=== PATIENT | female | born 1995 | race African-American/Black ===

== ENCOUNTER 2020-05-28 03:27 | Emergency (ER) | payer MEDICAID, SELFPAY ==
--- NOTE | 2020-05-28 | CT_ITS ---
EXAMINATION: CT ABDOMEN AND PELVIS WITH CONTRAST CLINICAL INFORMATION: Abdominal pain COMPARISON: 07/07/2019 TECHNIQUE: Multidetector volumetric images were obtained from the superior aspect of the liver through the pubic symphysis following administration 85 mL of Omnipaque 350 intravenous contrast. Sagittal and coronal reformatted images were obtained on the technologist's workstation. Oral contrast: No This CT examination was performed using dose optimization techniques as appropriate, variously including the following: *Automated exposure control *Adjustment of mA and/or kV according to patient size (this includes techniques or standardized protocols for targeted exams where dose is matched to indication/reason for exam; i.e. extremities or head) *Use of iterative reconstruction technique DLP: 437 mGy-cm FINDINGS: LUNG BASES: The visualized lung bases are unremarkable. LIVER, GALLBLADDER, AND BILIARY TREE: The liver is normal in size, shape, and attenuation. Mild focal fatty infiltration along the falciform. No focal hepatic lesion or biliary ductal dilatation is present. The gallbladder is unremarkable with no evidence of radiopaque gallstones, gallbladder wall thickening, or obvious pericholecystic inflammatory changes. PANCREAS: Unremarkable. SPLEEN: Unremarkable. ADRENAL GLANDS: Unremarkable. KIDNEYS AND URETERS: The kidneys are normal in size, shape, and attenuation. No hydronephrosis, hydroureter, or calculi seen. No perinephric stranding. BLADDER: Unremarkable. GASTROINTESTINAL TRACT: The stomach is unremarkable. Normal caliber small bowel. There is no obstruction. Normal appendix. No colonic wall thickening or acute inflammatory change. No free air. No significant free fluid. ABDOMINAL WALL: No significant hernia is appreciated. LYMPH NODES: Normal. VASCULAR: Unremarkable. PELVIC VISCERA: The uterus and adnexa are unremarkable. OSSEOUS STRUCTURES: No acute or suspicious osseous abnormality. IMPRESSION: No acute findings in the abdomen or pelvis. No inflammatory changes.
[2020-05-28 03:34] VITALS: BP 113/75; PULSE 98; RESP 18; TEMP 36.6; O2SAT 98; BMI 23.8
--- NOTE | 2020-05-28 04:09 | ED.SEIZURE ---
HPI - Seizure General Chief Complaint: Seizure Stated Complaint: SEIZURE,WITNESSED BY BF Time Seen by Provider: 05/28/20 04:07 History of Present Illness HPI Narrative: this is a 24-year-old female with history of seizures and reports her last seizure was 1 month ago and 2 weeks ago she started having adverse effects to a seizure medication that starts with a D and so her physician told her she could go ahead and simply take the Keppra which she has been doing consistently and states that the dose is 750 mg a day. She says the day before yesterday she was not feeling well and then last night began having seizures with incontinence of urine and she states that as per her significant other they were back to back . She states that her significant other cleaned her up in the bathtub and called EMS. She denies any recent fevers, chills, nausea, vomiting, diarrhea. Related Data Allergies Allergy/AdvReac Type Severity Reaction Status Date / Time haloperidol [From HALDOL] Allergy Intermediate TACHYCARDIA Unverified 05/06/20 16:38 FROM IV ROUTE, tachycardia metoclopramide [From REGLAN] Allergy Unknown LIKE I'M Unverified 05/06/20 16:38 GOING TO JUMP OUT OF MY SKIN , Feels like im going to jump out of my skin. SEASONAL ALLERGIES Allergy Unknown ITCHY./WATER Uncoded 05/06/20 16:38 EYES Review of Systems Review of Systems: Pertinent positives and negatives as stated in the HPI. GEN: no fevers, chills, fatigue HEENT: no nasal congestion, sore throat, ear pain NEURO: no headache, dizziness, focal weakness PULM: no cough, shortness of breath CV: no chest pain, palpitations, LE edema ABD: no abdominal pain, nausea, vomiting, diarrhea : no dysuria, urgency, frequency SKIN: no rash ROS otherwise negative x 10 PMFSH Past Medical History Source: nursing notes reviewed Medical History Anxiety Asthma Epilepsia Social History Social History Advance Directives: No Advance Directives Information Provided: No Physical Exam Vital Signs and I&O and Narrative: Vital Signs and I&O: Vital Signs Temp 98.0 F 05/28/20 07:25 Pulse 104 H 05/28/20 07:25 Resp 16 05/28/20 07:25 BP 125/88 05/28/20 07:25 Pulse Ox 100 05/28/20 07:25 Body Mass Index 23.8 VITAL SIGNS: Reviewed. GENERAL: Well developed, well nourished, in no acute distress. HEAD: Normocephalic/atraumatic, EYES: PERRLA, EOMI intact without pain, no nystagmus/pallor/icterus noted EARS: Ext canals without abnormality, TMs non-bulging and non-erythematous NOSE: Nares patent bilateral OROPHARYNX: no oral lesions noted, posterior pharynx clear and non-erythematous without noted tonsillar enlargement/erythema/exudates NECK: Supple, no adenopathy LUNGS: Normal breath sounds. No adventitious sounds or accessory muscle use. SpO2< 98%> CARDIOVASCULAR: Regular rate and rhythm without noted murmurs, no JVD or lower extremity edema. ABDOMEN: Soft, non-tender, non-distended with bowel sounds. No rigidity. No guarding. No palpable masses or hernias noted MUSCULOSKELETAL: No tenderness, deformities, or effusions noted on gross inspection. EXTREMITIES: No cyanosis, clubbing or edema. SKIN: Inspection of the skin reveals no rashes, ulcerations, jaundice, pallor, or petechiae. NEUROLOGIC: Alert and oriented x 4. Strength and sensation to light touch were grossly intact x 4. Course Course Course Narrative: This is a 24-year-old female with history and clinical presentation consistent with acute seizure with background of epilepsy. There has been recent adjustment to her medications which may explain the seizures that she experienced this evening, and while here in the emergency department she had a panic attack and received Ativan with good resolution of those symptoms. On arrival to the emergency department she was noted to no longer be postictal. On review of all workup there are no electrolyte, anemia, alternative or neurologic symptoms that would necessitate further evaluation in an inpatient setting. The thing was discussed with the patient at bedside, to include that this event is likely secondary to recent medication adjustments and patient acknowledges the need to follow-up with her primary care provider for further assessment. MDM - Seizure Lab Data Result diagrams: 05/28/20 05:28 05/28/20 05:28 Labs: Lab Results 05/28/20 05/28/20 05/28/20 Range/Units 05:28 05:28 05:28 WBC 12.5 H (4.8-10.8) X10*3/uL RBC 4.15 L (4.20-5.50) X10*6/uL Hgb 13.8 (12.0-16.0) g/dl Hct 40.4 (37-47) % MCV 97.3 (80-98) fL MCH 33.3 H (27.0-33.0) pg MCHC 34.2 (31.0-35.0) g/dl RDW 12.8 (11.0-16.0) % Plt Count 272 (160-400) X10*3/uL MPV 8.7 L (9.4-12.3) fL Immature Gran % (Auto) 0.2 (0.0-0.4) % Neut % (Auto) 83.7 H (45-73) % Lymph % (Auto) 11.2 L (20-40) % [place] % (Auto) 3.6 (2-11) % Eos % (Auto) 0.7 (0-4) % Baso % (Auto) 0.6 (0-2) % Lymph # (Auto) 1.4 (1.2-4.9) X10*3/uL [place] # (Auto) 0.5 (0.1-1.2) X10*3/uL Eos # (Auto) 0.1 (0.0-0.4) X10*3/uL Baso # (Auto) 0.1 (0.0-0.2) X10*3/uL Abs Immat Gran (auto) 0.03 (0.00-0.03) X10*3/uL Absolute Neuts (auto) 10.5 H (2.0-8.3) X10*3/uL Absolute Nucleated RBC 0.000 (0.0-0.012) X10*3/uL Nucleated RBC % (auto) 0.0 (0.0-0.2) /100WBC Sodium 141 (135-145) mmol/L Potassium 4.0 (3.3-5.1) mmol/l Chloride 110 H (96-108) mmol/L Carbon Dioxide 23 (22-29) mmol/L Anion Gap 12 (12-20) BUN 10 (9-16) mg/dL Creatinine 0.79 (0.5-1.4) mg/dL Estim Creat Clear Calc 87.6 Estimated GFR > 60 Random Glucose 117 H (60-115) mg/dL Calcium 9.0 (8.4-10.2) mg/dL Total Bilirubin 0.2 (0.0-1.0) mg/dL AST 17 (5-31) U/L ALT 10 (0-31) U/L Alkaline Phosphatase 35 L (39-117) U/L Total Protein 7.0 (6.5-8.0) g/dL Albumin 4.4 (3.5-5.0) g/dL Beta HCG, Quant < 2 mIU/mL Urine Color Urine Appearance Urine pH (5.0-8.0) Ur Specific [place] (1.005-1.025) Urine Protein (NEG-TRACE) MG/DL Urine Glucose (UA) (NEG) MG/DL Urine Ketones (NEG) MG/DL Urine Blood (NEG) Urine Nitrite (NEG) Ur Leukocyte Esterase (NEG) Urine RBC (0) /HPF Urine WBC (0-4) /HPF Ur Squamous Epith Cells /LPF Amorphous Sediment /LPF Urine Bacteria /LPF Urine Mucus /LPF Urine Test (NEGATIVE) Levetiracetam <1.0 L (12.0-46.0) mcg/mL 05/28/20 Range/Units 07:19 WBC (4.8-10.8) X10*3/uL RBC (4.20-5.50) X10*6/uL Hgb (12.0-16.0) g/dl Hct (37-47) % MCV (80-98) fL MCH (27.0-33.0) pg MCHC (31.0-35.0) g/dl RDW (11.0-16.0) % Plt Count (160-400) X10*3/uL MPV (9.4-12.3) fL Immature Gran % (Auto) (0.0-0.4) % Neut % (Auto) (45-73) % Lymph % (Auto) (20-40) % [place] % (Auto) (2-11) % Eos % (Auto) (0-4) % Baso % (Auto) (0-2) % Lymph # (Auto) (1.2-4.9) X10*3/uL [place] # (Auto) (0.1-1.2) X10*3/uL Eos # (Auto) (0.0-0.4) X10*3/uL Baso # (Auto) (0.0-0.2) X10*3/uL Abs Immat Gran (auto) (0.00-0.03) X10*3/uL Absolute Neuts (auto) (2.0-8.3) X10*3/uL Absolute Nucleated RBC (0.0-0.012) X10*3/uL Nucleated RBC % (auto) (0.0-0.2) /100WBC Sodium (135-145) mmol/L Potassium (3.3-5.1) mmol/l Chloride (96-108) mmol/L Carbon Dioxide (22-29) mmol/L Anion Gap (12-20) BUN (9-16) mg/dL Creatinine (0.5-1.4) mg/dL Estim Creat Clear Calc Estimated GFR Random Glucose (60-115) mg/dL Calcium (8.4-10.2) mg/dL Total Bilirubin (0.0-1.0) mg/dL AST (5-31) U/L ALT (0-31) U/L Alkaline Phosphatase (39-117) U/L Total Protein (6.5-8.0) g/dL Albumin (3.5-5.0) g/dL Beta HCG, Quant mIU/mL Urine Color YELLOW Urine Appearance HAZY Urine pH 8.5 H (5.0-8.0) Ur Specific [place] 1.010 (1.005-1.025) Urine Protein NEG (NEG-TRACE) MG/DL Urine Glucose (UA) NEG (NEG) MG/DL Urine Ketones NEG (NEG) MG/DL Urine Blood 1+ H (NEG) Urine Nitrite NEG (NEG) Ur Leukocyte Esterase NEG (NEG) Urine RBC 0-2 (0) /HPF Urine WBC 0 (0-4) /HPF Ur Squamous Epith Cells TRACE /LPF Amorphous Sediment 2+ /LPF Urine Bacteria NONE /LPF Urine Mucus 1+ /LPF Urine Test NEGATIVE (NEGATIVE) Levetiracetam (12.0-46.0) mcg/mL Discharge Plan Discharge Clinical Impression: Seizure Patient Disposition: Home, Self-Care Instructions: Epilepsy (ED) Additional Instructions: Resume all home medications as prescribed. Please call the office of your primary care provider today and schedule a follow-up appointment. The patient and/or family acknowledge understanding of results (as applicable), diagnosis, treatment plan, need for follow up, and symptoms that should prompt a return to the emergency room. Referrals: Arianne Goldberg NP [Nurse Practitioner] - 2 days ( Recurrent seizures and follow-up on Keppra level) Interventions: ED Discharge Assessment Last Done: 05/28/20 08:01 Discharge Date/Time: 05/28/20 08:10
[2020-05-28 04:55] VITALS: BP 115/75; PULSE 110; RESP 20
[2020-05-28] MEDS: ondansetron HCL 4 MG/2 ML VIAL IVPUSH (05:29)
[2020-05-28 05:33] LABS: MANUAL DIFF FLAG NO
[2020-05-28 05:34] LABS: Basophils Absolute Auto 0.1 X10*3/uL (0.0-0.2); Basophils Percent Auto 0.6 % (0-2); Eosinophils Absolute Auto 0.1 X10*3/uL (0.0-0.4); Eosinophils Percent Auto 0.7 % (0-4); Hematocrit 40.4 % (37-47); Hemoglobin 13.8 g/dl (12.0-16.0); Imm Gran Abs Auto 0.03 X10*3/uL (0.00-0.03); Imm Gran Pct Auto 0.2 % (0.0-0.4); Lymphocytes Absolute Auto 1.4 X10*3/uL (1.2-4.9); Lymphocytes Percent Auto 11.2 % (20-40); Mean Corpuscular HGB Conc 34.2 g/dl (31.0-35.0); Mean Corpuscular Hemoglobin 33.3 pg (27.0-33.0); Mean Corpuscular Volume 97.3 fL (80-98); Mean Platelet Volume 8.7 fL (9.4-12.3); Monocytes Absolute Auto 0.5 X10*3/uL (0.1-1.2); Monocytes Percent Auto 3.6 % (2-11); Neutrophils Absolute Auto 10.5 X10*3/uL (2.0-8.3); Neutrophils Percent Auto 83.7 % (45-73); Platelet Count 272 X10*3/uL (160-400); Red Blood Count 4.15 X10*6/uL (4.20-5.50); Red Cell Distribution Width 12.8 % (11.0-16.0); White Blood Count 12.5 X10*3/uL (4.8-10.8)
[2020-05-28 05:58] LABS: Alanine Aminotransferase 10 U/L (0-31); Albumin Level 4.4 g/dL (3.5-5.0); Alkaline Phosphatase 35 U/L (39-117); Anion Gap 12 (12-20); Aspartate Amino Transferase 17 U/L (5-31); Bilirubin Total 0.2 mg/dL (0.0-1.0); Blood Urea Nitrogen 10 mg/dL (9-16); Carbon Dioxide 23 mmol/L (22-29); Chloride 110 mmol/L (96-108); Creatinine Clr Calc Pharmacy 87.6; Estimated Glomerular Filt Rate > 60; Glucose Random 117 mg/dL (60-115); Sodium 141 mmol/L (135-145)
[2020-05-28] MEDS: iohexoL 350 MG/ML 100 ML INFUS..BTL 85 ML IV (06:14)
[2020-05-28 06:15] LABS: HCG Quantitative < 2 mIU/mL
[2020-05-28] MEDS: HYDROmorphone HCl 0.5 MG/0.5 ML SYRINGE IVPUSH (06:19)
[2020-05-28 06:22] VITALS: BP 115/75; PULSE 98; RESP 18; TEMP 36.7; O2SAT 100
[2020-05-28 07:25] VITALS: BP 125/88; PULSE 104; RESP 16; TEMP 36.7; O2SAT 100
[2020-05-28 07:38] LABS: Glucose Urine UA NEG (NEG); Leukocyte Esterase Urine NEG (NEG); Nitrite Urine NEG (NEG); PH 8.5 (5.0-8.0); Urine Blood 1+ (NEG); Urine Ketones NEG (NEG); Urine Protein NEG (NEG-TRACE)
[2020-05-28 07:44] LABS: Appearance Urine HAZY; Color Urine YELLOW
[2020-05-28 07:52] LABS: Amorphous Sediment Urine 2+ /LPF; Mucus Urine 1+ /LPF; RBC Urine 0-2 /HPF (0); Squamous Epithelial Cell Urine TRACE /LPF; WBC Urine 0 /HPF (0-4)
[2020-05-28 07:53] LABS: UPreg QC Valid YES; Urine Pregnancy NEGATIVE (NEGATIVE)
[2020-06-02 17:31] LABS: Levetiracetam Keppra <1.0 mcg/mL (12.0-46.0)
== END 2020-05-28 08:10 | disposition home or self-care (01) ==
PROVIDERS: Emergency Provider Student in an Organized Health Care Education/Training Program
DX: R56.9 Unspecified convulsions (principal)
CPT/HCPCS: 36415; 74177; 80053; 80177; 81001; 81025; 84702; 85025; 96374; 96375; 99284; J1170; J2405

== ENCOUNTER 2020-07-22 10:08 | Emergency (ER) | payer MEDICAID, SELFPAY ==
[2020-07-22 10:25] VITALS: BP 140/79; PULSE 87; RESP 16; TEMP 37; O2SAT 99; BMI 23.8
--- NOTE | 2020-07-22 10:46 | ED_ITS ---
HPI - Abdominal Pain General Chief Complaint: Abdominal Pain Stated Complaint: cramping spotting Time Seen by Provider: 07/22/20 10:34 Source: patient Mode of arrival: ambulatory History of Present Illness HPI narrative: 25-year-old female with a past medical history of anxiety, asthma, epilepsy, presenting to ED complaining of lower abdominal cramping x1 week. Admits had vaginal spotting, brownish in color starting on 07/16, lasting 2 days, saw OBGYN who did Pap smear, urine and STI testing that was negative. Patient reports vaginal spotting/discharge has stopped, but cramping continues. Admits to associated low back pain. LMP 06/28/2020. Patient is sexually active with 1 partner, denies concern for STI. Denies fever, chills, vomiting/diarrhea, dysuria/hematuria. MD elicited complaint: abdominal pain Related Data Allergies Allergy/AdvReac Type Severity Reaction Status Date / Time haloperidol [From HALDOL] Allergy Intermediate TACHYCARDIA Unverified 05/06/20 16:38 FROM IV ROUTE, tachycardia metoclopramide [From REGLAN] Allergy Unknown LIKE I'M Unverified 05/06/20 16:38 GOING TO JUMP OUT OF MY SKIN , Feels like im going to jump out of my skin. SEASONAL ALLERGIES Allergy Unknown ITCHY./WATER Uncoded 05/06/20 16:38 EYES Review of Systems Review of Systems Constitutional: No Weight loss, No Fever, No Chills Cardiovascular: No Chest Pain, No SOB Gastrointestinal: + Nausea, No Vomiting, No Diarrhea, No Constipation, + Abdominal pain Genitourinary: No irregular bleeding, No Dysuria, No Urinary Frequency, No Hematuria, No Flank Pain Skin: No Skin Lesions, No rash Yes all other systems are reviewed and are negative Physical Exam Vital Signs: Vital Signs: Last Vital Signs Temp 98.6 F 07/22/20 10:25 Pulse 87 07/22/20 10:25 Resp 16 07/22/20 10:25 BP 140/79 H 07/22/20 10:25 Pulse Ox 99 07/22/20 10:25 Body Mass Index 23.8 Const: General: cooperative and healthy appearing Orientation/consciousness: patient oriented x3 Limitations: no limitations HENMT: Head: Yes normal to inspection Ears: hearing grossly normal bilaterally General nose exam: Normal external nose present Face and sinus: Yes normal facial exam Eyes: General: appearance normal, both eyes and all related structures EOM: EOMs intact bilaterally Neck: Neck: Yes normal visual inspection Resp: Effort & Inspection: normal respiratory effort Cardio: Rate: regular rate GI: Inspection: Yes normal to inspection Palpation (GI): Soft to palpation, nontender, no guarding and not rigid : Other: Pelvic exam deferred General: Yes no CVA tenderness Back/Spine/Pelvis: Back: no CVA tenderness Skin: Rashes: no rashes Wounds: no wounds Neuro: General: patient oriented x3 Gait exam (Neuro): Normal gait present Extrem: General: Yes normal to inspection Course Course Course Narrative: -1222--labs unremarkable, beta quant negative, UA negative Results discussed with patient including close PCP/professor of apologetics follow-up. Worrisome signs and symptoms and strict return precautions discussed. Patient verbalized understanding feel safe for discharge home MDM - Abdominal Pain MDM Narrative Medical decision making narrative: 25-year-old female with a past medical history of anxiety, asthma, epilepsy, presenting to ED complaining of lower abdominal cramping x1 week. On exam VSS, NAD/well-appearing, abdomen soft/nontender. Concern for vs UTI. Low concern for appendicitis/diverticulitis/ovarian cyst or torsion without tenderness on exam. Unlikely STI with recent negative STI testing Plan: Labs, UA, reassess Lab Data Result diagrams: 07/22/20 11:13 07/22/20 11:13 Labs: Lab Results 07/22/20 07/22/20 07/22/20 Range/Units 11:00 11:13 11:13 WBC 7.4 (4.8-10.8) X10*3/uL RBC 4.18 L (4.20-5.50) X10*6/uL Hgb 13.7 (12.0-16.0) g/dl Hct 40.0 (37-47) % MCV 95.7 (80-98) fL MCH 32.8 (27.0-33.0) pg MCHC 34.3 (31.0-35.0) g/dl RDW 12.5 (11.0-16.0) % Plt Count 252 (160-400) X10*3/uL MPV 8.9 L (9.4-12.3) fL Immature Gran % (Auto) 0.3 (0.0-0.4) % Neut % (Auto) 73.8 H (45-73) % Lymph % (Auto) 19.7 L (20-40) % [place] % (Auto) 4.9 (2-11) % Eos % (Auto) 0.4 (0-4) % Baso % (Auto) 0.9 (0-2) % Lymph # (Auto) 1.5 (1.2-4.9) X10*3/uL [place] # (Auto) 0.4 (0.1-1.2) X10*3/uL Eos # (Auto) 0.0 (0.0-0.4) X10*3/uL Baso # (Auto) 0.1 (0.0-0.2) X10*3/uL Abs Immat Gran (auto) 0.02 (0.00-0.03) X10*3/uL Absolute Neuts (auto) 5.4 (2.0-8.3) X10*3/uL Absolute Nucleated RBC 0.000 (0.0-0.012) X10*3/uL Nucleated RBC % (auto) 0.0 (0.0-0.2) /100WBC Hold Blue Top SEE NOTE Sodium (135-145) mmol/L Potassium (3.3-5.1) mmol/l Chloride (96-108) mmol/L Carbon Dioxide (22-29) mmol/L Anion Gap (12-20) BUN (9-16) mg/dL Creatinine (0.5-1.4) mg/dL Estim Creat Clear Calc Estimated GFR Random Glucose (60-115) mg/dL Calcium (8.4-10.2) mg/dL Magnesium (1.6-2.6) mg/dL Total Bilirubin (0.0-1.0) mg/dL Direct Bilirubin (0.0-0.5) mg/dL AST (5-31) U/L ALT (0-31) U/L Alkaline Phosphatase (39-117) U/L Total Protein (6.5-8.0) g/dL Albumin (3.5-5.0) g/dL Lipase (8-78) U/L Beta HCG, Quant mIU/mL Urine Color YELLOW Urine Appearance HAZY Urine pH 7.0 (5.0-8.0) Ur Specific [place] 1.020 (1.005-1.025) Urine Protein NEG (NEG-TRACE) MG/DL Urine Glucose (UA) NEG (NEG) MG/DL Urine Ketones NEG (NEG) MG/DL Urine Blood 1+ H (NEG) Urine Nitrite NEG (NEG) Ur Leukocyte Esterase TRACE H (NEG) Urine RBC 1-4 (0) /HPF Urine WBC 1-4 (0-4) /HPF Ur Squamous Epith Cells 1+ /LPF Urine Bacteria NONE /LPF Urine Mucus 2+ /LPF Urine Test NEGATIVE (NEGATIVE) 07/22/20 Range/Units 11:13 WBC (4.8-10.8) X10*3/uL RBC (4.20-5.50) X10*6/uL Hgb (12.0-16.0) g/dl Hct (37-47) % MCV (80-98) fL MCH (27.0-33.0) pg MCHC (31.0-35.0) g/dl RDW (11.0-16.0) % Plt Count (160-400) X10*3/uL MPV (9.4-12.3) fL Immature Gran % (Auto) (0.0-0.4) % Neut % (Auto) (45-73) % Lymph % (Auto) (20-40) % [place] % (Auto) (2-11) % Eos % (Auto) (0-4) % Baso % (Auto) (0-2) % Lymph # (Auto) (1.2-4.9) X10*3/uL [place] # (Auto) (0.1-1.2) X10*3/uL Eos # (Auto) (0.0-0.4) X10*3/uL Baso # (Auto) (0.0-0.2) X10*3/uL Abs Immat Gran (auto) (0.00-0.03) X10*3/uL Absolute Neuts (auto) (2.0-8.3) X10*3/uL Absolute Nucleated RBC (0.0-0.012) X10*3/uL Nucleated RBC % (auto) (0.0-0.2) /100WBC Hold Blue Top Sodium 141 (135-145) mmol/L Potassium 3.7 (3.3-5.1) mmol/l Chloride 107 (96-108) mmol/L Carbon Dioxide 26 (22-29) mmol/L Anion Gap 12 (12-20) BUN 6 L (9-16) mg/dL Creatinine 0.72 (0.5-1.4) mg/dL Estim Creat Clear Calc 95.3 Estimated GFR > 60 Random Glucose 94 (60-115) mg/dL Calcium 8.8 (8.4-10.2) mg/dL Magnesium 2.0 (1.6-2.6) mg/dL Total Bilirubin 0.5 (0.0-1.0) mg/dL Direct Bilirubin 0.2 (0.0-0.5) mg/dL AST 16 (5-31) U/L ALT 9 (0-31) U/L Alkaline Phosphatase 34 L (39-117) U/L Total Protein 6.8 (6.5-8.0) g/dL Albumin 4.4 (3.5-5.0) g/dL Lipase 26 (8-78) U/L Beta HCG, Quant < 2 mIU/mL Urine Color Urine Appearance Urine pH (5.0-8.0) Ur Specific [place] (1.005-1.025) Urine Protein (NEG-TRACE) MG/DL Urine Glucose (UA) (NEG) MG/DL Urine Ketones (NEG) MG/DL Urine Blood (NEG) Urine Nitrite (NEG) Ur Leukocyte Esterase (NEG) Urine RBC (0) /HPF Urine WBC (0-4) /HPF Ur Squamous Epith Cells /LPF Urine Bacteria /LPF Urine Mucus /LPF Urine Test (NEGATIVE) Discharge Plan Discharge Clinical Impression: Abdominal pain Patient Disposition: Home, Self-Care Instructions: Abdominal Pain (ED) Additional Instructions: Your blood work, urine, and were negative It is important for you to follow-up with her primary care doctor and your OBGYN If her symptoms persist or worsen, pain becomes unbearable, he developed vaginal bleeding or discharge, nausea/vomiting, or fever return to the ED Referrals: Physician,Unknown [Primary Care Provider] - 2 days PMFSH Past Medical History Attestation statement: The following information was validated with the patient. Medical History Anxiety Asthma Epilepsia Social History Social History Advance Directives: No Advance Directives Information Provided: No
[2020-07-22 11:07] LABS: Glucose Urine UA NEG (NEG); Leukocyte Esterase Urine TRACE (NEG); Nitrite Urine NEG (NEG); Urine Blood 1+ (NEG); Urine Ketones NEG (NEG); Urine Protein NEG (NEG-TRACE)
[2020-07-22 11:08] LABS: Appearance Urine HAZY; Color Urine YELLOW
[2020-07-22 11:09] LABS: UPreg QC Valid YES; Urine Pregnancy NEGATIVE (NEGATIVE)
[2020-07-22 11:14] LABS: Squamous Epithelial Cell Urine 1+ /LPF
[2020-07-22 11:15] LABS: Mucus Urine 2+ /LPF
[2020-07-22] MEDS: Lidocaine 4 % Patch ADH..PATCH 1 PATCH TRANSDERMA (11:17)
[2020-07-22 11:18] LABS: MANUAL DIFF FLAG NO
[2020-07-22] MEDS: Acetaminophen 325 MG TABLET 650 MG PO (11:18)
[2020-07-22 11:19] LABS: Basophils Absolute Auto 0.1 X10*3/uL (0.0-0.2); Basophils Percent Auto 0.9 % (0-2); Eosinophils Percent Auto 0.4 % (0-4); Hemoglobin 13.7 g/dl (12.0-16.0); Imm Gran Abs Auto 0.02 X10*3/uL (0.00-0.03); Imm Gran Pct Auto 0.3 % (0.0-0.4); Lymphocytes Absolute Auto 1.5 X10*3/uL (1.2-4.9); Lymphocytes Percent Auto 19.7 % (20-40); Mean Corpuscular HGB Conc 34.3 g/dl (31.0-35.0); Mean Corpuscular Hemoglobin 32.8 pg (27.0-33.0); Mean Corpuscular Volume 95.7 fL (80-98); Mean Platelet Volume 8.9 fL (9.4-12.3); Monocytes Absolute Auto 0.4 X10*3/uL (0.1-1.2); Monocytes Percent Auto 4.9 % (2-11); Neutrophils Absolute Auto 5.4 X10*3/uL (2.0-8.3); Neutrophils Percent Auto 73.8 % (45-73); Platelet Count 252 X10*3/uL (160-400); Red Blood Count 4.18 X10*6/uL (4.20-5.50); Red Cell Distribution Width 12.5 % (11.0-16.0); White Blood Count 7.4 X10*3/uL (4.8-10.8)
[2020-07-22 11:56] LABS: Alanine Aminotransferase 9 U/L (0-31); Albumin Level 4.4 g/dL (3.5-5.0); Alkaline Phosphatase 34 U/L (39-117); Aspartate Amino Transferase 16 U/L (5-31); Bilirubin Direct 0.2 mg/dL (0.0-0.5); Bilirubin Total 0.5 mg/dL (0.0-1.0); Blood Urea Nitrogen 6 mg/dL (9-16); Calcium 8.8 mg/dL (8.4-10.2); Creatinine Clr Calc Pharmacy 95.3; Estimated Glomerular Filt Rate > 60; Glucose Random 94 mg/dL (60-115); Lipase 26 U/L (8-78); Total Protein 6.8 g/dL (6.5-8.0)
[2020-07-22 11:59] LABS: HCG Quantitative < 2 mIU/mL
[2020-07-22 12:05] LABS: Anion Gap 12 (12-20); Carbon Dioxide 26 mmol/L (22-29); Chloride 107 mmol/L (96-108); Potassium 3.7 mmol/l (3.3-5.1); Sodium 141 mmol/L (135-145)
== END 2020-07-22 12:45 | disposition home or self-care (01) ==
PROVIDERS: Physician Assistant; Emergency Provider Emergency Medicine
DX: R10.30 Lower abdominal pain, unspecified (principal)
CPT/HCPCS: 36415; 80048; 80076; 81001; 81003; 81025; 83690; 83735; 84702; 85025; 87086; 99284

== ENCOUNTER 2020-09-08 15:23 | Outpatient (REF) | payer MEDICAID, SELFPAY | END 2020-09-08 15:24 | disposition home or self-care (01) | LOC: CF 15:23 | PROVIDERS: Visit Provider Obstetrics & Gynecology | DX: R87.611 Atypical squamous cells cannot exclude high grade squamous intraepithelial lesion on cytologic smear of cervix (ASC-H) (principal) | CPT/HCPCS: 57454; 81025; 88305 ==

== ENCOUNTER 2020-09-24 11:03 | Emergency (ER) | payer MEDICAID, SELFPAY ==
[2020-09-24 11:23] VITALS: BP 138/78; PULSE 94; RESP 18; TEMP 36.7; O2SAT 99; BMI 21.9
== END 2020-09-24 16:26 | disposition left against medical advice (07) ==
PROVIDERS: Emergency Provider Emergency Medicine
DX: R10.9 Unspecified abdominal pain (principal)
CPT/HCPCS: 99281; 99282

== ENCOUNTER 2020-09-29 07:11 | Emergency (ER) | payer MEDICAID, SELFPAY ==
[2020-09-29 07:17] VITALS: BP 116/59; BP 96/71; PULSE 100; PULSE 90; RESP 20; TEMP 37.3; O2SAT 97; BMI 23.8
--- NOTE | 2020-09-29 08:12 | ED.GENADULT ---
HPI - General Adult General Chief complaint: Abdominal Pain Stated complaint: EPIGASTRIC PAIN W/VOMITING X'S 2 WEEKS Time Seen by Provider: 09/29/20 07:46 Source: patient Mode of arrival: ambulatory Limitations: no limitations History of Present Illness HPI narrative: 25-year-old female who presents the emergency department for evaluation of nausea, vomiting and abdominal pain. Patient states that she has had symptoms for 2 weeks. She points to her mid epigastric area when asked to localize the pain. She describes the pain as a constant pain which waxes and wanes in intensity. The pain is a pressure-like tightness which is moderate to severe in intensity. She has constant nausea and multiple episodes of vomiting. The pain does not change with hunger or with eating food. She states she has had good bowel movements and normal urine output. She states that she had a colonoscopy and endoscopy in the past and was told that she has superficial ulcers. She also believes that she had H pylori in the past but does not believe that she was treated with antibiotics. The patient states that she has had recurrence symptoms over the past 3-6 months. She states that this morning, her symptoms became worse therefore she came to the emergency department for evaluation. The patient states that she does smoke marijuana daily. She uses marijuana 2-3 times per day. She states that she was told that she may have cannabis hyperemesis syndrome/cyclic vomiting syndrome. She states that she stopped using marijuana for 6 months and this did not improve her symptoms. Related Data Previous Rx's Medication Instructions Recorded fluconazole 150 mg tablet 150 mg PO DAILY #1 tab 09/20/20 Allergies Allergy/AdvReac Type Severity Reaction Status Date / Time haloperidol [From HALDOL] Allergy Intermediate TACHYCARDIA Verified 09/24/20 11:22 FROM IV ROUTE, tachycardia metoclopramide [From REGLAN] Allergy Unknown LIKE I'M Verified 09/24/20 11:22 GOING TO JUMP OUT OF MY SKIN , Feels like im going to jump out of my skin. SEASONAL ALLERGIES Allergy Unknown ITCHY./WATER Uncoded 09/24/20 11:22 EYES Review of Systems Review of Systems: Yes all other systems are reviewed and are negative Neurologic: Reports Abnormal speech present [facility] Past Medical History [facility] Narrative: The patient denies tobacco, alcohol use. She does smoke marijuana 2-3 times per day. Medical History Anxiety Asthma VENUS III (cervical intraepithelial neoplasia grade III) with severe dysplasia Epilepsia Gastritis Stomach ulcer Social History Social History Alcohol intake: unknown Smoked in Last 30 Days: No Use of substances other than those prescribed or required for medical reasons: No Advance Directives: No Advance Directives Information Provided: No Physical Exam Vital Signs: Vital Signs: Last Vital Signs Temp 99.2 F 09/29/20 07:17 Pulse 90 09/29/20 07:17 Resp 20 09/29/20 07:17 BP 116/59 L 09/29/20 07:17 Pulse Ox 97 09/29/20 07:17 Body Mass Index 23.8 Const: General: cooperative and other (Anxious, shaking, holding her stomach secondary to pain) Orientation/consciousness: oriented to person and oriented to place Limitations: no limitations HENMT: Head: Yes normal to inspection, Yes normocephalic and Yes atraumatic Ears: external ears normal General nose exam: Normal external nose present Face and sinus: Yes normal facial exam Mouth: Normal oral and palatal mucosa present Throat: Yes posterior oropharynx normal Eyes: Periorbital: periorbital findings normal Eyelids: Yes eyelids normal Conjunctivae: conjunctivae normal Sclerae: sclerae normal Corneas: corneas normal Pupils: Equal, round and reactive pupils present Direct Ophthalmoscopy: normal light reflex Neck: Neck: Yes full ROM, Yes no lymphadenopathy, Yes no meningeal signs, Yes trachea midline and Yes supple Chest: Chest palpation & inspection: normal inspection of the chest and normal palpation of entire chest wall Resp: Effort & Inspection: normal respiratory effort and able to speak in complete sentences Auscultation: clear to auscultation bilaterally Cardio: Rate: regular rate Rhythm: regular rhythm Heart sounds: S1 normal heart sound present, S2 normal heart sound present and no murmurs GI: Inspection: Yes normal to inspection Palpation (GI): Soft to palpation, Tenderness to palpation present (GI) in the epigastrum (Moderate), no guarding, not rigid and No hepatosplenomegaly present : General: Yes no CVA tenderness Back/Spine/Pelvis: Back: no CVA tenderness Cervical Spine: normal cervical lordosis Thoracic/Lumbar Spine: thoracic and lumbar spine normal to inspection Skin: Lesions: no lesions Rashes: no rashes Wounds: no wounds Neuro: General: oriented to person, oriented to place and no meningeal signs Cranial nerves: Yes CN's II-XII intact bilaterally and Yes Equal, round and reactive pupils present Cognition (Neuro): normal cognition Speech: Abnormal speech present Motor exam (neuro): 5/5 motor strength present throughout Extrem: General: Yes normal to inspection and Yes full ROM Psych: Appearance: well kempt Mental Status: mental status grossly normal Speech and movement: Normal speech and movement present Affect: normal affect Attitude: cooperative Thought process: Normal thought process present Thought content: Normal thought content present Course Course Course Narrative: 25-year-old female who presents emergency department for evaluation epigastric pain, nausea and vomiting x2 weeks, she has had similar symptoms in the past and has been diagnosed with cyclic vomiting syndrome in the past as well. The patient continues to use marijuana to 3 times a day but states that she had a 6 month period where she did not use marijuana and continued to have symptoms. She also states that she has had ulcers in the past and has been diagnosed with H pylori in the past but does not know she has been treated for H pylori. Physical examination did reveal a healthy-appearing woman who did appear to be in distress secondary to her abdominal pain. She did have midepigastric tenderness otherwise exam was unremarkable. I did order laboratory evaluation on this patient. Her pain was treated with Toradol 30 mg IV, nausea and vomiting were treated with Zofran 4 mg IV and Ativan 1 mg IV. She was also ordered to get normal saline x1 L. Discharge Plan Discharge Prescriptions: No Action fluconazole 150 mg tablet 150 mg PO DAILY Qty: 1 RF: 0
[2020-09-29] MEDS: ondansetron HCL 4 MG/2 ML VIAL IVPUSH (08:31)
[2020-09-29] MEDS: Ketorolac Tromethamine 30 MG/ML VIAL IVPUSH (08:31)
[2020-09-29] MEDS: LORazepam 2 MG/ML VIAL 1 MG IVPUSH (08:31)
[2020-09-29] MEDS: 0.9 % Sodium Chloride 1,000 ML 999 ML IV (08:31)
[2020-09-29 08:35] LABS: MANUAL DIFF FLAG NO
[2020-09-29 08:37] LABS: Basophils Absolute Auto 0.1 X10*3/uL (0.0-0.2); Basophils Percent Auto 0.8 % (0-2); Eosinophils Absolute Auto 0.1 X10*3/uL (0.0-0.4); Eosinophils Percent Auto 0.6 % (0-4); Hematocrit 39.5 % (37-47); Hemoglobin 13.6 g/dl (12.0-16.0); Imm Gran Abs Auto 0.03 X10*3/uL (0.00-0.03); Imm Gran Pct Auto 0.3 % (0.0-0.4); Lymphocytes Absolute Auto 1.3 X10*3/uL (1.2-4.9); Lymphocytes Percent Auto 11.3 % (20-40); Mean Corpuscular HGB Conc 34.4 g/dl (31.0-35.0); Mean Corpuscular Volume 95.9 fL (80-98); Mean Platelet Volume 8.9 fL (9.4-12.3); Monocytes Absolute Auto 0.5 X10*3/uL (0.1-1.2); Neutrophils Absolute Auto 9.7 X10*3/uL (2.0-8.3); Platelet Count 238 X10*3/uL (160-400); Red Blood Count 4.12 X10*6/uL (4.20-5.50); Red Cell Distribution Width 12.2 % (11.0-16.0); White Blood Count 11.7 X10*3/uL (4.8-10.8)
[2020-09-29 08:49] LABS: Glucose Urine UA NEG (NEG); Leukocyte Esterase Urine NEG (NEG); Nitrite Urine NEG (NEG); PH 7.5 (5.0-8.0); Specific Gravity - Urine 1.015 (1.005-1.025); Urine Blood NEG (NEG); Urine Ketones NEG (NEG); Urine Protein NEG (NEG-TRACE)
[2020-09-29 08:52] LABS: UPreg QC Valid YES; Urine Pregnancy NEGATIVE (NEGATIVE)
[2020-09-29 08:53] LABS: Appearance Urine CLEAR; Color Urine YELLOW
[2020-09-29 09:09] LABS: Alanine Aminotransferase 8 U/L (0-31); Albumin Level 4.3 g/dL (3.5-5.0); Alkaline Phosphatase 33 U/L (39-117); Anion Gap 12 (12-20); Aspartate Amino Transferase 15 U/L (5-31); Bilirubin Total 0.5 mg/dL (0.0-1.0); Blood Urea Nitrogen 9 mg/dL (9-16); Calcium 8.6 mg/dL (8.4-10.2); Carbon Dioxide 27 mmol/L (22-29); Chloride 103 mmol/L (96-108); Creatinine Clr Calc Pharmacy 91.5; Estimated Glomerular Filt Rate > 60; Glucose Random 90 mg/dL (60-115); Lipase 41 U/L (8-78); Potassium 4.3 mmol/L (3.3-5.1); Sodium 138 mmol/L (135-145); Total Protein 6.7 g/dL (6.5-8.0)
[2020-09-29 10:27] VITALS: BP 102/54; PULSE 85; RESP 16; O2SAT 100
== END 2020-09-29 11:24 | disposition left against medical advice (07) ==
PROVIDERS: Emergency Provider Emergency Medicine Emergency Medical Services; PCP Family Medicine
DX: R10.13 Epigastric pain (principal); R11.2 Nausea with vomiting, unspecified; F12.988 Cannabis use, unspecified with other cannabis-induced disorder
CPT/HCPCS: 36415; 80053; 81003; 81025; 83690; 85025; 96361; 96374; 96375; 99284; J1885; J2060; J2405

== ENCOUNTER 2020-10-27 17:18 | Emergency (ER) | payer MEDICAID, SELFPAY ==
--- NOTE | ~2020-10-27 | XR_ITS ---
EXAMINATION: XR CHEST CLINICAL INFORMATION: Chest pain. COMPARISON: Chest 03/20/2016 TECHNIQUE: Frontal view of the chest was obtained. FINDINGS: The lungs are well-expanded and clear of acute process. Incidentally noted is a round nodule measuring 9 mm in left upper lobe overlying the third posterior rib. Heart size and pulmonary vascularity is normal. No gross bony abnormality seen. XR/XR chest 1V IMPRESSION: No acute process seen. Incidentally noted is new a left upper lobe round nodule.
[2020-10-27 17:47] VITALS: BP 112/74; BP 140/90; PULSE 120; PULSE 130; RESP 20; TEMP 36.9; O2SAT 100; O2SAT 97; BMI 29.2
--- NOTE | 2020-10-27 18:29 | ED_ITS ---
HPI - URI/Sore Throat General Chief Complaint: Upper Respiratory Symptoms Stated Complaint: SOB Time Seen by Provider: 10/27/20 18:29 Source: patient Mode of arrival: ambulatory Limitations: no limitations History of Present Illness HPI Narrative: Patient tested positive for COVID last week now with neck and chest pain Onset (ago): day(s) Consistency: constant Severity: moderate Associated symptoms: cough Related Data Previous Rx's Medication Instructions Recorded fluconazole 150 mg tablet 150 mg PO DAILY #1 tab 09/20/20 Allergies Allergy/AdvReac Type Severity Reaction Status Date / Time haloperidol [From HALDOL] Allergy Intermediate TACHYCARDIA Verified 10/27/20 17:52 FROM IV ROUTE, tachycardia metoclopramide [From REGLAN] Allergy Unknown LIKE I'M Verified 10/27/20 17:52 GOING TO JUMP OUT OF MY SKIN , Feels like im going to jump out of my skin. SEASONAL ALLERGIES Allergy Unknown ITCHY./WATER Uncoded 10/27/20 17:52 EYES Review of Systems Constitutional: Constitutional: Reports no additional constitutional complaints Eyes: Eyes: Reports no additional eye complaints ENT: Denies dizziness Cardiovascular: Cardiovascular: Reports no additional cardiovascular complaints Respiratory: Respiratory: Reports as per HPI Gastrointestinal: Gastrointestinal: Reports no additional gastrointestinal complaints Genitourinary: Genitourinary: Reports no additional female genitourinary complaints Musculoskeletal: Musculoskeletal: Reports no additional musculoskeletal complaints Integumentary/Breasts: Skin/Breast: Denies rash Neurologic: Reports system reviewed and no additional complaints, except as documented, Denies dizziness and Denies Sensory deficit (Neuro) Psychiatric: Psychiatric: Denies anxiety PMFSH Past Medical History Medical History Anxiety Asthma VENUS III (cervical intraepithelial neoplasia grade III) with severe dysplasia Epilepsia Gastritis Stomach ulcer Social History Social History Alcohol intake: unknown Advance Directives: No Advance Directives Information Provided: Yes Physical Exam Vital Signs: Vital Signs: Last Vital Signs Temp 97.9 F 10/27/20 19:11 Pulse 98 10/27/20 19:11 Resp 20 10/27/20 19:11 BP 109/73 10/27/20 19:11 Pulse Ox 100 10/27/20 19:11 Body Mass Index 29.2 Const: Other: Patient crying and screaming with actions out of proportion to findings General: healthy appearing Nutritional Appearance: average body habitus Orientation/consciousness: oriented to person and patient oriented x3 Limitations: no limitations HENMT: Head: Yes normal to inspection Ears: external ears normal General nose exam: Normal external nose present Mouth: Normal oral and palatal mucosa present and oropharynx normal Throat: Yes posterior oropharynx normal Eyes: General: appearance normal, both eyes and all related structures Neck: Other: supple, right sternocleidomastoid tenderness, no masses, trachea midline Neck: Yes normal visual inspection Chest: Chest palpation & inspection: normal inspection of the chest Resp: Auscultation: clear to auscultation bilaterally Cardio: Jugular venous distension: no JVD Rate: regular rate Rhythm: regular rhythm Heart sounds: S1 normal heart sound present and S2 normal heart sound present GI: Inspection: Yes normal to inspection Palpation (GI): Soft to palpation, nontender and No hepatosplenomegaly present Auscultation: normal bowel sounds : General: Yes no CVA tenderness Back/Spine/Pelvis: Back: no CVA tenderness Skin: General skin exam: no rashes or lesions noted Neuro: General: oriented to person and patient oriented x3 Cranial nerves: Yes CN's II-XII intact bilaterally Motor exam (neuro): 5/5 motor strength present throughout Sensory Exam: No Sensory deficit (Neuro) Extrem: General: Yes normal to inspection Psych: Appearance: grossly normal Course Course Course Narrative: resting comfotably MDM - URI/Sore Throat MDM Narrative Medical decision making narrative: Discussed pulmonary nodule with radiologist cxr to be repeated in 1 month. In a 25 year old not likely to be tumor Differential Diagnosis Differential diagnosis: Likely upper respiratory infection and viral infection Imaging Data Chest x-ray: Radiologist's impression: left upper lobe pulmonary nodule 9mm Discharge Plan Discharge Clinical Impression: 2019 novel coronavirus disease (COVID-19) Upper respiratory infection Qualifiers: URI type: unspecified viral URI Qualified Code(s): J06.9 - Acute upper respiratory infection, unspecified Patient Disposition: Home, Self-Care Instructions: COVID-19 (Coronavirus Disease 2019) (ED) Additional Instructions: You have a pulmonary nodule in your left lung, you need another chest xray to make sure that it has gone away in one month Prescriptions: No Action fluconazole 150 mg tablet 150 mg PO DAILY Qty: 1 RF: 0 Referrals: Portia,[facility] [Primary Care Provider] - 2 days (must have repeat chest xray in one month)
[2020-10-27] MEDS: LORazepam 2 MG/ML VIAL 1 MG IM (18:58)
[2020-10-27 19:11] VITALS: BP 109/73; PULSE 98; RESP 20; TEMP 36.6; O2SAT 100
--- NOTE | 2020-10-27 19:37 | PC.NURSE ---
PT REFUSING MEDICATION OFFERED TO HER TO ALLEVIATE SORE THROAT, ESOPHAGEAL DISCOMFORT.
== END 2020-10-27 20:55 | disposition home or self-care (01) ==
PROVIDERS: Emergency Provider Emergency Medicine
DX: U07.1 COVID-19 (principal); J06.9 Acute upper respiratory infection, unspecified; R06.02 Shortness of breath; R05 Cough; Z79.899 Other long term (current) drug therapy
CPT/HCPCS: 71045; 96372; 99284; J2060

== ENCOUNTER 2021-01-10 09:02 | Outpatient (REF) | payer MEDICAID, SELFPAY ==
[2021-01-10 11:45] LABS: HCG Quantitative 840 mIU/mL
== END 2021-01-10 09:03 | disposition home or self-care (01) ==
LOC: HO.LAB 09:02
PROVIDERS: Visit Provider Advanced Practice Midwife
DX: O98.519 Other viral diseases complicating pregnancy, unspecified trimester (principal); O99.519 Diseases of the respiratory system complicating pregnancy, unspecified trimester; O9A.119 Malignant neoplasm complicating pregnancy, unspecified trimester; J45.909 Unspecified asthma, uncomplicated; U07.1 COVID-19; D06.9 Carcinoma in situ of cervix, unspecified; Z87.59 Personal history of other complications of pregnancy, childbirth and the puerperium; Z79.899 Other long term (current) drug therapy
CPT/HCPCS: 36415; 81025; 84702; 99212

== ENCOUNTER 2021-01-12 13:09 | Outpatient (REF) | payer MEDICAID, SELFPAY ==
[2021-01-12 14:24] LABS: HCG Quantitative 2358 mIU/mL
== END 2021-01-12 13:10 | disposition home or self-care (01) ==
LOC: HO.LAB 13:09
PROVIDERS: Visit Provider Advanced Practice Midwife
DX: Z34.90 Encounter for supervision of normal pregnancy, unspecified, unspecified trimester (principal); Z87.59 Personal history of other complications of pregnancy, childbirth and the puerperium
CPT/HCPCS: 36415; 84702

== ENCOUNTER → 2021-01-13 09:35 | Outpatient (BNVA) | payer MEDICAID, SELFPAY | PROVIDERS: Visit Provider Obstetrics & Gynecology | DX: O46.90 Antepartum hemorrhage, unspecified, unspecified trimester (principal); D06.9 Carcinoma in situ of cervix, unspecified; Z87.59 Personal history of other complications of pregnancy, childbirth and the puerperium | CPT/HCPCS: 99212 ==

== ENCOUNTER 2021-01-13 10:54 | Outpatient (REF) | payer MEDICAID, SELFPAY ==
--- NOTE | ~2021-01-13 | US_ITS ---
EXAMINATION: US OBSTETRICAL CLINICAL INFORMATION: Bleeding and cramping COMPARISON: None. LMP: 12/11/2020. Gestational age by maternal dates is 4 weeks 5 days. Estimated date of delivery by maternal dates is 09/17/2021. TECHNIQUE: Transabdominal imaging of the pelvis is performed FINDINGS: There is a single intrauterine gestational sac with visible yolk sac, embryo/fetus, and cardiac activity. There is no significant subchorionic hemorrhage or hematoma. There is an intrauterine gestational sac but no pole or yolk sac seen. No heartbeat seen. The right ovary measures 3.1 x 2.1 x 3.2 cm. There is an anechoic cyst measuring 1.9 x 1.5 x 1.6 cm. The left ovary measures 2.6 x 1.5 x 1.16. It appears unremarkable. There is a small amount of free fluid in the pelvis. US/US OB transvaginal IMPRESSION: 1. Intrauterine gestational sac. No pole, yolk sac, or heart beat seen. 2. There is a simple cyst right ovary.
--- NOTE | ~2021-01-13 | US_ITS ---
EXAMINATION: US OBSTETRICAL CLINICAL INFORMATION: Bleeding and cramping COMPARISON: None. LMP: 12/11/2020. Gestational age by maternal dates is 4 weeks 5 days. Estimated date of delivery by maternal dates is 09/17/2021. TECHNIQUE: Transabdominal imaging of the pelvis is performed FINDINGS: There is a single intrauterine gestational sac with visible yolk sac, embryo/fetus, and cardiac activity. There is no significant subchorionic hemorrhage or hematoma. There is an intrauterine gestational sac but no pole or yolk sac seen. No heartbeat seen. The right ovary measures 3.1 x 2.1 x 3.2 cm. There is an anechoic cyst measuring 1.9 x 1.5 x 1.6 cm. The left ovary measures 2.6 x 1.5 x 1.16. It appears unremarkable. There is a small amount of free fluid in the pelvis. US/US OB <= 14 weeks fetus IMPRESSION: 1. Intrauterine gestational sac. No pole, yolk sac, or heart beat seen. 2. There is a simple cyst right ovary.
== END 2021-01-13 10:55 | disposition home or self-care (01) ==
LOC: HO.US 10:54
PROVIDERS: Visit Provider Obstetrics & Gynecology
DX: O20.9 Hemorrhage in early pregnancy, unspecified (principal); Z87.59 Personal history of other complications of pregnancy, childbirth and the puerperium
CPT/HCPCS: 76801; 76817

== ENCOUNTER 2021-01-19 05:41 | Emergency (ER) | payer MEDICAID, SELFPAY ==
--- NOTE | ~2021-01-19 | US_ITS ---
EXAMINATION: ULTRASOUND OB PELVIS AND TRANSVAGINAL CLINICAL INFORMATION: Vagina spotting pulmonary pain COMPARISON: Ultrasound OB 01/14/2021 TECHNIQUE: Transabdominal ultrasound pelvis is performed FINDINGS: There is intrauterine gestational sac with no pole seen at. There is no motion or heart rate either. The right ovary measures 2.8 a 2.0 x 2.9 cm. There is a corpus luteal cyst measuring 2.3 x 1.7 x 2.0 cm. The left ovary measures 2.5 x 1.3 x 2.0 cm. There is trace free fluid in the pelvis. US/US OB pelvic and transvaginal IMPRESSION: Intrauterine gestational sac without a pole, motion or heart beat. The yolk sac is seen at this time. No change compared to previous study 01/06/2021 except for a yolk sac seen at this time it
[2021-01-19 06:10] VITALS: BP 129/78; PULSE 100; RESP 22; TEMP 36.7; O2SAT 98; BMI 23.8
--- NOTE | 2021-01-19 06:33 | ED.ABDPAIN ---
HPI - Abdominal Pain General Chief Complaint: Abdominal Pain Stated Complaint: abd pain Time Seen by Provider: 01/19/21 06:33 Source: patient and old records reviewed Mode of arrival: ambulatory Limitations: no limitations History of Present Illness HPI narrative: 25 yo female G3 2 prior miscarriages - here with cramping and brown spotting x 3 days, just had US on 01/13 to early to confirm LMP 12/11/20 MD elicited complaint: abdominal pain Pertinent past history: other (2 prior miscarriages) Onset (ago): day(s) (3) Pain Consistency: intermittent Location: pelvis Severity: moderate Quality: cramping Radiation: none Migration to: no migration Exacerbating factors: nothing Relieving factors: nothing Context: other () Associated symptoms: nausea and other (brown vaginal dischrge) Treatments prior to arrival: other (tried a heating pad) Related Data Home Medications Medication Instructions Recorded Confirmed levetiracetam 750 mg tablet 750 mg PO BID 01/10/21 01/10/21 omeprazole 20 mg capsule,delayed 20 mg PO DAILY 01/10/21 01/10/21 release Previous Rx's Medication Instructions Recorded fluconazole 150 mg tablet 150 mg PO DAILY #1 tab 09/20/20 Allergies Allergy/AdvReac Type Severity Reaction Status Date / Time haloperidol [From HALDOL] Allergy Intermediate TACHYCARDIA Verified 01/13/21 09:43 FROM IV ROUTE, tachycardia metoclopramide [From REGLAN] Allergy Unknown LIKE I'M Verified 01/13/21 09:43 GOING TO JUMP OUT OF MY SKIN , Feels like im going to jump out of my skin. SEASONAL ALLERGIES Allergy Unknown ITCHY./WATER Uncoded 01/10/21 09:07 EYES Review of Systems Review of Systems Constitutional : No Fever, No Chills ENT/Mouth : No sore throat, No Rhinorrhea Eyes: No Eye Pain, No Redness Cardiovascular : No Chest Pain, No SOB Respiratory : No Cough, No Sputum, No Wheezing Gastrointestinal : positive Nausea, No Vomiting, No Diarrhea, positive abdominal pain, Genitourinary : positive irregular bleeding, No Dysuria, No Urinary Frequency, positive pelvic pain Musculoskeletal : No Myalgias Skin : No rash Neuro : No Weakness, No Headache Psych : No Anxiety/Panic, No Depression Heme/Lymph: No bruising, No Lymphadenopathy Endocrine : No Polyuria, No Polydipsia All other systems reviewed and are negative Physical Exam Vital Signs: Vital Signs: Last Vital Signs Temp 98.0 F 01/19/21 06:10 Pulse 75 01/19/21 11:03 Resp 18 01/19/21 11:03 BP 112/68 01/19/21 11:03 Pulse Ox 100 01/19/21 11:03 Body Mass Index 23.8 Appearance: Alert. Oriented X3. No acute distress. Tearful anxious Eyes: Pupils equal, round and reactive to light. ENT: Pharynx normal. Neck: Normal inspection. Neck supple. CVS: Normal heart rate and rhythm. Pulses normal. Respiratory: No respiratory distress. Breath sounds normal. Abdomen: Soft and moderate difffuse ttp, no rebound or guarding : slight brown discharge, no ttp, os closed Skin: Skin warm and dry. Normal skin color. Normal skin turgor. Extremities: No lower extremity edema. No calf ttp Neuro: Oriented X 3. No motor deficit. No sensory deficit. Course Course Course Narrative: call to Dr. Chong [id number] repeat US in 11 days, US seems consistent with IUP, follow up outpatient MDM - Abdominal Pain MDM Narrative Medical decision making narrative: 25 yo female G3 2 prior miscarriages here with a few days of cramping and brown discharge - at this time labs, STI panel, UA, hcg and US to confirm , IVF and tylenol - dispo per results and findings. Differential Diagnosis Differential diagnosis: Likely abdominal pain and ovarian cyst; Unlikely acute appendicitis Lab Data Result diagrams: 01/19/21 07:18 01/19/21 07:18 Labs: Lab Results 01/19/21 01/19/21 01/19/21 Range/Units 07:17 07:18 07:18 WBC 9.9 (4.8-10.8) X10*3/uL RBC 4.34 (4.20-5.50) X10*6/uL Hgb 14.1 (12.0-16.0) g/dl Hct 41.4 (37-47) % MCV 95.4 (80-98) fL MCH 32.5 (27.0-33.0) pg MCHC 34.1 (31.0-35.0) g/dl RDW 12.4 (11.0-16.0) % Plt Count 279 (160-400) X10*3/uL MPV 8.7 L (9.4-12.3) fL Immature Gran % (Auto) 0.2 (0.0-0.4) % Neut % (Auto) 77.7 H (45-73) % Lymph % (Auto) 15.2 L (20-40) % [place] % (Auto) 5.3 (2-11) % Eos % (Auto) 0.7 (0-4) % Baso % (Auto) 0.9 (0-2) % Lymph # (Auto) 1.5 (1.2-4.9) X10*3/uL [place] # (Auto) 0.5 (0.1-1.2) X10*3/uL Eos # (Auto) 0.1 (0.0-0.4) X10*3/uL Baso # (Auto) 0.1 (0.0-0.2) X10*3/uL Abs Immat Gran (auto) 0.02 (0.00-0.03) X10*3/uL Absolute Neuts (auto) 7.7 (2.0-8.3) X10*3/uL Absolute Nucleated RBC 0.000 (0.0-0.012) X10*3/uL Nucleated RBC % (auto) 0.0 (0.0-0.2) /100WBC Sodium 138 (135-145) mmol/L Potassium 4.3 (3.3-5.1) mmol/L Chloride 105 (96-108) mmol/L Carbon Dioxide 22 (22-29) mmol/L Anion Gap 15 (12-20) BUN 6 L (9-16) mg/dL Creatinine 0.69 (0.5-1.4) mg/dL Estim Creat Clear Calc 99.4 Estimated GFR > 60 Random Glucose 89 (60-115) mg/dL Calcium 9.4 D (8.4-10.2) mg/dL Beta HCG, Quant 82832 mIU/mL Urine Color Urine Appearance Urine pH (5.0-8.0) Ur Specific [place] (1.005-1.025) Urine Protein (NEG-TRACE) MG/DL Urine Glucose (UA) (NEG) MG/DL Urine Ketones (NEG) MG/DL Urine Blood (NEG) Urine Nitrite (NEG) Ur Leukocyte Esterase (NEG) Blood Type A Positive 01/19/21 Range/Units 10:29 WBC (4.8-10.8) X10*3/uL RBC (4.20-5.50) X10*6/uL Hgb (12.0-16.0) g/dl Hct (37-47) % MCV (80-98) fL MCH (27.0-33.0) pg MCHC (31.0-35.0) g/dl RDW (11.0-16.0) % Plt Count (160-400) X10*3/uL MPV (9.4-12.3) fL Immature Gran % (Auto) (0.0-0.4) % Neut % (Auto) (45-73) % Lymph % (Auto) (20-40) % [place] % (Auto) (2-11) % Eos % (Auto) (0-4) % Baso % (Auto) (0-2) % Lymph # (Auto) (1.2-4.9) X10*3/uL [place] # (Auto) (0.1-1.2) X10*3/uL Eos # (Auto) (0.0-0.4) X10*3/uL Baso # (Auto) (0.0-0.2) X10*3/uL Abs Immat Gran (auto) (0.00-0.03) X10*3/uL Absolute Neuts (auto) (2.0-8.3) X10*3/uL Absolute Nucleated RBC (0.0-0.012) X10*3/uL Nucleated RBC % (auto) (0.0-0.2) /100WBC Sodium (135-145) mmol/L Potassium (3.3-5.1) mmol/L Chloride (96-108) mmol/L Carbon Dioxide (22-29) mmol/L Anion Gap (12-20) BUN (9-16) mg/dL Creatinine (0.5-1.4) mg/dL Estim Creat Clear Calc Estimated GFR Random Glucose (60-115) mg/dL Calcium (8.4-10.2) mg/dL Beta HCG, Quant mIU/mL Urine Color YELLOW Urine Appearance CLEAR Urine pH 7.0 (5.0-8.0) Ur Specific [place] 1.020 (1.005-1.025) Urine Protein NEG (NEG-TRACE) MG/DL Urine Glucose (UA) NEG (NEG) MG/DL Urine Ketones >=80 (NEG) MG/DL Urine Blood NEG (NEG) Urine Nitrite NEG (NEG) Ur Leukocyte Esterase NEG (NEG) Blood Type Discharge Plan Discharge Clinical Impression: Abdominal pain Qualifiers: Abdominal location: lower abdomen, unspecified Qualified Code(s): R10.30 - Lower abdominal pain, unspecified Qualifiers: Weeks of gestation: less than 8 weeks Qualified Code(s): Z3A.01 - Less than 8 weeks gestation of Patient Disposition: Home, Self-Care Instructions: Abdominal Pain in (ED) Additional Instructions: return to ED for any worsening symptoms or concerns come back for severe pain, bleeding, or any other concerns drink water, tylenol is safe in , benadryl 25mg every 8 hours for anxiety is safe as well call OB repeat testing in 1 week Prescriptions: No Action fluconazole 150 mg tablet 150 mg PO DAILY Qty: 1 RF: 0 omeprazole 20 mg capsule,delayed release(DR/EC) 20 mg PO DAILY RF: 0 levetiracetam 750 mg tablet 750 mg PO BID RF: 0 Referrals: Kari Storm MD [Physician] - 10 days Stand Alone Forms: Work/School Release [facility] Past Medical History Attestation statement: The following information was validated with the patient. Medical History Anxiety Asthma VENUS III (cervical intraepithelial neoplasia grade III) with severe dysplasia Epilepsia Gastritis Stomach ulcer Social History Social History Alcohol intake: unknown Advance Directives: No Advance Directives Information Provided: No Patient : Yes
--- NOTE | 2021-01-19 06:39 | PC.NURSE ---
PT IS IN ROOM YELLING AT NURSE MY BLANKETS ARE NOT WARM ENOUGH, CANT YOU GIVE ME HOT BLANKETS? WHAT GOOD ARE YOU PEOPLE YOUR SUPPOSED TO BE HELPING ME PT IS IN BATHROOM YELLING IM NAUSEATED AND NO ONE IS HLEPING ME PT IS ON THE PHONE SAYING NO ONE CARES ABOUT ME HERE, IM IN PAIN AND CAN'T GET A HOT PACK .
[2021-01-19] MEDS: Acetaminophen 325 MG TABLET 650 MG PO (07:12)
[2021-01-19] MEDS: 0.9 % Sodium Chloride 1,000 ML 999 ML IVCONT (07:14)
--- NOTE | 2021-01-19 07:25 | PC.NURSE ---
IV placed to the right AC. Pt given po tylenol for cramping and IVF. Pt c/o nausea and anxiety. MD aware. Plan to order medications. Pt aware that we are awaiting Ultrasound at this time.
[2021-01-19 07:28] LABS: MANUAL DIFF FLAG NO
[2021-01-19 07:37] LABS: Basophils Absolute Auto 0.1 X10*3/uL (0.0-0.2); Basophils Percent Auto 0.9 % (0-2); Eosinophils Absolute Auto 0.1 X10*3/uL (0.0-0.4); Eosinophils Percent Auto 0.7 % (0-4); Hematocrit 41.4 % (37-47); Hemoglobin 14.1 g/dl (12.0-16.0); Imm Gran Abs Auto 0.02 X10*3/uL (0.00-0.03); Imm Gran Pct Auto 0.2 % (0.0-0.4); Lymphocytes Absolute Auto 1.5 X10*3/uL (1.2-4.9); Lymphocytes Percent Auto 15.2 % (20-40); Mean Corpuscular HGB Conc 34.1 g/dl (31.0-35.0); Mean Corpuscular Hemoglobin 32.5 pg (27.0-33.0); Mean Corpuscular Volume 95.4 fL (80-98); Mean Platelet Volume 8.7 fL (9.4-12.3); Monocytes Absolute Auto 0.5 X10*3/uL (0.1-1.2); Monocytes Percent Auto 5.3 % (2-11); Neutrophils Absolute Auto 7.7 X10*3/uL (2.0-8.3); Neutrophils Percent Auto 77.7 % (45-73); Platelet Count 279 X10*3/uL (160-400); Red Blood Count 4.34 X10*6/uL (4.20-5.50); Red Cell Distribution Width 12.4 % (11.0-16.0); White Blood Count 9.9 X10*3/uL (4.8-10.8)
[2021-01-19] MEDS: ondansetron HCL 4 MG/2 ML VIAL IVPUSH (07:43)
[2021-01-19] MEDS: diphenhydrAMINE HCL 50 MG/ML VIAL 25 MG IVPUSH (07:44)
[2021-01-19 08:07] LABS: Anion Gap 15 (12-20); Blood Urea Nitrogen 6 mg/dL (9-16); Calcium 9.4 mg/dL (8.4-10.2); Carbon Dioxide 22 mmol/L (22-29); Chloride 105 mmol/L (96-108); Creatinine Clr Calc Pharmacy 99.4; Estimated Glomerular Filt Rate > 60; Glucose Random 89 mg/dL (60-115); Potassium 4.3 mmol/L (3.3-5.1); Sodium 138 mmol/L (135-145)
[2021-01-19 08:37] LABS: HCG Quantitative 27131 mIU/mL
--- NOTE | 2021-01-19 09:41 | PC.NURSE ---
Pt states that her cramping has subsided at this time. She appears to be in no distress. She was informed of the need for a urine sample and supplies given. Pt aware we are awaiting ultrasound at this time.
[2021-01-19 10:50] LABS: Glucose Urine UA NEG (NEG); Leukocyte Esterase Urine NEG (NEG); Nitrite Urine NEG (NEG); Urine Blood NEG (NEG); Urine Ketones >=80 MG/DL (NEG); Urine Protein NEG (NEG-TRACE)
[2021-01-19 10:55] LABS: Appearance Urine CLEAR; Color Urine YELLOW
[2021-01-19 11:03] VITALS: BP 112/68; PULSE 75; RESP 18; O2SAT 100
--- NOTE | 2021-01-19 11:04 | PC.NURSE ---
Pelvic exam done by .Cultures obtained and sent to lab.
[2021-01-19 12:45] LABS: CT PCR NOT DETECTED (Not Detect.); NG PCR NOT DETECTED (Not Detect.)
== END 2021-01-19 12:01 | disposition home or self-care (01) ==
PROVIDERS: Emergency Provider Emergency Medicine
DX: O26.891 Other specified pregnancy related conditions, first trimester (principal); R10.30 Lower abdominal pain, unspecified; O21.8 Other vomiting complicating pregnancy; O34.81 Maternal care for other abnormalities of pelvic organs, first trimester; N83.11 Corpus luteum cyst of right ovary; Z3A.01 Less than 8 weeks gestation of pregnancy
CPT/HCPCS: 36415; 76801; 76817; 80048; 81003; 84702; 85025; 86900; 86901; 87491; 87591; 96361; 96374; 96375; 99284; J1200; J2405

== ENCOUNTER → 2021-01-24 11:26 | Outpatient (BNVA) | payer MEDICAID, SELFPAY | PROVIDERS: Visit Provider Obstetrics & Gynecology ==

== ENCOUNTER 2021-01-27 09:46 | Outpatient (REF) | payer MEDICAID, SELFPAY ==
--- NOTE | ~2021-01-27 | US_ITS ---
EXAMINATION: US OBSTETRICAL ULTRASOUND CLINICAL INFORMATION: Check viability COMPARISON: Previous exams most recent 01/19/2021. LMP: 12/11/2020. Estimated date of delivery by maternal dates is 09/17/2021 . TECHNIQUE: Transabdominal first trimester OB ultrasound FINDINGS: There is a single intrauterine gestational sac with visible yolk sac, embryo/fetus, and cardiac activity. There is no significant subchorionic hemorrhage or hematoma. HR: 118 beats per minute. CRL (crown rump length): 0.44 cm (6 weeks 1 day +/- 4 days). ISIAH (estimated date of delivery): 09/21/2021 +/- 4 days. MATERNAL ADNEXA: The right maternal ovary measures 3 x 2.1 x 1.7 cm. There is a 1.1 x 0.8 x 1 cm cyst. The left maternal ovary measures 2.5 x 2 x 1.5 cm. There is trace ascites. US/US OB <= 14 weeks fetus IMPRESSION: 1. Single intrauterine gestation with ultrasound gestational age of 6 weeks 1 day +/- 4 days. 2. Estimated date of delivery is 09/21/2021 +/- 4 days.
== END 2021-01-27 09:47 | disposition home or self-care (01) ==
LOC: HO.US 09:46
PROVIDERS: Visit Provider Obstetrics & Gynecology
DX: O36.80X0 Pregnancy with inconclusive fetal viability, not applicable or unspecified (principal); Z3A.01 Less than 8 weeks gestation of pregnancy
CPT/HCPCS: 76801

== ENCOUNTER → 2021-01-28 11:20 | Outpatient (BNVA) | payer MEDICAID, SELFPAY | PROVIDERS: Visit Provider Obstetrics & Gynecology ==

== ENCOUNTER 2021-02-02 16:26 | Emergency (ER) | payer MEDICAID, SELFPAY ==
[2021-02-02 16:32] VITALS: BP 140/84; PULSE 101; RESP 20; TEMP 36.1; O2SAT 100; BMI 23.8
--- NOTE | 2021-02-02 17:56 | ED.SOB ---
HPI - SOB/Dyspnea General Chief Complaint: Dyspnea Stated Complaint: sob Source: patient Mode of arrival: ambulatory Limitations: no limitations History of Present Illness HPI Narrative: 25-year-old female 7 weeks presents with upper respiratory symptoms, shortness of breath, sore throat, nausea, vomiting, and chest pressure. States that she feels sick and anxious, but did not report fevers, chills, palpitations, abdominal pain, abdominal distention, dysuria, hematuria, edema, or any other concerning symptoms. MD elicited complaint: shortness of breath and anxiety Onset (ago): day(s) Timing: intermittent Severity: moderate Exacerbating factors: lying flat and stress Relieving factors: rest Associated symptoms: denies other symptoms Treatment prior to arrival: none Related Data Home Medications Medication Instructions Recorded Confirmed levetiracetam 750 mg tablet 750 mg PO BID 01/10/21 01/10/21 omeprazole 20 mg capsule,delayed 20 mg PO DAILY 01/10/21 01/10/21 release Previous Rx's Medication Instructions Recorded fluconazole 150 mg tablet 150 mg PO DAILY #1 tab 09/20/20 doxylamine succinate 25 mg tablet 25 mg PO BEDTIME PRN #30 tab 01/24/21 famotidine 20 mg tablet 20 mg PO BID #60 tab 01/24/21 ondansetron 8 mg disintegrating 8 mg PO Q8H PRN #90 tab 01/24/21 tablet pyridoxine (vitamin B6) 25 mg 25 mg PO TID #90 tab 01/24/21 tablet Allergies Allergy/AdvReac Type Severity Reaction Status Date / Time haloperidol [From HALDOL] Allergy Intermediate TACHYCARDIA Verified 01/24/21 11:27 FROM IV ROUTE, tachycardia metoclopramide [From REGLAN] Allergy Unknown LIKE I'M Verified 01/24/21 11:27 GOING TO JUMP OUT OF MY SKIN , Feels like im going to jump out of my skin. SEASONAL ALLERGIES Allergy Unknown ITCHY./WATER Uncoded 01/10/21 09:07 EYES Review of Systems Review of Systems: Constitutional: No Weight loss, No Fever, No Chills, No Night Sweats, No Fatigue, No Malaise ENT/Mouth: No Hearing loss, No Ear Pain, No Nasal Congestion, No Sinus Pain, No Hoarseness, positive sore throat, No Rhinorrhea, No Swallowing Difficulty Eyes: No Eye Pain, No Swelling, No Redness, No Foreign Body, No Discharge, No Vision Changes Cardiovascular: Positive chest pressure, No Chest Pain, positive SOB, No Dyspnea on Exertion, No Orthopnea, No Edema, No Palpitations Respiratory: No Cough, No Sputum, No Wheezing, No Smoke Exposure, No Dyspnea Gastrointestinal: Positive Nausea, Positive Vomiting, no Diarrhea, no abdominal Pain, No Hematochezia, No Melena Genitourinary: no irregular bleeding, No Dysuria, No Urinary Frequency, No Hematuria, No Urinary Incontinence, No Urgency, No Flank Pain, No Urinary Flow Changes, No Hesitancy Musculoskeletal: No joint pain, No Myalgias, No Joint Swelling Skin: No Skin Lesions, No rash Neuro: No Weakness, No Numbness, No Paresthesias, No Loss of Consciousness, No Dizziness, No Headache Psych: Positive anxiety, No Panic, No Depression, No SI/HI/AH/VH, No Social Issues Heme/Lymph: No Bruising, No Bleeding,No Lymphadenopathy Endocrine: No Polyuria, No Polydipsia, No Temperature Intolerance Yes all other systems are reviewed and are negative [facility] Past Medical History Attestation statement: The following information was validated with the patient. Source: old records reviewed Medical History Anxiety Asthma VENUS III (cervical intraepithelial neoplasia grade III) with severe dysplasia Epilepsia Gastritis Stomach ulcer Social History Social History Alcohol intake: unknown Advance Directives: No Advance Directives Information Provided: Yes Patient : Yes Physical Exam Vital Signs: Vital Signs: Last Vital Signs Temp 99.2 F 02/02/21 18:40 Pulse 101 H 02/02/21 18:40 Resp 22 H 02/02/21 18:40 BP 137/80 02/02/21 18:40 Pulse Ox 100 02/02/21 18:40 Body Mass Index 23.8 Appearance: Alert. Oriented X3. No acute distress. Eyes: Pupils equal, round and reactive to light. ENT: Pharynx normal. Neck: Normal inspection. Neck supple. CVS: Normal heart rate and rhythm. Pulses normal. Respiratory: No respiratory distress. Breath sounds normal. Abdomen: Soft and nontender. Skin: Skin warm and dry. Normal skin color. Normal skin turgor. Extremities: No lower extremity edema. Neuro: No motor deficit. No sensory deficit. Course Course Course Narrative: 25-year-old female with past medical history seizure disorder, anxiety, COVID positive in october, 7 weeks presents with shortness of breath, chest pressure, anxiety, nausea, vomiting, and sore throat. States that she has been using her inhalers with poor effect. At this time we will order CBC, Chem 7, give a L of fluid, some Zofran. Patient is tachycardic at 100, respiration rate is 20 upon triage, however during my discussion patient is speaking in complete sentences, appears nervous, respiration rate 16 even unlabored. While PE is on this differential list, it is highly unlikely based on her O2 sat at 100%, even unlabored respirations, no pain on inspiration, no dyspnea on exertion. Symptoms more likely caused by anxiety, possible dehydration with nausea and vomiting related to 1st trimester . Patient left without completing treatment, stated that she was dissatisfied with time of care at this facility. MDM - SOB/Dyspnea Lab Data Result diagrams: 02/02/21 17:53 02/02/21 17:53 Labs: Lab Results 02/02/21 02/02/21 02/02/21 Range/Units 17:53 17:53 17:57 WBC 13.1 H (4.8-10.8) X10*3/uL RBC 4.29 (4.20-5.50) X10*6/uL Hgb 14.2 (12.0-16.0) g/dl Hct 41.2 (37-47) % MCV 96.0 (80-98) fL MCH 33.1 H (27.0-33.0) pg MCHC 34.5 (31.0-35.0) g/dl RDW 12.5 (11.0-16.0) % Plt Count 265 (160-400) X10*3/uL MPV 8.6 L (9.4-12.3) fL Immature Gran % (Auto) 0.2 (0.0-0.4) % Neut % (Auto) 71.3 (45-73) % Lymph % (Auto) 19.1 L (20-40) % Tyrrell % (Auto) 7.8 (2-11) % Eos % (Auto) 0.8 (0-4) % Baso % (Auto) 0.8 (0-2) % Lymph # (Auto) 2.5 (1.2-4.9) X10*3/uL Tyrrell # (Auto) 1.0 (0.1-1.2) X10*3/uL Eos # (Auto) 0.1 (0.0-0.4) X10*3/uL Baso # (Auto) 0.1 (0.0-0.2) X10*3/uL Abs Immat Gran (auto) 0.03 (0.00-0.03) X10*3/uL Absolute Neuts (auto) 9.3 H (2.0-8.3) X10*3/uL Absolute Nucleated RBC 0.000 (0.0-0.012) X10*3/uL Nucleated RBC % (auto) 0.0 (0.0-0.2) /100WBC Sodium 137 (135-145) mmol/L Potassium 3.7 (3.3-5.1) mmol/L Chloride 103 (96-108) mmol/L Carbon Dioxide 26 (22-29) mmol/L Anion Gap 12 (12-20) BUN 6 L (9-16) mg/dL Creatinine 0.66 (0.5-1.4) mg/dL Estim Creat Clear Calc 103.9 Estimated GFR > 60 Random Glucose 75 (60-115) mg/dL Calcium 9.5 (8.4-10.2) mg/dL S. pyogenes GrpA ODIN Negative (Negative) Discharge Plan Discharge Patient Disposition: Left Against Medical Advice Prescriptions: No Action pyridoxine (vitamin B6) [Vitamin B-6] 25 mg tablet 25 mg PO TID Qty: 90 RF: 3 doxylamine succinate 25 mg tablet 25 mg PO BEDTIME PRN (Reason: sleep) Qty: 30 RF: 3 ondansetron 8 mg tablet,disintegrating 8 mg PO Q8H PRN (Reason: nausea and vomiting) Qty: 90 RF: 3 famotidine [Acid Quality Audit Representative (famotidine)] 20 mg tablet 20 mg PO BID Qty: 60 RF: 3 fluconazole 150 mg tablet 150 mg PO DAILY Qty: 1 RF: 0 omeprazole 20 mg capsule,delayed release(DR/EC) 20 mg PO DAILY RF: 0 levetiracetam 750 mg tablet 750 mg PO BID RF: 0 Interventions: ED Discharge Assessment Last Done: 02/02/21 19:10 Discharge Date/Time: 02/02/21 19:11
[2021-02-02 17:57] LABS: MANUAL DIFF FLAG NO
[2021-02-02 18:00] LABS: Basophils Absolute Auto 0.1 X10*3/uL (0.0-0.2); Basophils Percent Auto 0.8 % (0-2); Eosinophils Absolute Auto 0.1 X10*3/uL (0.0-0.4); Eosinophils Percent Auto 0.8 % (0-4); Hematocrit 41.2 % (37-47); Hemoglobin 14.2 g/dl (12.0-16.0); Imm Gran Abs Auto 0.03 X10*3/uL (0.00-0.03); Imm Gran Pct Auto 0.2 % (0.0-0.4); Lymphocytes Absolute Auto 2.5 X10*3/uL (1.2-4.9); Lymphocytes Percent Auto 19.1 % (20-40); Mean Corpuscular HGB Conc 34.5 g/dl (31.0-35.0); Mean Corpuscular Hemoglobin 33.1 pg (27.0-33.0); Mean Platelet Volume 8.6 fL (9.4-12.3); Monocytes Percent Auto 7.8 % (2-11); Neutrophils Absolute Auto 9.3 X10*3/uL (2.0-8.3); Neutrophils Percent Auto 71.3 % (45-73); Platelet Count 265 X10*3/uL (160-400); Red Blood Count 4.29 X10*6/uL (4.20-5.50); Red Cell Distribution Width 12.5 % (11.0-16.0); White Blood Count 13.1 X10*3/uL (4.8-10.8)
[2021-02-02 18:19] LABS: Anion Gap 12 (12-20); Blood Urea Nitrogen 6 mg/dL (9-16); Calcium 9.5 mg/dL (8.4-10.2); Carbon Dioxide 26 mmol/L (22-29); Chloride 103 mmol/L (96-108); Creatinine Clr Calc Pharmacy 103.9; Estimated Glomerular Filt Rate > 60; Glucose Random 75 mg/dL (60-115); Potassium 3.7 mmol/L (3.3-5.1); Sodium 137 mmol/L (135-145)
[2021-02-02 18:20] LABS: IDNOW Serial# 08D9AD1C; Strep A Nucleic Acid Negative (Negative)
[2021-02-02 18:40] VITALS: BP 137/80; PULSE 101; RESP 22; TEMP 37.3; O2SAT 100
--- NOTE | 2021-02-02 19:04 | PC.NURSE ---
PT REFUSING TREATMENT WHEN THIS RN APPROACHED WITH FLUIDS AND ZOFRAN, LEFT AMA WITHOUT REFUSING TO SIGN PAPERWORK I THINK I'D RATHER JUST WASTE MY TIME AT [facility] . STEAM BLOCKER AWARE.
== END 2021-02-02 19:11 | disposition left against medical advice (07) ==
PROVIDERS: Nurse Practitioner Family; Emergency Provider Emergency Medicine Emergency Medical Services
DX: O26.891 Other specified pregnancy related conditions, first trimester (principal); R06.02 Shortness of breath; O99.511 Diseases of the respiratory system complicating pregnancy, first trimester; J02.9 Acute pharyngitis, unspecified; Z3A.01 Less than 8 weeks gestation of pregnancy; Z86.16 Personal history of COVID-19
CPT/HCPCS: 36415; 80048; 85025; 87651; 96361; 96374; 99283

== ENCOUNTER → 2021-02-04 11:23 | Outpatient (BNVA) | payer MEDICAID, SELFPAY | PROVIDERS: Visit Provider Obstetrics & Gynecology | DX: O26.891 Other specified pregnancy related conditions, first trimester (principal); K59.01 Slow transit constipation | CPT/HCPCS: 99212 ==

== ENCOUNTER 2021-02-09 08:34 | Emergency (ER) | payer MEDICAID, SELFPAY ==
--- NOTE | ~2021-02-09 | US_ITS ---
EXAMINATION: US ABDOMEN COMPLETE CLINICAL INFORMATION: Abdominal pain. COMPARISON: Previous abdominal ultrasound May [address] of the abdomen and pelvis May 2020 TECHNIQUE: Real-time imaging of the abdominal viscera. FINDINGS: PANCREAS: Normal. ABDOMINAL AORTA: The proximal, mid, and distal segments are normal in caliber. INFERIOR VENA CAVA: Visualized portions are normal. LIVER: Normal. The liver is normal in size. The liver contour is normal. Parenchymal echogenicity is normal. No focal hepatic lesion. There is no intrahepatic biliary duct dilatation seen. GALLBLADDER: There is a 6 x 3 mm echogenic density adjacent to the gallbladder wall that does not move or shadow questionable for a small polyp. No gallstones are seen. The gallbladder wall does not appear thickened. There is no pericholecystic fluid. COMMON BILE DUCT: Normal in caliber measuring 0.3 cm in diameter. RIGHT KIDNEY: Normal. No hydronephrosis. No renal calculi or focal parenchymal lesions. The kidney measures 10.7 cm in maximum dimension. LEFT KIDNEY: Normal. No hydronephrosis. No renal calculi or focal parenchymal lesions. The kidney measures 10.5 cm in maximum dimension. SPLEEN: Normal. The spleen measures 7.5 cm in maximum dimension. FREE FLUID: None. US/US abdomen complete IMPRESSION: Question small gallbladder wall polyp otherwise unremarkable exam.
--- NOTE | ~2021-02-09 | US_ITS ---
EXAMINATION: US OBSTETRICAL ULTRASOUND CLINICAL INFORMATION: Abdominal pain COMPARISON: Previous exam most recent 01/27/2021. LMP: 12/15/2020. Gestational age by maternal dates is 8 weeks 0 days. Estimated date of delivery by maternal dates is 09/21/2021. TECHNIQUE: Transabdominal first trimester OB ultrasound FINDINGS: There is a single intrauterine gestational sac with visible yolk sac, embryo/fetus, and cardiac activity. There is no significant subchorionic hemorrhage or hematoma. HR: 160 beats per minute. CRL (crown rump length): 1.8 cm (8 weeks 2 days +/- 4 days). ISIAH (estimated date of delivery): 09/19/2021 +/- 4 days. MATERNAL ADNEXA: The right maternal ovary measures 3.3 x 2.2 x 1.6 cm. The left maternal ovary is not seen. There is no significant maternal adnexal mass. No maternal pelvic ascites. US/US OB <= 14 weeks fetus IMPRESSION: 1. Single intrauterine gestation with ultrasound gestational age of 8 weeks 2 days +/- 4 days. 2. Estimated date of delivery is 09/19/2021 +/- 4 days. 3. No maternal adnexal mass or pelvic ascites.
[2021-02-09 08:43] VITALS: BP 103/63; PULSE 90; RESP 18; TEMP 36.5; O2SAT 100; BMI 22.0
[2021-02-09] MEDS: ondansetron HCL 4 MG/2 ML VIAL IVPUSH (09:19)
[2021-02-09] MEDS: 0.9 % Sodium Chloride 1,000 ML 999 ML IVCONT ×2 (09:19→12:07)
[2021-02-09] MEDS: Acetaminophen 325 MG TABLET 975 MG PO (09:21)
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
[2021-02-09 09:50] LABS: MANUAL DIFF FLAG NO
[2021-02-09 10:01] LABS: Basophils Absolute Auto 0.1 X10*3/uL (0.0-0.2); Basophils Percent Auto 0.7 % (0-2); Eosinophils Percent Auto 0.2 % (0-4); Hematocrit 39.7 % (37-47); Hemoglobin 13.6 g/dl (12.0-16.0); Imm Gran Abs Auto 0.04 X10*3/uL (0.00-0.03); Imm Gran Pct Auto 0.4 % (0.0-0.4); Lymphocytes Absolute Auto 1.4 X10*3/uL (1.2-4.9); Lymphocytes Percent Auto 14.1 % (20-40); Mean Corpuscular HGB Conc 34.3 g/dl (31.0-35.0); Mean Corpuscular Hemoglobin 32.8 pg (27.0-33.0); Mean Corpuscular Volume 95.7 fL (80-98); Mean Platelet Volume 8.7 fL (9.4-12.3); Monocytes Absolute Auto 0.6 X10*3/uL (0.1-1.2); Monocytes Percent Auto 5.5 % (2-11); Neutrophils Absolute Auto 7.8 X10*3/uL (2.0-8.3); Neutrophils Percent Auto 79.1 % (45-73); Platelet Count 271 X10*3/uL (160-400); Red Blood Count 4.15 X10*6/uL (4.20-5.50); White Blood Count 9.9 X10*3/uL (4.8-10.8)
[2021-02-09 10:07] LABS: INTERNATIONAL NORM RATIO 1.2 (0.9-1.1); Prothrombin Time 14.2 SEC (10.8-13.0)
[2021-02-09] MEDS: diphenhydrAMINE HCL 50 MG/ML VIAL 25 MG IVPUSH ×2 (10:36→13:14)
[2021-02-09 10:38] LABS: Alanine Aminotransferase 13 U/L (0-31); Albumin Level 4.2 g/dL (3.5-5.0); Alkaline Phosphatase 29 U/L (39-117); Anion Gap 13 (12-20); Aspartate Amino Transferase 17 U/L (5-31); Bilirubin Total 0.6 mg/dL (0.0-1.0); Blood Urea Nitrogen 5 mg/dL (9-16); Carbon Dioxide 21 mmol/L (22-29); Chloride 107 mmol/L (96-108); Creatinine Clr Calc Pharmacy 110.6; Estimated Glomerular Filt Rate > 60; Glucose Random 80 mg/dL (60-115); Lipase 31 U/L (8-78); Magnesium 1.8 mg/dL (1.6-2.6); Potassium 4.2 mmol/L (3.3-5.1); Sodium 137 mmol/L (135-145); Total Protein 6.5 g/dL (6.5-8.0)
[2021-02-09 12:04] VITALS: BP 110/62; PULSE 77; RESP 16; O2SAT 100
--- NOTE | 2021-02-09 12:04 | PC.NURSE ---
PT REPORTING ONGOING NAUSEA, DIZZY WHEN SHE GOT UP TO USE BATHROOM. UPPER ABD PAIN, REPORTS 3 EPISODES OF VOMITING SINCE ARRIVAL TO ED. IVF STILL RUNNING.
[2021-02-09 12:16] LABS: Glucose Urine UA NEG (NEG); Leukocyte Esterase Urine NEG (NEG); Nitrite Urine NEG (NEG); Specific Gravity - Urine >= 1.030 (1.005-1.025); Urine Blood NEG (NEG); Urine Ketones >=80 MG/DL (NEG); Urine Protein NEG (NEG-TRACE)
[2021-02-09 12:17] LABS: Appearance Urine CLOUDY; Color Urine YELLOW
[2021-02-09] MEDS: Prochlorperazine Edisylate 10 MG/2 ML VIAL IVPUSH (12:28)
[2021-02-09] MEDS: levETIRAcetam 750 MG in 0.9 % Sodium Chloride 100 ML 400 MG IV (13:03)
[2021-02-09] MEDS: LORazepam 2 MG/ML VIAL 1 MG IVPUSH (13:14)
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
[2021-02-09 14:40] VITALS: BP 108/55; PULSE 60; RESP 15; TEMP 37.2; O2SAT 98
[2021-02-13 07:02] LABS: Levetiracetam Keppra <1.0 mcg/mL (12.0-46.0)
== END 2021-02-09 15:56 | disposition home or self-care (01) ==
PROVIDERS: Physician Assistant Medical; Emergency Provider Emergency Medicine
DX: O21.0 Mild hyperemesis gravidarum (principal); O99.281 Endocrine, nutritional and metabolic diseases complicating pregnancy, first trimester; E86.0 Dehydration; O99.351 Diseases of the nervous system complicating pregnancy, first trimester; G40.909 Epilepsy, unspecified, not intractable, without status epilepticus; Z3A.08 8 weeks gestation of pregnancy; Z91.14 Patient's other noncompliance with medication regimen
CPT/HCPCS: 36415; 76700; 76801; 80053; 80177; 81003; 83690; 83735; 84702; 85025; 85610; 96361; 96374; 96375; 96376; 99284; J1200; J1953; J2060; J2405

== ENCOUNTER → 2021-02-16 13:39 | Outpatient (BNVA) | payer MEDICAID, SELFPAY | PROVIDERS: Visit Provider Obstetrics & Gynecology ==

== ENCOUNTER → 2021-02-28 13:53 | Outpatient (BNVA) | payer MEDICAID, SELFPAY | PROVIDERS: Visit Provider Advanced Practice Midwife | DX: Z34.91 Encounter for supervision of normal pregnancy, unspecified, first trimester (principal); Z3A.10 10 weeks gestation of pregnancy | CPT/HCPCS: 99212 ==

== ENCOUNTER 2021-03-01 14:27 | Outpatient (REF) | payer MEDICAID, SELFPAY ==
[2021-03-01 15:26] LABS: Hematocrit 41.4 % (37-47); Hemoglobin 14.4 g/dl (12.0-16.0); Mean Corpuscular HGB Conc 34.8 g/dl (31.0-35.0); Mean Corpuscular Hemoglobin 33.2 pg (27.0-33.0); Mean Corpuscular Volume 95.4 fL (80-98); Mean Platelet Volume 8.9 fL (9.4-12.3); Platelet Count 263 X10*3/uL (160-400); Red Blood Count 4.34 X10*6/uL (4.20-5.50); Red Cell Distribution Width 12.3 % (11.0-16.0); White Blood Count 11.2 X10*3/uL (4.8-10.8)
[2021-03-01 16:01] LABS: Amphetamine Screen Urine Not Detected (Not Detect); Barbiturates, Urine Not Detected (Not Detect); Benzodiazepines Screen Urine Not Detected (Not Detect); Cannabinoid Screen Urine POSITIVE (Not Detect); Cocaine Screen Urine Not Detected (Not Detect); Opiate Screen Urine Not Detected (Not Detect); Phencyclidine Screen Urine Not Detected (Not Detect)
[2021-03-02 04:48] LABS: HBsAGNum1 0.16 S/CO (0.00-0.99); Hepatitis B Surface Antigen Negative (Negative); ~HepC Num1 0.05 S/CO (0.00-0.79); ~Hepatitis C Antibody Nonreactive (Nonreactive)
[2021-03-02 05:25] LABS: HIV AB/AG Nonreactive (Nonreactive); HIV Num 1 0.06 S/CO (0.00-0.99)
[2021-03-02 06:47] LABS: Syphilis Screen Nonreactive (Nonreactive)
[2021-03-03 02:21] LABS: Rubella IgG Antibody 7.36 Index
== END 2021-03-01 14:28 | disposition home or self-care (01) ==
LOC: HO.LAB 14:27
PROVIDERS: Visit Provider Advanced Practice Midwife
DX: Z01.84 Encounter for antibody response examination (principal); Z11.3 Encounter for screening for infections with a predominantly sexual mode of transmission; Z11.4 Encounter for screening for human immunodeficiency virus [HIV]; Z11.59 Encounter for screening for other viral diseases
CPT/HCPCS: 80307; 85027; 86762; 86780; 86787; 86803; 86850; 86900; 86901; 87086; 87340; 87389

== ENCOUNTER 2021-03-03 17:24 | Outpatient (REF) | payer MEDICAID, SELFPAY | END 2021-03-03 17:25 | disposition home or self-care (01) | LOC: HO.LAB 17:24 | PROVIDERS: Visit Provider Advanced Practice Midwife | DX: Z34.90 Encounter for supervision of normal pregnancy, unspecified, unspecified trimester (principal) | CPT/HCPCS: 86850; 86900; 86901 ==

== ENCOUNTER 2021-03-04 10:55 | Outpatient (REF) | payer MEDICAID, SELFPAY ==
[2021-03-05 12:59] LABS: CT PCR NOT DETECTED (Not Detect.); NG PCR NOT DETECTED (Not Detect.)
[2021-03-05 13:03] LABS: BV Int Neg Control Negative (Negative); BV Int Pos Control Positive (Positive)
== END 2021-03-04 10:56 | disposition home or self-care (01) ==
LOC: HO.LAB 10:55
PROVIDERS: Visit Provider Advanced Practice Midwife
DX: Z36.3 Encounter for antenatal screening for malformations (principal); O99.611 Diseases of the digestive system complicating pregnancy, first trimester; K59.00 Constipation, unspecified; O26.891 Other specified pregnancy related conditions, first trimester; G40.909 Epilepsy, unspecified, not intractable, without status epilepticus; D06.9 Carcinoma in situ of cervix, unspecified; Z20.2 Contact with and (suspected) exposure to infections with a predominantly sexual mode of transmission; Z3A.11 11 weeks gestation of pregnancy; Z87.59 Personal history of other complications of pregnancy, childbirth and the puerperium
CPT/HCPCS: 81003; 87480; 87491; 87510; 87591; 87660; 99212

== ENCOUNTER 2021-03-11 13:29 | Outpatient (REF) | payer MEDICAID, SELFPAY ==
--- NOTE | ~2021-03-11 | US_ITS ---
EXAMINATION: OBSTETRICAL ULTRASOUND, FIRST TRIMESTER HISTORY: 25-year-old at 12.2 weeks NT screening COMPARISON: 02/09/2021 TECHNIQUE: Real time transabdominal imaging with color and M-mode Doppler. FINDINGS: A single, live IUP CRL of 65.1 mm c/w 12.6wks is noted. Heart Rate: 160 beats per minute. Normal yolk sac seen. NT was 1.43.mm. NB Present The embryo appears sonographically wnl for this GA. Both maternal ovaries are seen and appear normal. GESTATIONAL AGE: 1. Established GA: 12.2 wks 2. GA from [facility]: 12.6 wks ESTIMATED DATE OF DELIVERY: 1. Established ISIAH: 09/21/2021 2. ISIAH from [facility]: 09/17/2021 US/US OB 1T nuc measure IMPRESSION: 1. Single live IUP 2. Size equals dates 3. NT of 1.43 mm MFM Consultation: I reviewed the ultrasound findings along with significance of NT measurement. The NT of less than 3mm is generally reassuring. However, the sensitivity for T21 detection is only 60%. I reviewed the availability of serum aneuploidy screening which includes cell-free DNA and placental protein based tests. I discussed the sensitivity, false-positive rate, and other limitations associated with each test. I also reviewed the availability of invasive diagnostic tests that are associated small but definite risk of miscarriage. We also reviewed the differences between screening tests and diagnostic tests. After our discussion, she opted for the First trimester screening that is based on cell-free DNA or non-invasive testing (NIPT). The result will be faxed to your office in approximately 7 days. A follow up at 18 weeks for survey has been scheduled. Thank you very much for this referral. Total time 30 minutes. The time spent was devoted to counseling the patient about the disease and diagnosis, coordinating care including reviewing her records, pertinent lab data and studies, as well as discussing diagnostic evaluation and workup, plan therapeutic interventions and future disposition of care. This includes any additional research needed to obtain further information in formulating the plan of care of this patient. This note was generated with a voice recognition program. Please excuse any errors which may have been overlooked during my review of this note. Sometimes these errors may affect the content or meaning of a given sentence.
== END 2021-03-11 13:30 | disposition home or self-care (01) ==
LOC: HO.US 13:29
PROVIDERS: Visit Provider Obstetrics & Gynecology
DX: Z34.91 Encounter for supervision of normal pregnancy, unspecified, first trimester (principal); Z36.82 Encounter for antenatal screening for nuchal translucency
CPT/HCPCS: 76813

== ENCOUNTER 2021-03-13 18:06 | Emergency (ER) | payer MEDICAID, SELFPAY ==
[2021-03-13 18:58] VITALS: BP 118/74; PULSE 91; RESP 16; TEMP 36.6; O2SAT 100; BMI 27.4
== END 2021-03-13 20:57 | disposition left against medical advice (07) ==
PROVIDERS: Emergency Provider Emergency Medicine
DX: O26.891 Other specified pregnancy related conditions, first trimester (principal); R42 Dizziness and giddiness; Z3A.12 12 weeks gestation of pregnancy
CPT/HCPCS: 99281; 99282

== ENCOUNTER → 2021-03-16 08:47 | Outpatient (BNVA) | payer MEDICAID, SELFPAY | PROVIDERS: Visit Provider Obstetrics & Gynecology | DX: O26.891 Other specified pregnancy related conditions, first trimester (principal); D06.9 Carcinoma in situ of cervix, unspecified; Z3A.13 13 weeks gestation of pregnancy | CPT/HCPCS: 99212 ==

== ENCOUNTER → 2021-04-01 08:49 | Outpatient (BNVA) | payer MEDICAID, SELFPAY | PROVIDERS: Visit Provider Advanced Practice Midwife | DX: O26.892 Other specified pregnancy related conditions, second trimester (principal); R51.9 Headache, unspecified; F12.11 Cannabis abuse, in remission; Z86.69 Personal history of other diseases of the nervous system and sense organs; Z3A.15 15 weeks gestation of pregnancy | CPT/HCPCS: 81003; 99212 ==

== ENCOUNTER → 2021-04-13 09:52 | Outpatient (BNVA) | payer MEDICAID, SELFPAY | PROVIDERS: Visit Provider Obstetrics & Gynecology | DX: O09.292 Supervision of pregnancy with other poor reproductive or obstetric history, second trimester (principal); O09.892 Supervision of other high risk pregnancies, second trimester; D06.9 Carcinoma in situ of cervix, unspecified; O09.72 Supervision of high risk pregnancy due to social problems, second trimester; O99.342 Other mental disorders complicating pregnancy, second trimester; F41.8 Other specified anxiety disorders; O99.322 Drug use complicating pregnancy, second trimester; F12.10 Cannabis abuse, uncomplicated; Z3A.17 17 weeks gestation of pregnancy | CPT/HCPCS: 99212 ==

== ENCOUNTER 2021-04-22 08:48 | Outpatient (REF) | payer MEDICAID, SELFPAY ==
--- NOTE | ~2021-04-22 | US_ITS ---
EXAMINATION: US OBSTETRICAL CLINICAL INFORMATION: 35-year-old at 18.2 weeks of gestation Screening for anomaly COMPARISON: 03/11/2021 TECHNIQUE: Real-time transabdominal ultrasound was performed using C1-5 megahertz transducer. FINDINGS: A single, active, fetus is seen in vertex presentation. The placenta is anterior without previa, and the amniotic fluid volume is wnl. MEASUREMENTS: 1. Biparietal Diameter: 4.4 cm; 19.2 wks 2. Occipital Frontal Diameter: 5.6 cm 3. Head Circumference: 16.2 cm; 19.0 wks 4. Abdominal Circumference: 13.6 cm; 19.1 wks 5. Femur Length: 2.9 cm; 19.1 wks 6. Humerus Length: 2.9 cm; 19.4 wks 7. Tibia Length: 2.4 cm; 18.5 wks 8. Ulna Length: 2.7 cm; 20.0 wks 9. Lateral ventricle: 0.4 cm 10. Cerebellum: 1.9 cm; 19.4 wks 11. Cisterna Magna: 0.6 cm 12. Nuchal Fold: 2.3 mm 13. Heart Rate: 144 beats per minute Rt ovary: normal Lt ovary: normal Cervical length 3.8 cm on T/A. GESTATIONAL AGE: 1. Established GA: 18.2 wks 2. GA from [facility]: 19.1 wks ESTIMATED DATE OF DELIVERY: 1. Established ISIAH: 09/21/2021 2. ISIAH from [facility]: 09/15/2021 ANATOMY: An isolated EIF was noted. The visualized anatomy includes but not limited to: 1. Cranium: Normal 2. Intracranial anatomy: cavum septum pellucidi, lateral ventricles, choroid plexus, cerebellum, posterior fossa, third and fourth ventricles. 3. face: orbits, lip/palate, profile, nasal bone 4. Heart: four-chamber view of the heart, ventricular septum, foramen ovale, pulmonary vein, left and right outflow tracts, three-vessel view, 3 vessel trachea view, aortic and ductal arches, situs.. 5. Diaphragm: Normal 6. Abdominal wall: Normal 7. Cord Insertion: Normal 8. Spine: Cervical, thoracic, lumbar, sacral. 9. Stomach: Normal size and shape 10. Right Kidney: Normal 11. Left Kidney: Normal 12. 3 vessel cord: Normal 13. Upper extremity: Open hands, fifth digit. 14. Lower extremity: Tibia, fibula, bilateral feet. 15. Bladder: Normal 16. Genitalia: Female, patient aware US/US OB /maternal detail IMPRESSION: 1. Single, living, intrauterine with appropriate biometry. 2. Normal survey DISCUSSION: I reviewed today's ultrasound findings. We discussed the limitations of ultrasound in diagnosing aneuploidy and other congenital abnormalities. I reviewed the differences between screening test and diagnostic test. In the setting of low risk N IPT, isolated EIF is considered a normal variant. She was informed that the baseline incidence of congenital abnormalities is approximately 3-5%. Not all these conditions are diagnosable in utero. RECOMMENDATIONS: 1. Follow up when necessary. Thank you for allowing me to participate in her care. This note was generated with a voice recognition program. Please excuse any errors which may have been overlooked during my review of this note. Sometimes these errors may affect the content or meaning of a given sentence.
== END 2021-04-22 08:49 | disposition home or self-care (01) ==
LOC: HO.US 08:48
PROVIDERS: Absent Provider Obstetrics & Gynecology; Visit Provider Advanced Practice Midwife
DX: O35.9XX0 Maternal care for (suspected) fetal abnormality and damage, unspecified, not applicable or unspecified (principal); Z3A.18 18 weeks gestation of pregnancy
CPT/HCPCS: 36415; 76811; 82105

== ENCOUNTER 2021-05-11 10:41 | Outpatient (REF) | payer MEDICAID, SELFPAY ==
[2021-05-11 12:47] LABS: Amphetamine Screen Urine Not Detected (Not Detect); Barbiturates, Urine Not Detected (Not Detect); Benzodiazepines Screen Urine Not Detected (Not Detect); Cannabinoid Screen Urine Not Detected (Not Detect); Cocaine Screen Urine Not Detected (Not Detect); Fentanyl, urine Not Detected (Not Detect); Opiate Screen Urine Not Detected (Not Detect); Phencyclidine Screen Urine Not Detected (Not Detect)
== END 2021-05-11 10:42 | disposition home or self-care (01) ==
LOC: HO.LAB 10:41
PROVIDERS: Visit Provider Obstetrics & Gynecology
DX: O26.892 Other specified pregnancy related conditions, second trimester (principal); G40.909 Epilepsy, unspecified, not intractable, without status epilepticus; D06.9 Carcinoma in situ of cervix, unspecified; Z3A.21 21 weeks gestation of pregnancy
CPT/HCPCS: 80307; 99212

== ENCOUNTER 2021-05-26 11:22 | Outpatient (REF) | payer MEDICAID, SELFPAY ==
[2021-05-26 13:27] LABS: Alanine Aminotransferase 14 U/L (0-31); Albumin Level 3.7 g/dL (3.5-5.0); Alkaline Phosphatase 33 U/L (39-117); Aspartate Amino Transferase 15 U/L (5-31); Bilirubin Direct < 0.2 mg/dL (0.0-0.5); Bilirubin Total 0.2 mg/dL (0.0-1.0); Total Protein 6.3 g/dL (6.5-8.0)
[2021-05-27 02:46] LABS: CT PCR NOT DETECTED (Not Detect.); NG PCR NOT DETECTED (Not Detect.)
[2021-05-29 14:33] LABS: BV Int Neg Control Negative (Negative); BV Int Pos Control Positive (Positive)
[2021-05-30 19:42] LABS: Chendeoxycholic Acid 4.2 umol/L (< OR = 3.9); Cholic Acid 0.7 umol/L (< OR = 2.8); Deoxycholic Acid <0.5 umol/L (< OR = 2.3)
== END 2021-05-26 11:23 | disposition home or self-care (01) ==
LOC: HO.LAB 11:22
PROVIDERS: Visit Provider Obstetrics & Gynecology
DX: O99.712 Diseases of the skin and subcutaneous tissue complicating pregnancy, second trimester (principal); L29.9 Pruritus, unspecified; O98.812 Other maternal infectious and parasitic diseases complicating pregnancy, second trimester; B37.3 Candidiasis of vulva and vagina; O99.352 Diseases of the nervous system complicating pregnancy, second trimester; G40.909 Epilepsy, unspecified, not intractable, without status epilepticus; O34.42 Maternal care for other abnormalities of cervix, second trimester; D06.9 Carcinoma in situ of cervix, unspecified; Z3A.23 23 weeks gestation of pregnancy; Z79.899 Other long term (current) drug therapy
CPT/HCPCS: 36415; 80076; 82542; 87480; 87491; 87510; 87591; 87660; 99212

== ENCOUNTER 2021-06-02 09:26 | Emergency (ER) | payer MEDICAID, SELFPAY ==
[2021-06-02 09:42] VITALS: BP 115/78; PULSE 117; RESP 16; TEMP 36.3; O2SAT 98; BMI 28.0
--- NOTE | 2021-06-02 10:31 | PC.NURSE ---
Bilateral lower abd pain at 6 months of . Pt vomiting this morning states that it appeared to be bile . She denies diarrhea, vaginal bleeding, abnormal vag discharge, or pain with urination. Does report some low back discomfort.
[2021-06-02 10:32] VITALS: BP 122/69; PULSE 92; RESP 18; TEMP 36.9; O2SAT 96
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
[2021-06-02] MEDS: 0.9 % Sodium Chloride 1,000 ML 999 ML IV (11:04)
[2021-06-02] MEDS: Acetaminophen 325 MG TABLET 650 MG PO (11:04)
[2021-06-02] MEDS: ondansetron HCL 4 MG/2 ML VIAL IVPUSH (11:04)
[2021-06-02 11:07] LABS: MANUAL DIFF FLAG NO
[2021-06-02 11:12] LABS: Basophils Absolute Auto 0.1 X10*3/uL (0.0-0.2); Basophils Percent Auto 0.5 % (0-2); Eosinophils Absolute Auto 0.1 X10*3/uL (0.0-0.4); Eosinophils Percent Auto 1.1 % (0-4); Hematocrit 36.4 % (37-47); Hemoglobin 12.3 g/dl (12.0-16.0); Imm Gran Abs Auto 0.06 X10*3/uL (0.00-0.03); Imm Gran Pct Auto 0.6 % (0.0-0.4); Lymphocytes Absolute Auto 1.4 X10*3/uL (1.2-4.9); Lymphocytes Percent Auto 13.4 % (20-40); Mean Corpuscular HGB Conc 33.8 g/dl (31.0-35.0); Mean Corpuscular Hemoglobin 32.5 pg (27.0-33.0); Mean Platelet Volume 8.9 fL (9.4-12.3); Monocytes Absolute Auto 0.5 X10*3/uL (0.1-1.2); Monocytes Percent Auto 5.3 % (2-11); Neutrophils Percent Auto 79.1 % (45-73); Platelet Count 239 X10*3/uL (160-400); Red Blood Count 3.79 X10*6/uL (4.20-5.50); Red Cell Distribution Width 12.2 % (11.0-16.0); White Blood Count 10.1 X10*3/uL (4.8-10.8)
[2021-06-02 11:25] LABS: Appearance Urine HAZY; Color Urine YELLOW; Glucose Urine UA NEG (NEG); Leukocyte Esterase Urine NEG (NEG); Nitrite Urine NEG (NEG); Urine Blood NEG (NEG); Urine Ketones NEG (NEG); Urine Protein TRACE MG/DL (NEG-TRACE)
[2021-06-02 11:34] LABS: Alanine Aminotransferase 24 U/L (0-31); Albumin Level 3.8 g/dL (3.5-5.0); Alkaline Phosphatase 35 U/L (39-117); Anion Gap 10 (12-20); Aspartate Amino Transferase 28 U/L (5-31); Bilirubin Total 0.3 mg/dL (0.0-1.0); Blood Urea Nitrogen 5 mg/dL (9-16); Calcium 8.2 mg/dL (8.4-10.2); Carbon Dioxide 24 mmol/L (22-29); Chloride 106 mmol/L (96-108); Creatinine Clr Calc Pharmacy 138.9; Estimated Glomerular Filt Rate > 60; Glucose Random 72 mg/dL (60-115); Potassium 4.2 mmol/L (3.3-5.1); Sodium 136 mmol/L (135-145); Total Protein 6.7 g/dL (6.5-8.0)
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
--- NOTE | 2021-06-02 12:21 | PC.NURSE ---
@ 1218PM DR BAILEY REQUESTS CALL PLACED TO [facility] PT TX LINE FOR THIS PT ML ANSWERS, TAKES PT INFO AND CALL BACK NUMBER THEN ASKS TO SPEAK WITH DR LEO BAILEY TAKES OVER CALL RIGHT AWAY
--- NOTE | 2021-06-02 12:28 | PC.NURSE ---
@1228PM RETURN CALL FROM ML OF [facility] PT TX LINE WITH OB ON THE LINE FOR DR LEO BAILEY TAKES OVER CALL RIGHT AWAY
--- NOTE | 2021-06-02 13:05 | PC.NURSE ---
Report given to Beau 2, IV removed.
== END 2021-06-02 13:09 | disposition home or self-care (01) ==
PROVIDERS: Emergency Provider Emergency Medicine
DX: O26.892 Other specified pregnancy related conditions, second trimester (principal); R10.31 Right lower quadrant pain; R10.32 Left lower quadrant pain; O99.891 Other specified diseases and conditions complicating pregnancy; M54.50 Low back pain, unspecified; O26.612 Liver and biliary tract disorders in pregnancy, second trimester; K83.1 Obstruction of bile duct; Z3A.24 24 weeks gestation of pregnancy
CPT/HCPCS: 36415; 80053; 81003; 85025; 96361; 96374; 99285; J2405

== ENCOUNTER 2021-06-03 11:15 | Outpatient (REF) | payer MEDICAID, SELFPAY ==
--- NOTE | ~2021-06-03 | US_ITS ---
EXAMINATION: OBSTETRICAL ULTRASOUND, Follow up HISTORY: A 25-year-old at 24.2 weeks of gestation Intrahepatic cholestasis of Seizure disorder Size date discrepancy COMPARISON: 04/22/2021 TECHNIQUE: Real time transabdominal imaging with color and M-mode Doppler. PRESENTATION: Vertex PLACENTA LOCATION: Anterior without previa AMNIOTIC FLUID: Normal MEASUREMENTS: 1. Biparietal Diameter: 6.0 cm; 24.3 wks 2. Head Circumference: 22.1 cm; 24.1 wks 3. Abdominal Circumference: 20.2 cm; 24.6 wks 4. Femur Length: 4.7 cm; 25.5 wks 5. Heart Rate: 148 beats per minute WEIGHT: EFW: 766 grams (1 lbs 11 oz) -- 7 6 %. GESTATIONAL AGE: 1. Established GA: 24.2 wks 2. GA from AUA: 24.6 wks ESTIMATED DATE OF DELIVERY: 1. Established ISIAH: 09/21/2021 2. ISIAH from AUA: 09/17/2021 US/US OB follow up IMPRESSION: A single active fetus is in vertex presentation Size equals dates Normal amniotic fluid volume She is complaining of the generalized pruritus without rash. Reports that her itching is most intense on the palm and dorsum of her foot. According to the patient, she had blood test which was suggestive of the intrahepatic cholestasis of (IH CP). I discussed the nature, scope and approximate management of intrahepatic cholestasis of . There is increased risk of mortality associated with the intrahepatic cholestasis of if the total bile acid approaches 100. In the meantime, interval growth evaluation and surveillance during is recommended. I advised her that delivery may be indicated in some severe cases of IHCP. I also recommend starting ursodiol 300 mg by mouth twice a day. This can be increased to a maximum dose of 500 mg 3 times a day if clinically indicated. She should continue Keppra and f/u with her neurologist. A follow up in 3 wks is recommended (scheduled). Thank you very much for this referral. Total time 45 minutes. The time spent was devoted to counseling the patient about the disease and diagnosis, coordinating care including reviewing her records, pertinent lab data and studies, as well as discussing diagnostic evaluation and workup, plan therapeutic interventions and future disposition of care. This includes any additional research needed to obtain further information in formulating the plan of care of this patient. This note was generated with a voice recognition program. Please excuse any errors which may have been overlooked during my review of this note. Sometimes these errors may affect the content or meaning of a given sentence.
[2021-06-03 13:05] LABS: Hematocrit 34.9 % (37-47); Hemoglobin 11.8 g/dl (12.0-16.0); Mean Corpuscular HGB Conc 33.8 g/dl (31.0-35.0); Mean Corpuscular Hemoglobin 32.7 pg (27.0-33.0); Mean Corpuscular Volume 96.7 fL (80-98); Mean Platelet Volume 8.9 fL (9.4-12.3); Platelet Count 238 X10*3/uL (160-400); Red Blood Count 3.61 X10*6/uL (4.20-5.50); Red Cell Distribution Width 12.2 % (11.0-16.0); White Blood Count 10.1 X10*3/uL (4.8-10.8)
[2021-06-03 14:28] LABS: Creatinine Urine 180.46 mg/dL; Protein/Creatinine Ratio, Ur 0.05 (<0.2); Total Protein Urine Random 9 mg/dL (<12)
[2021-06-09 12:36] LABS: Chendeoxycholic Acid 2.9 umol/L (< OR = 3.9); Cholic Acid 0.5 umol/L (< OR = 2.8); Deoxycholic Acid <0.5 umol/L (< OR = 2.3)
== END 2021-06-03 11:16 | disposition home or self-care (01) ==
LOC: HO.US 11:15
PROVIDERS: Referring Provider Obstetrics & Gynecology; Visit Provider Obstetrics & Gynecology Maternal & Fetal Medicine
DX: O26.619 Liver and biliary tract disorders in pregnancy, unspecified trimester (principal); O26.899 Other specified pregnancy related conditions, unspecified trimester; O99.352 Diseases of the nervous system complicating pregnancy, second trimester; O26.842 Uterine size-date discrepancy, second trimester; G40.909 Epilepsy, unspecified, not intractable, without status epilepticus; K83.1 Obstruction of bile duct; L29.9 Pruritus, unspecified; Z3A.24 24 weeks gestation of pregnancy
CPT/HCPCS: 36415; 76816; 82542; 84156; 85027

== ENCOUNTER → 2021-06-06 10:32 | Outpatient (BNVA) | payer MEDICAID, SELFPAY | PROVIDERS: Visit Provider Obstetrics & Gynecology | DX: Z34.82 Encounter for supervision of other normal pregnancy, second trimester (principal); Z3A.24 24 weeks gestation of pregnancy | CPT/HCPCS: 99212 ==

== ENCOUNTER → 2021-06-08 11:14 | Outpatient (BNVA) | payer MEDICAID, SELFPAY | PROVIDERS: Visit Provider Obstetrics & Gynecology | DX: O99.352 Diseases of the nervous system complicating pregnancy, second trimester (principal); G40.909 Epilepsy, unspecified, not intractable, without status epilepticus; O26.612 Liver and biliary tract disorders in pregnancy, second trimester; K83.1 Obstruction of bile duct; Z3A.25 25 weeks gestation of pregnancy | CPT/HCPCS: 99212 ==

== ENCOUNTER → 2021-06-14 08:51 | Outpatient (BNVA) | payer MEDICAID, SELFPAY | PROVIDERS: Visit Provider Obstetrics & Gynecology | DX: O26.612 Liver and biliary tract disorders in pregnancy, second trimester (principal); K83.1 Obstruction of bile duct; Z3A.25 25 weeks gestation of pregnancy | CPT/HCPCS: 99212 ==

== ENCOUNTER → 2021-06-22 11:48 | Outpatient (BNVA) | payer MEDICAID, SELFPAY | PROVIDERS: Visit Provider Obstetrics & Gynecology | DX: O26.612 Liver and biliary tract disorders in pregnancy, second trimester (principal); K83.1 Obstruction of bile duct; Z23 Encounter for immunization; Z3A.27 27 weeks gestation of pregnancy | CPT/HCPCS: 90471; 90686; 90715; 99212 ==

== ENCOUNTER 2021-06-24 10:01 | Outpatient (REF) | payer MEDICAID, SELFPAY ==
--- NOTE | ~2021-06-24 | US_ITS ---
EXAMINATION: OBSTETRICAL ULTRASOUND, Follow up HISTORY: A 25-year-old at the 27.2 weeks of gestation Intrahepatic cholestasis of Size date discrepancy COMPARISON: 06/03/2021 TECHNIQUE: Real time transabdominal imaging with color and M-mode Doppler. PRESENTATION: Vertex PLACENTA LOCATION: Anterior without previa AMNIOTIC FLUID: ALFREDO 16.6 cm MEASUREMENTS: 1. Biparietal Diameter: 6.6 cm; 26.4 wks 2. Head Circumference: 24.5 cm; 26.5 wks 3. Abdominal Circumference: 21.8 cm; 26.2 wks 4. Femur Length: 5.3 cm; 20.0 wks 5. Heart Rate: 146 beats per minute WEIGHT: EFW: 1000 grams (2 lbs 3 oz) -- 24 %. BIOPHYSICAL PROFILE: Motion: 2 Tone: 2 Breathin Amniotic Fluid: 2 Total score: 8/8 GESTATIONAL AGE: 1. Established GA: 27.2 wks 2. GA from AUA: 27.0 wks ESTIMATED DATE OF DELIVERY: 1. Established ISIAH: 09/21/2021 2. ISIAH from AUA: 09/23/2021 / OB follow up IMPRESSION: 1. A single active fetus is in vertex presentation 2. Size equals dates 3. Reassuring testing She reports doing better on ursodiol 300 mg by mouth twice a day. The right is has very much subsided. I reviewed today's findings and gave her reassurance. I reviewed the increased rate of adverse outcome in the setting of IHCP and the need for a close monitoring. She is to transfer her OB care to [facility]. Thank you very much for this referral. Total time 30 minutes. The time spent was devoted to counseling the patient about the disease and diagnosis, coordinating care including reviewing her records, pertinent lab data and studies, as well as discussing diagnostic evaluation and workup, plan therapeutic interventions and future disposition of care. This includes any additional research needed to obtain further information in formulating the plan of care of this patient. This note was generated with a voice recognition program. Please excuse any errors which may have been overlooked during my review of this note. Sometimes these errors may affect the content or meaning of a given sentence.
== END 2021-06-24 10:02 | disposition home or self-care (01) ==
LOC: HO.US 10:01
PROVIDERS: Visit Provider Obstetrics & Gynecology
DX: O26.619 Liver and biliary tract disorders in pregnancy, unspecified trimester (principal); K83.1 Obstruction of bile duct
CPT/HCPCS: 76816

== ENCOUNTER 2021-11-11 15:04 | Emergency (ER) | payer MEDICAID, SELFPAY ==
[2021-11-11 15:07] VITALS: BP 127/87; PULSE 105; RESP 18; TEMP 37; O2SAT 100; BMI 29.9
[2021-11-11 15:23] LABS: MANUAL DIFF FLAG NO
[2021-11-11 15:25] LABS: UPreg QC Valid YES; Urine Pregnancy POSITIVE (NEGATIVE)
[2021-11-11 15:26] LABS: Appearance Urine CLEAR; Color Urine YELLOW; Glucose Urine UA NEG (NEG); Leukocyte Esterase Urine TRACE (NEG); Nitrite Urine NEG (NEG); Specific Gravity - Urine >= 1.030 (1.005-1.025); UACC Culture Trigger YES; Urine Blood TRACE (NEG); Urine Ketones >=80 MG/DL (NEG); Urine Protein 1+ MG/DL (NEG-TRACE)
[2021-11-11 15:26] LABS: Basophils Absolute Auto 0.1 X10*3/uL (0.0-0.2); Basophils Percent Auto 0.6 % (0-2); Eosinophils Percent Auto 0.1 % (0-4); Hemoglobin 13.1 g/dl (12.0-16.0); Imm Gran Abs Auto 0.04 X10*3/uL (0.00-0.03); Imm Gran Pct Auto 0.5 % (0.0-0.4); Lymphocytes Absolute Auto 1.3 X10*3/uL (1.2-4.9); Lymphocytes Percent Auto 14.4 % (20-40); Mean Corpuscular HGB Conc 33.6 g/dl (31.0-35.0); Mean Corpuscular Hemoglobin 30.1 pg (27.0-33.0); Mean Corpuscular Volume 89.7 fL (80.0-98.0); Mean Platelet Volume 8.9 fL (9.4-12.3); Monocytes Absolute Auto 0.5 X10*3/uL (0.1-1.2); Monocytes Percent Auto 5.1 % (2-11); Neutrophils Percent Auto 79.3 % (45-73); Platelet Count 328 X10*3/uL (160-400); Red Blood Count 4.35 X10*6/uL (4.20-5.50); Red Cell Distribution Width 14.5 % (11.0-16.0); White Blood Count 8.9 X10*3/uL (4.8-10.8)
[2021-11-11 15:35] LABS: Squamous Epithelial Cell Urine 3+ /LPF
[2021-11-11 15:36] LABS: Bacteria Urine 1+ /LPF
[2021-11-11 15:37] LABS: Anion Gap 14 (12-20); Blood Urea Nitrogen 4 mg/dL (9-16); Calcium 9.7 mg/dL (8.4-10.2); Carbon Dioxide 23 mmol/L (22-29); Chloride 107 mmol/L (96-108); Creatinine Clr Calc Pharmacy 117.6; Estimated Glomerular Filt Rate > 60; Glucose Random 97 mg/dL (60-115); Potassium 3.8 mmol/L (3.3-5.1); Sodium 140 mmol/L (135-145)
[2021-11-11 15:44] VITALS: BP 131/79; PULSE 93; RESP 14; TEMP 37.1; O2SAT 100
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
[2021-11-11 16:14] LABS: Influenza A Negative (Negative); Influenza B2 Negative (Negative)
--- NOTE | 2021-11-11 16:48 | PC.NURSE ---
patient left, unable to give to pt d/c, orders/ ER visit summary
== END 2021-11-11 16:51 | disposition left against medical advice (07) ==
PROVIDERS: Emergency Provider Emergency Medicine
DX: N39.0 Urinary tract infection, site not specified (principal); Z33.1 Pregnant state, incidental; R11.2 Nausea with vomiting, unspecified; R51.9 Headache, unspecified; R20.2 Paresthesia of skin
CPT/HCPCS: 36415; 80048; 81001; 81025; 85025; 87086; 87502; 99283; 99284

== ENCOUNTER 2022-01-29 12:39 | Emergency (ER) | payer MEDICAID, SELFPAY ==
[2022-01-29 13:17] VITALS: BP 147/75; PULSE 78; RESP 18; TEMP 37.1; O2SAT 98; BMI 60.5
[2022-01-29] MEDS: Ondansetron ODT 4 MG TAB.RAPDIS TRANSLINGU (13:21)
[2022-01-29 13:29] LABS: MANUAL DIFF FLAG NO
[2022-01-29 13:31] LABS: Basophils Absolute Auto 0.1 X10*3/uL (0.0-0.2); Basophils Percent Auto 0.4 % (0-2); Eosinophils Percent Auto 0.1 % (0-4); Hematocrit 39.4 % (37.0-47.0); Hemoglobin 13.3 g/dl (12.0-16.0); Imm Gran Abs Auto 0.04 X10*3/uL (0.00-0.03); Imm Gran Pct Auto 0.3 % (0.0-0.4); Lymphocytes Absolute Auto 1.1 X10*3/uL (1.2-4.9); Lymphocytes Percent Auto 8.1 % (20-40); Mean Corpuscular HGB Conc 33.8 g/dl (31.0-35.0); Mean Corpuscular Hemoglobin 31.2 pg (27.0-33.0); Mean Corpuscular Volume 92.5 fL (80.0-98.0); Mean Platelet Volume 9.3 fL (9.4-12.3); Monocytes Absolute Auto 0.3 X10*3/uL (0.1-1.2); Monocytes Percent Auto 2.1 % (2-11); Neutrophils Absolute Auto 12.2 x10*3/uL (2.0-8.3); Platelet Count 305 X10*3/uL (160-400); Red Blood Count 4.26 X10*6/uL (4.20-5.50); Red Cell Distribution Width 13.2 % (11.0-16.0); White Blood Count 13.7 X10*3/uL (4.8-10.8)
[2022-01-29 13:56] LABS: Anion Gap 14 (12-20); Blood Urea Nitrogen 7 mg/dL (9-16); Calcium 9.6 mg/dL (8.4-10.2); Carbon Dioxide 23 mmol/L (22-29); Chloride 107 mmol/L (96-108); Creatinine Clr Calc Pharmacy 177.1; Estimated Glomerular Filt Rate > 60; Glucose Random 98 mg/dL (60-115); Potassium 4.2 mmol/L (3.3-5.1); Sodium 140 mmol/L (135-145)
== END 2022-01-29 18:19 | disposition left against medical advice (07) ==
LOC: HO.ED 18:10
PROVIDERS: Emergency Provider Emergency Medicine
DX: E86.0 Dehydration (principal); R11.10 Vomiting, unspecified
CPT/HCPCS: 36415; 80048; 85025; 99281; 99283

== ENCOUNTER 2022-04-03 10:28 | Outpatient (REF) | payer MEDICAID, SELFPAY | END 2022-04-03 10:29 | disposition home or self-care (01) | LOC: HO.LAB 10:28 | PROVIDERS: Visit Provider Obstetrics & Gynecology | DX: Z32.02 Encounter for pregnancy test, result negative (principal); D06.9 Carcinoma in situ of cervix, unspecified | CPT/HCPCS: 57454; 81025; 88142; 88305 ==

== ENCOUNTER → 2022-04-27 08:28 | Outpatient (BNVA) | payer MEDICAID, SELFPAY | PROVIDERS: Visit Provider Obstetrics & Gynecology | DX: D06.9 Carcinoma in situ of cervix, unspecified (principal); Z98.890 Other specified postprocedural states | CPT/HCPCS: 99212 ==

== ENCOUNTER 2022-12-11 13:03 | Outpatient (REF) | payer MEDICAID, SELFPAY ==
[2022-12-11 16:49] LABS: Appearance Urine Turbid; Color Urine Yellow; Glucose Urine UA Negative (Negative); Leukocyte Esterase Urine Negative (Negative); Nitrite Urine Negative (Negative); Specific Gravity - Urine >= 1.030 (1.005-1.025); Urine Blood Negative (Negative); Urine Ketones Negative (Negative); Urine Protein Negative (Neg-Trace)
[2022-12-11 18:30] LABS: CT PCR NOT DETECTED (Not Detect.); NG PCR NOT DETECTED (Not Detect.)
[2022-12-12 09:56] LABS: BV Int Neg Control Negative (Negative); BV Int Pos Control Positive (Positive)
== END 2022-12-11 13:04 | disposition home or self-care (01) ==
LOC: HO.LAB 13:03
PROVIDERS: Visit Provider Advanced Practice Midwife
DX: Z11.3 Encounter for screening for infections with a predominantly sexual mode of transmission (principal); D06.9 Carcinoma in situ of cervix, unspecified; R33.9 Retention of urine, unspecified; Z78.9 Other specified health status; Z98.890 Other specified postprocedural states
CPT/HCPCS: 0353U; 81003; 81025; 87480; 87510; 87660; 99212

== ENCOUNTER 2022-12-11 14:37 | Outpatient (REF) | payer MEDICAID, SELFPAY ==
[2022-12-14 04:44] LABS: HPV mRNA E6/E7 rflx Not Detected (Not Detected)
== END 2022-12-11 14:38 | disposition home or self-care (01) ==
LOC: HO.LNP 14:37
PROVIDERS: Visit Provider Advanced Practice Midwife
DX: Z12.4 Encounter for screening for malignant neoplasm of cervix (principal); Z11.51 Encounter for screening for human papillomavirus (HPV); D06.9 Carcinoma in situ of cervix, unspecified
CPT/HCPCS: 87624; 88142

== ENCOUNTER 2024-03-10 08:17 | Outpatient (AMB) | payer MEDICAID, SELFPAY ==
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
[2024-03-10 08:36] VITALS: BMI 30.2
== END 2024-03-10 09:25 | disposition home or self-care (01) ==
PROVIDERS: Visit Provider Physician Assistant
DX: M75.81 Other shoulder lesions, right shoulder (principal); M25.311 Other instability, right shoulder
CPT/HCPCS: 99203

== ENCOUNTER 2024-03-10 09:13 | Outpatient (REF) | payer MEDICAID, SELFPAY ==
--- NOTE | ~2024-03-10 | XR_ITS ---
EXAMINATION: XR SHOULDER, RIGHT CLINICAL INFORMATION: Right shoulder pain. COMPARISON: Right shoulder radiographs dated 12/19/2018. TECHNIQUE: AP, scapular Y, and axillary views of the right shoulder. FINDINGS: The bones and soft tissues are normal. No fracture. Glenohumeral and acromioclavicular alignment is anatomic with normal joint space. No abnormal soft tissue calcifications. XR/XR shoulder RT min 2V IMPRESSION: Unremarkable examination.
== END 2024-03-10 09:14 | disposition home or self-care (01) ==
LOC: HO.HOSX 09:13
PROVIDERS: Visit Provider Physician Assistant
DX: M75.81 Other shoulder lesions, right shoulder (principal); M25.311 Other instability, right shoulder
CPT/HCPCS: 73030; 99212

== ENCOUNTER 2024-03-28 08:53 | Outpatient (RCR) | payer MEDICAID, SELFPAY ==
--- NOTE | 2024-03-28 09:53 | MHC.PT.EP ---
[facility] [place] Office [place] Office [place] Office [address] Anne Dudley [address] [phone] F: [phone] F: [phone] F: [phone] F: [phone] Physical Therapy Plan of Care Date of Evaluation: 03/28/24 Date of Surgery: n/a Diagnosis: R shoulder pain Assessment: Patient is a 28 year old female presenting to PT with complaints of pain in his R shoulder. Pt reports onset of pain began 6-7 months ago due to insidious onset. She presents today with impairments in pain, ROM, clicking/clunking, posture, strength. Pt's current occupation is at the [employer], with baseline physical activities including reaching, lifting, work, ADLs, caring for 2 year old. Pt expresses alf goal of reducing pain, and is motivated to work towards this in PT. Clinical presentation today is most consistent with signs and sx associated with R shoulder pain and pt will benefit from skilled PT 2 week x 4 weeks to address the following problems and impairments noted upon evaluation: pain, ROM, clicking/clunking, posture, strength. These problems limit the patient with the following functional activities: reaching, lifting, work, ADLs, caring for 2 year old. The prescribed treatment plan of care is medically necessary. Co-morbidities of epilepsia were identified and taken into considerations of plan of care. Pt was educated on HEP, role of PT, prognosis, POC. Frequency and Duration: The patient will be seen 2 x week x 4 weeks Short Term Goals: Pt will demonstrate symmetrical ROM in 2 weeks. Pt will demonstrate improved R shoulder MMT strength by 1/3 grade in 2 weeks. Pt will demonstrate improved posture as evidence for less cues during session in 2 weeks. Prison Goals: Pt will demonstrate improved SPADI score by 13 points in 4 weeks for improved functional mobility. Pt will demonstrate ability to reach with min to no pain in 4 weeks for return to PLOF. Pt will demonstrate ability to lift with min to no pain in 4 weeks for improved ability to care for her daughter. Treatment Plan: Modalities to reduce pain, spasms and effusion. Manual therapy to restore motion and function. Therapeutic exercise to improve strength and flexibility. Neuromuscular re-education for posture and balance. Therapeutic activities to return to functional activities of daily living. Electronically signed by: Mireya Alcazar, PT, DPT, ATC Please sign and return to therapist. Thank you for your referral.
--- NOTE | 2024-04-29 08:18 | MHC.PT.DC ---
[facility] [place] Office [place] [facility] [place] Office [address] [phone] F: [phone] F: [phone] F: [phone] F: [phone] Physical Therapy Discharge Report Diagnosis: R shoulder pain Date of Surgery: n/a Date of Evaluation: 03/28/24 Date of Discharge: 04/29/24 Treatments to Date: 1 Cancellations to Date: 0 No Shows to Date: 1 Discharge Status: Visit Non-compliance Discharge Summary: Pt has not attended skilled PT since her eval >30 days ago due to no showing the only appointment scheduled and therefore to be d/c. Electronically signed by: Mireya Alcazar, PT, DPT, ATC Please sign and return to therapist. Thank you for your referral.
== END 2024-04-29 08:19 | disposition home or self-care (01) ==
LOC: HO.PTCHIC 08:53
PROVIDERS: PCP Internal Medicine; Visit Provider Physician Assistant
DX: M75.81 Other shoulder lesions, right shoulder (principal); M25.311 Other instability, right shoulder
CPT/HCPCS: 97110; 97161

== ENCOUNTER 2024-10-08 10:36 | Outpatient (REF) | payer MEDICAID, SELFPAY ==
--- NOTE | ~2024-10-08 | XR_ITS ---
EXAMINATION: XR WRIST, RIGHT CLINICAL INFORMATION: atraumatic pain in right wrist COMPARISON: X-ray report dated December 01, 2007. TECHNIQUE: PA, lateral, and oblique views of the right wrist. FINDINGS: Carpal bones are intact. The alignment is normal. The distal radius and ulna are intact. The metacarpals are intact. No lytic or blastic lesions. No subcutaneous emphysema. No metallic or radiopaque foreign body. XR/XR wrist RT min 3V IMPRESSION: Normal x-ray, right wrist. Electronically signed by: Robert Perez MD 10/08/2024 11:25 AM HANS
--- OUTSIDE RECORDS SUMMARY | 2024-10-08 11:13 | XMS_ITS | Encounter Summary ---
Author Organization [employer] Address [address] [place] [address] [address] [place] [address] Care Team Providers Care Tread Builder Name Role Phone Kapil Quispe MD Primary Care Prov ider Encounter Details Date Type Department Care Team ([facility] st Contact Info) Description 03/16/[address] [facility] [address] [place] [address] Kapil Quispe MD [address] [place] [address] Social History Tobacco Use Types Packs/Day Years Used Date Smoking Tobacco: Never Assessed Comments Unknown Sex and Gender Information Value Date Recorded Sex Assigned at Female 06/19/2022 10:14 AM EDT Legal Sex Female 10:14 AM EDT Gender Identity Female 06/19/2022 10:14 AM EDT Sexual Orientation Straight 06/19/2022 10 :14 AM EDT documented as of this encounter Plan of Treatment Not on file documented as of this encounter Visit Diagnoses Not on filedocumented in this encounter Care Teams Tread Builder Relationship Specialty Start Date End Date Kapil Quispe MD [address] [place] [address] PCP - General Internal Medicine 01/09/20 documented as of this encounter
--- OUTSIDE RECORDS SUMMARY | 2024-10-08 11:13 | XMS_ITS | Encounter Summary ---
Author Organization [employer] Address [address] [facility] [address] [place] [address] Care Team Providers Care Shuttle Preparation Supervisor Name Role Phone Kapil Quispe MD Primary Care Prov ider Reason for Visit * Reason Onset Date Comments Med Refill 08/28/2022 Encounter Details Date Type Department Care Team (Late st Contact Info) Description 08/28/2022 Telephone [facility] [address] [place] [address] Kapil Quispe MD [address] [place], [place] [id number] Med Refill Social History Tobacco Use Types Packs/Day Years Used Date Smoking Tobacco: Never Assessed Comments Unknown Sex and Gender Information Value Date Recorded Sex Assigned at Female 06/19/2022 10:14 AM EDT Legal Sex Female 10:14 AM EDT Gender Identity Female 06/19/2022 10:14 AM EDT Sexual Orientation Straight 06/19/2022 10 :14 AM EDT documented as of this encounter Miscellaneous Notes * Telephone Encounter - Brandt Lopez - 08/28/2022 9:58 AM EST Tc from pt requesting new script for plan B one-step 1.5 mg tablet documented in this encounter Plan of Treatment Not on file documented as of this encounter Visit Diagnoses Not on filedocumented in this encounter Care Teams Shuttle Preparation Supervisor Relationship Specialty Start Date End Date VelázquezKapil Mayer MD [address] [place] [id number] PCP - General Internal Medicine 01/09/20 documented as of this encounter
--- OUTSIDE RECORDS SUMMARY | 2024-10-08 11:13 | XMS_ITS | Encounter Summary ---
Author Organization [employer] Address [address] [facility] [address] [place] [address] Care Team Providers Care Regulatory Product Manager Name Role Phone Kapil Quispe MD Primary Care Prov ider Reason for Visit * Reason Onset Date Comments Nurse Triage 10/08/2024 Encounter Details Date Type Department Care Team ([facility] st Contact Info) Description 10/08/2024 Telephone [facility] [address] [place] [address] Kapil Quispe MD [address] [place], [place] [id number] Nurse Triage Social History Tobacco Use Types Packs/Day Years Used Date Smoking Tobacco: Never Passive Smoke Exposure: Never Smokeless Tobacco: Never Alcohol Use Standard Drinks/Week Comments Not Currently 0 (1 standard drink = 0.6 oz pur e alcohol) Depression Answer Date Recorded Patient Health Questionnaire-9 Score 4 12/24/2023 Patient Health Questionnaire-9 Score 4 12/24/2023 Last PHQ-9: Questionnaire Data Not on file 0 12/24/2023 Housing Stability Answer Date Recorded What is your housing situation today? I have tisha amaya 12/04/[address] you li ve. Do you have problems with any of the following? None of the above 12/04/2023 Food Insecurity Answer Date Recorded Within the past 12 months, y ou worried that your food would run out before you got money to buy more: Never True 12/04/2023 Within the past 12 months,th e food you bought just didn't last and you didn't have enough money to get more: Never True Transportation Answer Date Recorded In the past 12 months, has l ack of transportation kept you from medical appts, meetings, work or from getting things needed for daily living? No 12/04/2023 Utilities Answer Date Recorded In the past 12 months, has t he electric, gas, oil or water company threatened to shut off services in your home? No 12/04/2023 Depression Answer Date Recorded Patient Health Questionnaire-2 Score 4 12/24/2023 Comments Unknown Sex and Gender Information Value Date Recorded Sex Assigned at Female 06/19/2022 10:14 AM EDT Legal Sex Female 10:14 AM EDT Gender Identity Female 06/19/2022 10:14 AM EDT Sexual Orientation Straight 06/19/2022 10 :14 AM EDT documented as of this encounter Miscellaneous Notes * Telephone Encounter - Cintia Guzman RN - 10/08/2024 9:24 AM EST called pt to triage, spoke to pt. pt states woke up this morning with severe right hand and wrist pain. pt denies known recent injury, severe swelling, inability to move the hand or wrist, or other associated symptoms. pt states is currently on the way to the walk in center in [facility] as she was told by a PAR that there are no open appts available today at this time and pt wants to be seen right away. pt states difficulty with ROM and unable to do daily tasks easily. given location, hours, and waittimes cautions. advised home care: rest, ice, heat, OTC pain reliever as needed and call back if worsening or new concerns. pt taking Tylenol and Ibuprofen without significant relief. insurance verified. Protocol Used: Hand Pain (Adult) Protocol-Based Disposition: See in Office or Video Visit within 3 Days Video visit offer not recorded Positive Triage Question: * Patient wants to be seen * All higher-acuity triage questions were negative Care Advice Discussed: * Reassurance and Education - Hand Pain * Pain Medicines * Reasons To Call Back - You become worse * Reassurance and Education - Overuse * Use a Cold Pack for Pain * Use Heat After 48 Hours for Pain * Pain Medicines * Avoid Overuse * Telephone Encounter - Matt Combs - 10/08/2024 8:45 AM EST Symptom: Hand or Wrist Swelling Outcome: Schedule an urgent appointment (within 1 hour) or talk to a nurse or provider soon Reason: Can't use the hand normally The caller accepted this outcome. Contact pt at [phone] documented in this encounter Plan of Treatment Not on file documented as of this encounter Visit Diagnoses Not on filedocumented in this encounter Additional Health Concerns Assessment Noted Time PHQ-9 Depression Total Score: 4 12/24/19 24 2:58 PM EDT documented as of this encounter Care Teams Regulatory Product Manager Relationship Specialty Start Date End Date Kapil Quispe MD [address] [place] [id number] PCP - General Internal Medicine 01/09/20 documented as of this encounter
--- OUTSIDE RECORDS SUMMARY | 2024-10-08 11:13 | XMS_ITS | Encounter Summary ---
Author Organization [employer] Address [address] [facility] 7[address] [place] [address] Care Team Providers Care Cloth Cutting Machine Operator Name Role Phone Kapil Quispe MD Primary Care Prov ider Reason for Referral * Consultation (Routine) - Pending Review Specialty Diagnoses / Procedures Referred By Michael stallings Referred To Contact Orthopaedic Surgery Diagnoses Right wrist pain Cong Moreira MD [address] [place] [address] Phone: tel: fax: Referral ID Status Reason Start Date Expiration Date Visits Requested Visits Authorized [id number] Pending Review Specialty Services Required 10/08/2024 10/08/2025 1 1 * Neurology (Routine) - Authorized Specialty Diagnoses / Procedures Referred By Michael stallings Referred To Contact Diagnoses Numbness of fingers of both hands Procedures Nerve conduction test Cong Moreira MD [address] [place] [phone] Phone: tel: fax: [address] Phone: tel: fax: Referral ID Status Reason Start Date Expiration Date V isits Requested Visits Authorized [id number] Authorized 10/08/2024 10/08/2025 1 1 * Neurology (Routine) - Authorized Specialty Diagnoses / Procedures Referred By Michael stallings Referred To Contact Diagnoses Numbness of fingers of both hands Procedures EMG Cong Moreira MD [address] [place] [address] Phone: tel: fax: [facility] [address] [place] [address] Phone: tel: fax: Referral ID Status Reason Start Date Expiration Date V isits Requested Visits Authorized [id number] Authorized 10/08/2024 10/08/2025 1 1 Reason for Visit * Reason Comments Joint Swelling Wrist or hand Encounter Details Date Type Department Care Team (Late st Contact Info) Description 10/08/2024 9:40 AM EST Office Visit [facility] [address] [place] [address] Right wrist pain (Primary Dx); Numbness of fingers of both hands Social History Tobacco Use Types Packs/Day Years [...] AM EDT documented as of this encounter Last Filed Vital Signs Vital Sign Reading Time Taken Comments Blood Pressure 118/79 10/08/2024 9:46 AM EST Pulse 107 10/08/2024 9:46 AM EST Temperature 36.2 ??C (97.1 ??F) 10/08/2024 9:46 AM ES T Respiratory Rate 17 10/08/2024 9:46 AM EST Oxygen Saturation 99% 10/08/2024 9:46 AM EST Inhaled Oxygen Concentration - - Weight 73.8 kg (162 lb 9.6 oz) 10/08/2024 9:46 A M EST Height - - Body Mass Index 29.74 02/11/2024 1:19 PM EDT documented in this encounter Plan of Treatment Scheduled Orders Name Type Priority Associated Diagnoses Orde r Schedule XR Wrist 3+ Views Right Imaging Routine Right wrist pain Expected: 10/08/2024, Expires: 10/08/2025 EMG Neurology Routine Numbness of fingers of both hands Expected: 10/08/2024 (Approximate), Expires: 10/08/2025 Nerve conduction test Neurology Routine Numbness of fingers of both hands Expected: 10/08/2024 (Approximate), Expires: 10/08/2025 Scheduled Referrals Name Type Priority Associated Diagnoses Order Schedule Referral to Orthopaedic Surgery Outpatient Referral Routine Right wrist pain Expected: 10/08/2024 (Approximate), Expires: 10/08/2025 documented as of this encounter Visit Diagnoses Diagnosis Right wrist pain- Primary Pain in joint, forearm Numbness of fingers of both hands Disturbance of skin sensation documented in this encounter Additional Health Concerns Assessment Noted Time PHQ-9 Depression Total Score: 4 12/24/19 24 2:58 PM EDT documented as of this encounter Care Teams Cloth Cutting Machine Operator Relationship Specialty Start Date End Date Kapil Quispe MD [address] [place] [id number] PCP - General Internal Medicine 01/09/20 documented as of this encounter
--- OUTSIDE RECORDS SUMMARY | 2024-10-08 11:13 | XMS_ITS | Clinical Summary ---
Author Organization [employer] Address [address] [facility] 7t [place] [address] Care Team Providers Care Actuarial Science Professor Name Role Phone Kapil Quispe MD Primary Care Prov ider Allergies Active Allergy Reactions Criticality Noted Date Comments Haloperidol Palpitations Low 11/07/2023 Other Reaction(s): Seasonal allergy Metoclopramide 03/16/2020 Other Reaction(s): Shaking all over Pollen Extract 10/11/2015 Medications * This document contains information received from the source organization and may not represent a complete record from that organization. loratadine (Claritin) 10 MG tablet Take 1 tablet (10 mg) by mouth in the morning. 30 tablet 11 4 11/07/19 25 Active Blood Pressure kit 1 kit Once per day. 1 kit 4 Active hydrOXYzine HCl (Atarax) 25 MG tablet Take 1 tablet (25 mg) by mouth if needed in the morning, at noon, and at bedtime for anxiety. 90 tablet 3 4 Active fluticasone (Flonase) 50 MCG/ACT nasal spray Administer 1-2 sprays into each nostril Once per day. Shake gently. Before first use, prime pump. After use, clean tip and replace cap. 16 g 2 4 01/02/20 25 Active acetaminophen (Tylenol) 500 MG tablet Take 2 tablets (1,000 mg) by mouth every 6 (six) hours if needed for moderate pain or fever. 40 tablet 5 Active ibuprofen 400 MG tablet Take 1 tablet (400 mg) by mouth every 6 (six) hours if needed for moderate pain or fever for up to 30 doses. 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 Alyce endorsed anxiety symptoms and reported experiencing panic attacks. She's overwhelmed and stressed out due to raising her 2 kids without support. No time for self-care. Difficulty to control anger. PLAN: (check all that apply) New/Additional Services needed PCP management Off-site services for . Referral for OP individual therapy and PPD program will be placed. Encounters Date Type Department Care Team Description 10/08/2024 9:40 AM EST Office Visit [facility] [address] [place] [address] Right wrist pain (Primary Dx); Numbness of fingers of both hands 10/08/2024 Telephone [facility] [address] [place] [address] Kapil Quispe MD Nurse Triage 08/25/2024 Telephone [facility] [address] [place] [address] Kapil Quispe MD Nurse Triage from Last 3 Months Social History Tobacco Use Types Packs/Day Years [...] Orientation Straight 06/19/2022 10 :14 AM EDT Last Filed Vital Signs Vital Sign Reading [...] oz) 10/08/2024 9:46 A M EST Height 157.5 cm (5' 2 ) 02/11/2024 1:19 PM EDT Body Mass Index 29.74 02/11/2024 1:19 PM EDT Plan of Treatment Health Maintenance Due Date Last Done Comments Alcohol/Substance Use Screening 2008 Family Planning (PISQ) 2011 Pneumococcal Vaccine: Pediatrics (0 to 5 Years) and At-Risk Patients (6 to 49) Years) (1 of 2 - PCV) 2015 Hepatitis A Vaccines (2 of 2 - Risk 2-dose series) 04/23/2020 10/22/2019 Pap Smear 12/12/2023 12/11/2022 COVID-19 Vaccine ( season) 2024 01/19/2022, 12/29/2021 Influenza Vaccine (#1) 2024 , 06/22/2021, 09/11/2016, Additional history exists SDOH Screening 12/03/2024 12/04/2023 Depression Screening 12/23/2024 12/24/2023, 12/24/19 Tobacco Screening 10/08/2025 10/08/2024 DTaP/Tdap/Td Vaccines (9 - Td or Tdap) 06/22/2031 06/22/2021, 10/22/2019, 06/30/2008, Additional history exists Zoster Vaccines (1 of 2) 2046 RSV Patients and Patients Aged 60 years or older (1 - 1-dose 75+ series) 2071 Hepatitis B Vaccines Completed 1996, 1996, 1996 HIB Vaccines Completed 10/09/1997, 09/21, 01/02/1997, Additional history exists IPV Vaccines Completed 07/06/2000, 09/21, 01/02/1997, Additional history exists HPV Vaccines Completed 11/21/2008, 11/2008, 07/28/2008, Additional history exists Meningococcal Vaccine Aged Out 12/10/2017, 010 No longer eligible based on patient's age to complete this topic HIV Screening Completed 08/28/2019 Hepatitis C Screening Completed 08/28/2019 RSV under 20 months Aged Out No longe r eligible based on patient's age to complete this topic Rotavirus Vaccines Aged Out No longer eligible based on patient's age to complete this topic Procedures Procedure Name Priority Date/Time Associated Diagnosis Comments PAP/HPV Routine 12/11/2022 ZZZ HISTORICAL HEPATITIS C ANTIBODY RFLX Routine 08/28/2019 1:37 PM EST ZZZ HISTORICAL HIV AB/AG Routine 08/28/2019 1:37 PM EST from Last 3 Months or Most Recently Relevant to Health Maintenance Results * Pap Smear (12/11/2022) Historical Provider HEALTH MAINTENANCE Final Result * HEPATITIS C ANTIBODY RFLX (08/28/2019 1:37 PM EST) HEPATITIS C ANTIBODY NONREACTIVE NONREACTIVE [facility] Comment: Antibodies to HCV not detected; does not exclude early acute HCV infection. 08/28/2019 1:37 PM EST Historical Provider HISTORICAL/NON ORDERABLE LABS Final Result [facility] [address] * HIV AB/AG (08/28/2019 1:37 PM EST) HIV AG/AB NONREACTIVE [facility] Comment: HIV-1 p24 Ag and/or HIV-1/HIV-2 Ab not detected. ?? A test result that is nonreactive does not exclude the possibility of exposure to or infection with HIV-1 and/or HIV-2. Nonreactive results in this assay for individuals with prior exposure to HIV-1 and/or HIV-2 may be due to antigen and antibody levels that are below the limit of detection of this assay. ?? The [facility] HIV Ag/Ab Combo assay result and supplemental assay results should be interpreted in conjunction with the patient's clinical presentation, history and other laboratory results. ??If the results are inconsistent with clinical evidence, additional testing is suggested to confirm the result. 08/28/2019 1:37 PM EST us Historical Provider HISTORICAL/NON ORDERABLE LABS Final Result [facility] [address] from Last 3 Months or Most Recently Relevant to Health Maintenance [facility] Care Teams Actuarial Science Professor Relationship Specialty Start Date End Date Kapil Quispe MD [address] [place] [address] [place] [id number] PCP - General Internal Medicine 01/09/20
--- OUTSIDE RECORDS SUMMARY | 2024-10-08 11:13 | XMS_ITS | Encounter Summary ---
Author Organization [facility] Address [address] [facility] [address] [place] [address] Care Team Providers Care Administrative Hearing Officer Name Role Phone Kapil Quispe MD Primary Care Prov ider Encounter Details Date Type Department Care Team (Late st Contact Info) Description 03/16/2023 Orders Only [facility] MED[facility]INE [address] [place] [phone] Provider, MD Jeovany Social History Tobacco Use Types Packs/Day Years [...] on file documented as of this encounter Procedures Procedure Name Priority Date/Time Associated Diagnosis Comments HM PAP/HPV Routine 12/11/2022 documented in this encounter Results * Hm Pap Smear (12/11/2022) Historical Provider HEALTH MAINTENANCE Final Result documented in this encounter Visit Diagnoses Not on filedocumented in this encounter Care Teams Administrative Hearing Officer Relationship Specialty Start Date End Date Kapil Quispe MD [address] [facility] [place] [address] PCP - General Internal Medicine 01/09/20 documented as of this encounter
--- OUTSIDE RECORDS SUMMARY | 2024-10-08 11:13 | XMS_ITS | Clinical Summary ---
Author Organization [facility] Address [address] [place] [id number] Care Team Providers Care Jockey Room Custodian Name Role Phone Unavailable Primary Care Provider Unavailabl e Social History Tobacco Use Types Packs/Day Years Used Date Smoking Tobacco: Never Assessed Comments Unknown Sex and Gender Information Value Date Recorded Sex Assigned at Not on file Legal Sex Female 2:20 PM EST Gender Identity Not on file Sexual Orientation Not on file Plan of Treatment Health Maintenance Due Date Last Done Comments Hepatitis B Vaccine (1 of 3 - 19+ 3-dose series) 2015 Influenza Vaccine (#1) 2024 Pneumococcal Vaccine: Pediat rics (0 to 5 Years) and At-Risk Patients (6 to 64 Years) Aged Out No longer eligi ble based on patient's age to complete this topic Insurance [place]ICAID [place]
== END 2024-10-08 10:37 | disposition home or self-care (01) ==
LOC: HO.HHCX 10:36
PROVIDERS: Visit Provider Emergency Medicine
DX: M25.531 Pain in right wrist (principal)
CPT/HCPCS: 73110

== ENCOUNTER → 2024-10-08 10:37 | Outpatient (BNV) | payer MEDICAID, SELFPAY | PROVIDERS: Visit Provider Radiology Diagnostic Radiology | DX: M25.531 Pain in right wrist (principal) | CPT/HCPCS: 73110 ==

== ENCOUNTER 2024-10-13 16:10 | Outpatient (REF) | payer MEDICAID, SELFPAY ==
[2024-10-13 17:58] LABS: MANUAL DIFF FLAG NO
[2024-10-13 18:11] LABS: Appearance Urine Clear; Color Urine Yellow; Glucose Urine UA Negative (Negative); Leukocyte Esterase Urine Negative (Negative); Nitrite Urine Negative (Negative); PH 5.5 (5.0-9.0); Specific Gravity - Urine >= 1.030 (1.005-1.025); Urine Blood Negative (Negative); Urine Ketones Trace mg/dL (Negative); Urine Protein Negative (Neg-Trace)
[2024-10-13 18:12] LABS: Basophils Absolute Auto 0.1 X10*3/uL (0.0-0.2); Basophils Percent Auto 1.1 % (0-2); Eosinophils Absolute Auto 0.1 X10*3/uL (0.0-0.4); Hematocrit 41.8 % (37.0-47.0); Hemoglobin 13.9 g/dl (12.0-16.0); Imm Gran Abs Auto 0.01 X10*3/uL (0.00-0.03); Imm Gran Pct Auto 0.1 % (0.0-0.4); Lymphocytes Absolute Auto 2.4 X10*3/uL (1.2-4.9); Lymphocytes Percent Auto 34.2 % (20-40); Mean Corpuscular HGB Conc 33.3 g/dl (31.0-35.0); Mean Corpuscular Hemoglobin 30.7 pg (27.0-33.0); Mean Corpuscular Volume 92.3 fL (80.0-98.0); Mean Platelet Volume 9.5 fL (9.4-12.3); Monocytes Absolute Auto 0.4 X10*3/uL (0.1-1.2); Monocytes Percent Auto 6.2 % (2-11); Neutrophils Percent Auto 56.4 % (45-73); Platelet Count 271 X10*3/uL (160-400); Red Blood Count 4.53 X10*6/uL (4.20-5.50); White Blood Count 7.1 X10*3/uL (4.8-10.8)
[2024-10-13 18:16] LABS: Bacteria Urine None Seen (None Seen); Hyaline Casts Urine 0-2 /LPF (0-2); RBC Urine 0-2 /HPF (0-2); Squamous Epithelial Cell Urine 0-2 /HPF (0-2); WBC Urine 0-5 /HPF (0-5)
--- OUTSIDE RECORDS SUMMARY | 2024-10-13 18:17 | XMS_ITS | Clinical Summary ---
Author Organization [employer] Address [address] [facility] 7t [place] [address] Care Team Providers Care Community Health Consultant Name Role Phone Kapil Quispe MD Primary [...] in the morning. 30 tablet 11 4 025 Active Blood Pressure kit 1 kit Once [...] and replace cap. 16 g 2 4 025 Active acetaminophen (Tylenol) 500 MG tablet Take 2 tablets (1,000 mg) by mouth every 6 (six) hours if needed for moderate pain or fever. 40 tablet 5 Active ibuprofen 400 MG tablet Take 1 tablet (400 mg) by mouth every 6 (six) hours if needed for moderate pain or fever for up to 30 doses. 30 tablet 5 Active ciprofloxacin (Cipro) 500 MG tabletIndications: Acute pyelonephritis Take 1 tablet (500 mg) by mouth 2 times daily for 7 days. 14 tablet 5 025 Active Active Problems Problem Noted Date Diagnosed Date Elevated blood pressure read ing in office without diagnosis of hypertension 12/24/2023 Assessment & Plan (12/24/2023 5:49 PM EDT): Will provide a bp monitor, keep bp log, keep low sodium diet, follow up in 1 month Physical exam 12/24/2023 Assessment & Plan (12/24/2023 5:52 PM EDT): Unremarkble, pap smear done by Ob-display carver, she refers will undergo biopsy hx oh [...] Encounters Date Type Department Care Team Description 10/13/2024 3:20 PM EST Office Visit [facility] [address] [place], [place] [phone] Lien Kwan MD Pelvic pain (Primary Dx); Acute pyelonephritis 10/13/2024 Travel 10/13/2024 Telephone [facility] [address] [place] [address] Kapil Quispe MD Nurse Triage 10/08/2024 9:40 AM EST Office Visit [facility] [address] [place] [address] Cong Mendoza MD Right wrist pain (Primary Dx); Numbness of fingers of both hands 10/08/2024 Telephone [facility] [address] [place] [address] Kapil Quispe MD Nurse Triage 08/25/2024 Telephone [facility] [address] [place] [address] Kapil Quispe MD Nurse Triage from Last [...] Sign Reading Time Taken Comments Blood Pressure 126/79 10/13/2024 3:31 PM EST Pulse 107 10/13/2024 3:31 PM EST Temperature 36.8 ??C (98.2 ??F) 10/13/2024 3:31 PM ES T Respiratory Rate 16 10/13/2024 3:31 PM EST Oxygen Saturation 98% 10/13/2024 3:31 PM EST Inhaled Oxygen Concentration - - Weight 74.8 kg (164 lb 12.8 oz) 10/13/2024 3:31 PM EST Height 157.5 cm (5' 2 ) 10/13/2024 3:31 PM EST Body Mass Index 30.14 10/13/2024 3:31 PM EST Plan of Treatment Health Maintenance Due Date Last Done Comments Alcohol/Substance Use Screening 2008 Family Planning (PISQ) 2011 Pneumococcal Vaccine: Pediatrics (0 to 5 Years) and At-Risk Patients (6 to 49) Years) (1 of 2 - PCV) 2015 Hepatitis A Vaccines (2 of 2 - Risk 2-dose series) 04/23/2020 10/22/2019 Pap Smear 12/12/2023 12/11/2022 COVID-19 Vaccine (3 - 2023- season) 2024 01/19/2022, 12/29/2021 Influenza Vaccine (#1) 2024 , 06/22/2021, 09/11/2016, Additional history exists SDOH Screening 12/03/2024 12/04/2023 Depression Screening 12/23/2024 12/24/2023, 12/24/19 24 Tobacco Screening 10/13/2025 10/13/2024 DTaP/Tdap/Td Vaccines (9 - Td or Tdap) [...] Procedure Name Priority Date/Time Associated Diagnosis Comments POCT URINALYSIS DIPSTICK Routine 10/13/2024 4:15 PM EST Pelvic pain CBC WITH AUTO DIFFERENTIAL Routine 10/13/2024 4:12 PM EST Pelvic pain URINALYSIS, COMPLETE, WITH REFLEX TO CULTURE Routine 10/13/2024 12:00 AM EST Pelvic pain XR WRIST 3+ VIEWS RIGHT Routine 10/08/2024 10:37 AM EST Right wrist pain HM PAP/HPV Routine 12/11/2022 ZZZ HISTORICAL HEPATITIS C ANTIBODY RFLX Routine 08/28/2019 1:37 PM EST ZZZ HISTORICAL HIV AB/AG Routine 08/28/2019 1:37 PM EST from Last 3 Months or Most Recently Relevant to Health Maintenance Results * (ABNORMAL) POCT urinalysis dipstick manually resulted (10/13/2024 4:15 PM EST) Color, UA Yellow Clarity, UA Clear Glucose, UA Negative Bilirubin, UA Negative Ketones, UA Negative Spec Grav, UA 1.030 Blood, UA Positive(A) Negative, None Detected Comment:trace-lysed pH, UA 5.5 Protein, UA Trace Urobilinogen, UA 0.2 Leukocytes, UA Negative Negative, Rare, Trace Nitrite, UA Negative Negative, None Detected Appearance, UA clear QC Media Lot # Comment:[id number] Lot# Expiration Date Comment:11/17/2024 Urine 10/13/2024 4:15 PM EST Lien Kwan MD POINT OF CARE TEST ENTER/EDIT ORDERABLES Final Result * CBC auto differential (10/13/2024 4:12 PM EST) Pathologist [facility] White Blood Count 7.1 4.8 - 10.8 X10*3/uL [facility] Red Blood Count 4.53 4.20 - 5.50 X10*6/uL [facility] Hemoglobin 13.9 12.0 - 16.0 g/dl [facility] Hematocrit 41.8 37.0 - 47.0 % [facility] Mean Corpuscular Volume 92.3 80.0 - 98.0 fL [facility] Mean Corpuscular Hemoglobin 30.7 27.0 - 33.0 pg [facility] Mean Corpuscular HGB Conc 33.3 31.0 - 35.0 g/dl [facility] Red Cell Distribution Width 14.0 11.0 - 16.0 % [facility] Platelet Count 271 160 - 400 X10*3/uL [facility] Mean Platelet Volume 9.5 9.4 - 12.3 fL [facility] Neutrophils Percent Auto 56.4 45 - 73 % [facility] Imm Gran Pct Auto 0.1 0.0 - 0.4 % [facility] Lymphocytes Percent Auto 34.2 20 - 40 % [facility] Monocytes Percent Auto 6.2 2 - 11 % [facility] Eosinophils Percent Auto 2.0 0 - 4 % [facility] Basophils Percent Auto 1.1 0 - 2 % [facility] NRBC Pct Auto 0.0 0.0 - 0.2 /100WBC [facility] Neutrophils Absolute Auto 4.0 2.0 - 8.3 x10*3/uL [facility] Imm Gran Abs Auto 0.01 0.00 - 0.03 X10*3/uL [facility] Lymphocytes Absolute Auto 2.4 1.2 - 4.9 X10*3/uL [facility] Monocytes Absolute Auto 0.4 0.1 - 1.2 X10*3/uL [facility] Eosinophils Absolute Auto 0.1 0.0 - 0.4 X10*3/uL [facility] Basophils Absolute Auto 0.1 0.0 - 0.2 X10*3/uL [facility] NRBC Abs Auto 0.000 0.0 - 0.012 X10*3/uL [facility] Blood Venous blood specimen / Unknown 10/13/2024 4:12 PM EST 10/13/2024 5:51 PM EST us Lien Kwan MD LAB BLOOD ORDERABLES Final Re sult [facility] [address] [place] [address] [phone] * XR Wrist 3+ Views Right (10/08/2024 10:37 AM EST) Anatomical Region Laterality Modality Upper Extremities, Wrist Right Radiogr aphic Imaging 10/08/2024 10:3 7 AM EST Narrative 10/08/2024 11:28 AM EST ?[facility] ?[address] ?[place] [address] ?XRay Report ? Signed ? Patient: Davis,Alyce ?MR#: [id number] ? : 1995 ?Acct:[id number] ? Age/Sex: 29 / F ?ADM Date: 02/19/25 ? Loc: HO.HHCX ? Attending Dr: Cong Mendoza MD ? Ordering Physician: CONG MENDOZA MD ?? Date of Service: 10/08/24 ?? Procedure(s): XR wrist RT min 3V ?? Accession Number(s): [id number] ? cc: CONG MENDOZA MD ? EXAMINATION: ?? XR WRIST, RIGHT ? CLINICAL INFORMATION: ?? atraumatic pain in right wrist ? COMPARISON: ?? X-ray report dated December 01, 2007. ? TECHNIQUE: ?? PA, lateral, and oblique views of the right wrist. ? FINDINGS: ?? Carpal bones are intact. The alignment is normal. The distal radius and ?? ulna are intact. ?? The metacarpals are intact. ?? No lytic or blastic lesions. No subcutaneous emphysema. No metallic or ?? radiopaque foreign body. ? XR/XR wrist RT min 3V ?? IMPRESSION: ?? Normal x-ray, right wrist. ? Electronically signed by: ??Robert Perez MD ??10/08/2024 11:25 AM ?? EST ? Dictated By: ?Robert Metcalf MD ? Signed By: ?<Electronically signed by Rboert Prajapati MD in OV> ? 10/08/24 1125 ? DD/ 1037 ? TD/TT: 10/08/24 1100 ? Web Editor: ? Procedure Note Pedrito, Image - 10/08/2024 [place] [address] XRay Report Signed Patient: Sumit Davis#: [id number] : 1995Acct:[id number] Age/Sex: 29 / FADM Date: 10/08/24 Loc: HO.HHCX Attending Dr: Cong Mendoza MD Ordering Physician: CONG MENDOZA MD Date of Service: 10/08/24 Procedure(s): XR wrist RT min 3V Accession Number(s): [id number] cc: CONG MENDOZA MD EXAMINATION: XR WRIST, RIGHT CLINICAL INFORMATION: atraumatic pain in right wrist COMPARISON: X-ray report dated December 01, 2007. TECHNIQUE: PA, lateral, and oblique views of the right wrist. FINDINGS: Carpal bones are intact. The alignment is normal. The distal radius and ulna are intact. The metacarpals are intact. No lytic or blastic lesions. No subcutaneous emphysema. No metallic or radiopaque foreign body. XR/XR wrist RT min 3V IMPRESSION: Normal x-ray, right wrist. Electronically signed by: Robert Perez MD 10/08/2024 11:25 AM EST RP Dictated By: Robert Metcalf MD Signed By: <Electronically signed by Robert Prajapati MDin OV> 10/08/24 1125 DD/ 1037 TD/TT: 10/08/24 1100 Web Editor: Cong Mendoza MD IMG XR PROCEDURES Edited Result - Final * Hm Pap Smear (12/11/2022) Historical Provider HEALTH MAINTENANCE Final Result * HEPATITIS C ANTIBODY RFLX (08/28/2019 1:37 PM EST) Pathologist [facility] HEPATITIS C ANTIBODY NONREACTIVE NONREACTIVE [facility] Comment: Antibodies to HCV not detected; does not exclude early acute HCV infection. 08/28/2019 1:37 PM EST Jeovany Napoles MD HISTORICAL/NON ORDERABLE LABS Final Result [facility] [address] * HIV AB/AG (08/28/2019 1:37 PM [...] detection of this assay. ?? The [employer] HIV Ag/Ab Combo assay result and supplemental assay results should be interpreted in conjunction with the patient's clinical presentation, history and other laboratory results. ??If the results are inconsistent with clinical evidence, additional testing is suggested to confirm the result. 08/28/2019 1:37 PM EST us Historical Provider HISTORICAL/NON ORDERABLE LABS Final Result Performing Organization Address City/State/[facility] Co de Phone Number [facility] [address] from Last 3 Months or Most Recently Relevant to Health Maintenance [facility] Care Teams Community Health Consultant Relationship Specialty Start Date End Date Kapil Quispe MD [address] [facility] REGINA Ferguson PCP - General Internal Medicine 01/09/20
--- OUTSIDE RECORDS SUMMARY | 2024-10-13 18:17 | XMS_ITS | Encounter Summary ---
Author Organization [employer] [facility] Address [address] [facility] 7t [place] [address] Care Team Providers Care Certified Nurses Aide Name Role Phone Kapil Quispe MD Primary Care Prov ider Encounter Details Date Type Department Care Team (Late st Contact Info) Description 03/16/2023 Orders Only [facility] [address] [place] [phone] Provider, MD Jeovany Social History Tobacco Use [...] on filedocumented in this encounter Care Teams Certified Nurses Aide Relationship Specialty Start Date End Date Kapil Quispe MD [address] [facility] [place] [address] PCP - General Internal Medicine 01/09/20 documented as of this encounter
--- OUTSIDE RECORDS SUMMARY | 2024-10-13 18:17 | XMS_ITS | Encounter Summary ---
Author Organization [employer] Address [address] [facility] 7t [place] [address] Care Team Providers Care Client Application Support Engineer Name Role Phone Kapil Quispe MD Primary Care Prov ider Reason for Visit * Reason Onset Date Comments Med Refill 08/28/2022 Encounter Details Date Type Department Care Team (Late st Contact Info) Description 08/28/2022 Telephone [facility] [address] [place] [address] Kapil Quispe MD [address] [place], [place] [phone] Med Refill Social History Tobacco Use Types [...] on filedocumented in this encounter Care Teams Client Application Support Engineer Relationship Specialty Start Date End Date EvlázquezKapil Mayer MD [address] [place] [phone] PCP - General Internal Medicine 01/09/20 documented as of this encounter
--- OUTSIDE RECORDS SUMMARY | 2024-10-13 18:17 | XMS_ITS | Encounter Summary ---
Author Organization [employer] Address [address] [facility] 7t [place] [address] Care Team Providers Care Group Fitness Department Head Name Role Phone Kapil Quispe MD Primary Care Prov ider Reason for Referral * Consultation (Routine) - Authorized Specialty Diagnoses / Procedures Referred By Michael stallings Referred To Contact Orthopaedic Surgery Diagnoses Right wrist pain Cong Mendoza MD [address] [place] [phone] Phone: tel: fax: [facility] Orthopedics [address] [place] [address] Phone: tel: Referral ID Status Reason Start Date Expiration Date Visits Requested Visits Authorized [id number] Authorized Specialty Services Required 10/08/2024 10/08/2025 6 6 * Neurology (Routine) - Pending Review Specialty Diagnoses / Procedures Referred By Michael t Referred To Contact Diagnoses Numbness of fingers of both hands Procedures Nerve conduction test Cong Mendoza MD [address] [place] [address] Phone: tel: fax: [address] Phone: tel: fax: Referral ID Status Reason Start Date Expiration Date V isits Requested Visits Authorized [id number] Pending Review 10/08/2024 10/08/2025 1 1 * Neurology (Routine) - Pending Review Specialty Diagnoses / Procedures Referred By Michael stallings Referred To Contact Diagnoses Numbness of fingers of both hands Procedures EMG Cong Mendoza MD [address] [place] [address] Phone: tel: fax: [address] Phone: tel: fax: Referral ID Status Reason Start Date Expiration Date V isits Requested Visits Authorized [id number] Pending Review 10/08/2024 10/08/2025 1 1 Reason for Visit * Reason Comments Joint Swelling Wrist or hand Encounter Details Date Type Department Care Team (Late st Contact Info) Description 10/08/2024 9:40 AM EST Office Visit [facility] [address] [place] [phone] Cong Mendoza MD [address] [place] [phone] Right wrist pain (Primary Dx); Numbness of [...] 1:19 PM EDT documented in this encounter Progress Notes * Cong Mendoza MD - 10/08/2024 9:40 AM EST Subjective Patient ID: Alyce Davis is a 29 y.o. female. HPI Around 3 AM last night Alyce woke up, moved right wrist and noted pain in wrist, took Motrin. Went back to sleep. When she woke this AM, pain persists, worse with ROM. Pronation doesn't cause pain, but supination does. No trauma, joint swelling, fever, chills, rash, tick bite, family history of gout. Right- handed. Also has intermittent numbness/tingling in bilat fingers for past few months. Lives with daughter. LMP=doesn't have periods since she stopped Depo 4 months ago. 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 Never smoked. Patient Active Problem List Diagnosis Anxiety Elevated blood pressure reading in office without diagnosis of hypertension Physical exam The following portions of the chart were reviewed this encounter and updated as appropriate: Tobacco Allergies Meds Problems Med Hx Surg Hx Fam Hx Review of Systems Constitutional: Negative for fever. Respiratory: Negative for shortness of breath. Cardiovascular: Negative for chest pain. Gastrointestinal: Negative for abdominal pain. Musculoskeletal: Positive for arthralgias. Skin: Negative for rash. Neurological: Positive for numbness. Negative for headaches. Objective Physical Exam Vitals and nursing note reviewed. Constitutional: Appearance: Normal appearance. HENT: Head: Normocephalic and atraumatic. Nose: Nose normal. Eyes: Conjunctiva/sclera: Conjunctivae normal. Pupils: Pupils are equal, round, and reactive to light. Cardiovascular: Pulses: Radial pulses are 2+ on the right side. Pulmonary: Effort: Pulmonary effort is normal. Musculoskeletal: Comments: Supination and Tinel's test reproduces pain. No swelling, redness, or tenderness. Full ROM of wrist with pain. Skin: General: Skin is warm and dry. Neurological: Mental Status: She is alert. Sensory: Sensation is intact. Motor: Motor function is intact. Gait: Gait is intact. Psychiatric: Mood and Affect: Mood and affect normal. Behavior: Behavior normal. Procedures Assessment/Plan Diagnoses and all orders for this visit: Right wrist pain ?etiology. Prescribed ibuprofen, acetaminophen. Right wrist X-rays done in [facility] appear to show no acute finding when I reviewed images. Will call ptif radiologist reading differs. I fit pt with right cock-up splint. Referred to Orthopedic Surgery. - XR Wrist 3+ Views Right; Future Numbness of fingers of both hands NCS/EMG ordered. Will call pt with report. Rtc if not improving. - EMG; Future - Nerve conduction test; Future Other orders - acetaminophen (Tylenol) 500 MG tablet; Take 2 tablets (1,000 mg) by mouth every 6 (six) hours if needed for moderate pain or fever. - ibuprofen 400 MG tablet; Take 1 tablet (400 mg) by mouth every 6 (six) hours if needed for moderate pain or fever for up to 30 doses. documented in this encounter Plan of Treatment Scheduled Orders Name Type Priority Associated Diagnoses Orde r Schedule EMG Neurology Routine Numbness of fingers of both hands Expected: 10/08/2024 (Approximate), Expires: 10/08/2025 Nerve conduction test Neurology Routine Numbness of fingers of both hands Expected: 10/08/2024 (Approximate), Expires: 10/08/2025 Scheduled Referrals Name Type Priority Associated Diagnoses Order Schedule Referral to Orthopaedic Surgery Outpatient Referral Routine Right wrist pain Expected: 10/08/2024 (Approximate), Expires: 10/08/2025 documented as of this encounter Procedures Procedure Name Priority Date/Time Associated Diagnosis Comments XR WRIST 3+ VIEWS RIGHT Routine 10/08/2024 10:37 AM EST Right wrist pain documented in this encounter Results * XR Wrist 3+ Views Right (10/08/2024 10:37 AM EST) Anatomical Region Laterality Modality Upper Extremities, Wrist Right Radiogr aphic Imaging 10/08/2024 10:3 7 AM EST Narrative 10/08/2024 11:28 AM EST ?[facility] ?[address] ?[place] [address] ?XRay Report ? Signed ? Patient: Alyce Davis ?MR#: [id number] ? : 1995 ?Acct:[id number] ? Age/Sex: 29 / F ?ADM Date: 10/08/24 ? Loc: HO.HHCX ? Attending Dr: Cong Mendoza MD ? Ordering Physician: CONG MENDOZA MD ?? Date of Service: 10/08/24 ?? Procedure(s): XR wrist RT min 3V ?? Accession Number(s): [id number] ? cc: CONG MENDOZA MD ? EXAMINATION: [...] Perez MD ??10/08/2024 11:25 AM ?? EST RP ? Dictated By: ?Robert Metcalf MD ? Signed By: ?<Electronically signed by Robert Prajapati MD in OV> ? 10/08/24 1125 ? DD/ 1037 ? TD/TT: 10/08/24 1100 ? Gas Scrubber Operator: ? Procedure Note Donfayter, Image - 10/08/[address] [address] XRay Report Signed Patient: Sumit Davis#: [id number] : 1995Acct:[id number] Age/Sex: 29 / FADM Date: 10/08/24 Loc: HO.HHCX Attending Dr: Cong Mendoza MD Ordering Physician: CONG MENDOZA MD Date of Service: 10/08/24 Procedure(s): XR wrist RT min 3V Accession Number(s): [id number] cc: CONG MENDOZA MD EXAMINATION: XR WRIST, [...] Robert Perez MD 10/08/2024 11:25 AM EST Dictated By: Robert Metcalf MD Signed By: <Electronically signed by Robert Prajapati MDin OV> 10/08/24 1125 DD/ 1037 TD/TT: 10/08/24 1100 Gas Scrubber Operator: Cong Mendoza MD IMG XR PROCEDURES Edited Result - Final documented in this encounter Visit Diagnoses Diagnosis Right wrist pain- Primary Pain in joint, forearm Numbness of fingers of both hands Disturbance of skin sensation documented in this encounter Additional Health Concerns Assessment Noted Time PHQ-9 Depression Total Score: 4 12/24/19 24 2:58 PM EDT documented as of this encounter Care Teams Group Fitness Department Head Relationship Specialty Start Date End Date Kapil Quispe MD [address] [place] [phone] PCP - General Internal Medicine 01/09/20 documented as of this encounter
--- OUTSIDE RECORDS SUMMARY | 2024-10-13 18:17 | XMS_ITS | Encounter Summary ---
Author Organization [employer] Address [address] [facility] [address]t [place] [address] Care Team Providers Care Purchasing/Receiving Name Role Phone Kapil Quispe MD Primary Care Prov ider Encounter Details Date Type Department Care Team (Latest Contact Info) Description 10/13/2024 3:20 PM EST Office Visit [facility]S [address] [place], [place] [phone] Lien Kwan MD [address] [place] [address] Pelvic pain (Primary Dx); Acute pyelonephritis Social History Tobacco Use Types Packs/Day Years [...] Mass Index 30.14 10/13/2024 3:31 PM EST documented in this encounter Progress Notes * Lien Kwan MD - 10/13/2024 3:20 PM EST Subjective Patient ID: Alyce Davis is a 29 y.o. female who presents for abdominal and back pain. HPI Alyce was well until about 3-4 weeks ago when she starting having burning and itching with urination. She tried to ignore these symptoms and eventually, they decreased. However, 4 days ago she started having bilateral low back pain that is severe. Pain also in the abdomen and above the bladder. Hurts when she lies down and if she accidentally gets bumped in the abdomen. Has some white vaginal discharge. Does not use condoms. Review of Systems Constitutional: Positive for appetite change (decreased), chills and fever. Gastrointestinal: Positive for abdominal pain. Negative for constipation. Genitourinary: Positive for dysuria, menstrual problem and pelvic pain. Negative for decreased urine volume, difficulty urinating, frequency and vaginal bleeding (LMP 4 months ago). Musculoskeletal: Positive for back pain. Objective BP 126/79 (BP Location: Left arm, Patient Position: Sitting, BP Cuff Size: Adult) Pulse 107 Temp 98.2 ??F (36.8 ??C) (Oral) Resp 16 Ht 5' 2 (1.575 m) Wt 164 lb 12.8 oz (74.8 kg) SpO2 98% BMI 30.14 kg/m?? Physical Exam Constitutional: Appearance: She is ill-appearing. HENT: Head: Normocephalic and atraumatic. Eyes: General: No scleral icterus. Conjunctiva/sclera: Conjunctivae normal. Pupils: Pupils are equal, round, and reactive to light. Cardiovascular: Rate and Rhythm: Normal rate and regular rhythm. Pulses: Normal pulses. Heart sounds: Normal heart sounds. Pulmonary: Effort: Pulmonary effort is normal. Abdominal: General: Abdomen is flat. Bowel sounds are normal. Palpations: Abdomen is soft. There is no mass. Tenderness: There is abdominal tenderness in the right lower quadrant, suprapubic area and left lower quadrant. There is guarding. There is no right CVA tenderness, left CVA tenderness or rebound. Negative signs include Rovsing's sign and McBurney's sign. Musculoskeletal: Lumbar back: Tenderness (lumbar region and bilateral buttocks) present. Neurological: General: No focal deficit present. Mental Status: She is alert. Psychiatric: Mood and Affect: Mood normal. Behavior: Behavior normal. Assessment/Plan Diagnoses and all orders for this visit: Pelvic pain: UA today shows only trace blood and trace protein. Has significant pain in the pelvis bilaterally, moreso in the LLQ and suprapubic. Afebrile. Reports she had an outpatient xray of her right wrist 2 days ago and they did a urine test at that time and it was negative. Will send urine for CX, check BMP and CBC, check self-swab for STIs as this might represent PID. Iftreat empirically for pyelonephritis with cipro and discontinue it if UCX negative. If vaginal swabs and Ucx are negative, will need imaging, likely CT abd/pelvis. - POCT urinalysis dipstick manually resulted - Basic Metabolic Panel; Future - CBC auto differential; Future - Urinalysis, Complete, with Reflex to Culture; Future - Bacterial Vaginosis Panel - Chlamydia/N. Gonorrhoeae RNA, TMA, Urogenitial Acute pyelonephritis - ciprofloxacin (Cipro) 500 MG tablet; Take 1 tablet (500 mg) by mouth 2 times daily for 7 days. documented in this encounter Plan of Treatment Pending Results Name Type Priority Associated Diagnoses Date /Time Urinalysis, Complete, with Reflex to Culture Lab Routine Pelvic pain 10/13/2024 12:00 AM EST Scheduled Orders Name Type Priority Associated Diagnoses Orde r Schedule Basic Metabolic Panel Lab Routine Pelvic pain Expected: 10/13/2024 (Approximate), Expires: 10/13/2025 Bacterial Vaginosis Panel Microbiology Routine Pelvic pain Ordered: 10/13/2024 Chlamydia/N. Gonorrhoeae RNA, TMA, Urogenitial Microbiology Routine Pelvic pain Ordered: 10/13/2024 documented as of this encounter Procedures Procedure Name Priority Date/Time Associated Diagnosis Comments POCT URINALYSIS DIPSTICK Routine 10/13/2024 4:15 PM EST Pelvic pain CBC WITH AUTO DIFFERENTIAL Routine 10/13/2024 4:12 PM EST Pelvic pain URINALYSIS, COMPLETE, WITH REFLEX TO CULTURE Routine 10/13/2024 12:00 AM EST Pelvic pain documented in this encounter Results * (ABNORMAL) POCT urinalysis dipstick manually [...] Appearance, UA clear QC Media Lot # Comment:[id number] Lot# Expiration Date Comment:11/17/2024 Urine 10/13/2024 4:15 PM EST Lien Kwan MD POINT OF CARE TEST ENTER/EDIT ORDERABLES Final Result * CBC auto differential (10/13/2024 4:12 PM EST) White Blood Count 7.1 4.8 - 10.8 X10*3/uL [facility] Red Blood Count 4.53 4.20 - 5.50 X10*6/uL [facility] Hemoglobin 13.9 12.0 - 16.0 g/dl [facility] Hematocrit 41.8 37.0 - 47.0 % [facility] Mean Corpuscular Volume 92.3 80.0 - 98.0 fL [facility] Mean Corpuscular Hemoglobin 30.7 27.0 - 33.0 pg [facility] Mean Corpuscular HGB Conc 33.3 31.0 - 35.0 g/dl [facility] Red Cell Distribution Width 14.0 11.0 - 16.0 % [facility] Platelet Count 271 160 - 400 X10*3/uL [facility] Mean Platelet Volume 9.5 9.4 - 12.3 fL [facility] Neutrophils Percent Auto 56.4 45 - 73 % [facility] Imm Gran Pct Auto 0.1 0.0 - 0.4 % [facility] Lymphocytes Percent Auto 34.2 20 - 40 % [facility] Monocytes Percent Auto 6.2 2 - 11 % [facility] Eosinophils Percent Auto 2.0 0 - 4 % [facility] Basophils Percent Auto 1.1 0 - 2 % [facility] NRBC Pct Auto 0.0 0.0 - 0.2 /100WBC [facility] Neutrophils Absolute Auto 4.0 2.0 - 8.3 x10*3/uL [facility] Imm Gran Abs Auto 0.01 0.00 - 0.03 X10*3/uL [facility] Lymphocytes Absolute Auto 2.4 1.2 - 4.9 X10*3/uL [facility] Monocytes Absolute Auto 0.4 0.1 - 1.2 X10*3/uL [facility] Eosinophils Absolute Auto 0.1 0.0 - 0.4 X10*3/uL [facility] Basophils Absolute Auto 0.1 0.0 - 0.2 X10*3/uL [facility] NRBC Abs Auto 0.000 0.0 - 0.012 X10*3/uL [facility] Blood Venous blood specimen / Unknown 10/13/2024 4:12 PM EST 10/13/2024 5:51 PM EST us Lien Kwan MD LAB BLOOD ORDERABLES Final Re sult [facility] [address] [place] [address] [phone] documented in this encounter Visit Diagnoses Diagnosis Pelvic pain- Primary Acute pyelonephritis Acute pyelonephritis without lesion of renal medullary necrosis documented in this encounter Additional Health Concerns Assessment Noted Time PHQ-9 Depression Total Score: 4 12/24/19 24 2:58 PM EDT documented as of this encounter Care Teams Purchasing/Receiving Relationship Specialty Start Date End Date Kapil Quispe MD [address] [place] [id number] PCP - General Internal Medicine 01/09/20 documented as of this encounter
--- OUTSIDE RECORDS SUMMARY | 2024-10-13 18:17 | XMS_ITS | Encounter Summary ---
Author Organization [employer] Address [address] [facility] [place] [address] Care Team Providers Care Registered Nurse Hh Case Manager Name Role Phone Kapil Quispe MD Primary Care Prov ider Encounter Details Date Type Department Care Team (Latest Contact Info) Description 10/13/2024 Travel Social History Tobacco Use Types Packs/Day Years [...] documented as of this encounter Care Teams Registered Nurse Hh Case Manager Relationship Specialty Start Date End Date Kapil Quispe MD [address] [place] [address] PCP - General Internal Medicine 01/09/20 documented as of this encounter
--- OUTSIDE RECORDS SUMMARY | 2024-10-13 18:17 | XMS_ITS | Clinical Summary ---
Author Organization [facility] Address [address] [place] [id number] Care Team Providers Care White Work Cleaner Name Role Phone Unavailable Primary Care Provider [...]
--- OUTSIDE RECORDS SUMMARY | 2024-10-13 18:17 | XMS_ITS | Encounter Summary ---
Author Organization [employer] Address [address] [facility] [address]t [place] [address] Care Team Providers Care Campus Executive Director Name Role Phone Kapil Quispe MD Primary Care Prov ider Reason for Visit * Reason Onset Date Comments Nurse Triage 10/08/2024 Encounter Details Date Type Department Care Team ([facility] st Contact Info) Description 10/08/2024 Telephone [facility] MEDICINE [address] [place] [address] Kapil Quispe MD [address] [place], [place] [phone] Nurse Triage Social History Tobacco Use Types [...] way to the walk in center in [facility] as she was told by a PAR [...] caller accepted this outcome. Contact pt at [phone] documented in this encounter Plan of Treatment Not on file documented as of this encounter Visit Diagnoses Not on filedocumented in this encounter Additional Health Concerns Assessment Noted Time PHQ-9 Depression Total Score: 4 12/24/19 24 2:58 PM EDT documented as of this encounter Care Teams Campus Executive Director Relationship Specialty Start Date End Date Kapil Quispe MD [address] [place] [phone] PCP - General Internal Medicine 01/09/20 documented as of this encounter
--- OUTSIDE RECORDS SUMMARY | 2024-10-13 18:17 | XMS_ITS | Encounter Summary ---
Author Organization [employer] Address [address] [facility] [address] [place] [address] Care Team Providers Care Manuscripts Curator Name Role Phone Kapil Quispe MD Primary Care Prov ider Reason for Visit * Reason Onset Date Comments Nurse Triage 10/13/2024 Encounter Details Date Type Department Care Team ([facility] st Contact Info) Description 10/13/2024 Telephone [facility] CH[facility] MED & PEDS [address] [place] [address] Kapil Quispe MD [address] [place] [address] Nurse Triage Social History Tobacco Use Types [...] is your housing situation today? I have itsha amaya 12/04/[address] you [...] encounter Miscellaneous Notes * Telephone Encounter - Melani Urbano RN - 10/13/2024 2:20 PM EST Call returned to Alyce Davis to triage below. Reports having pain with passing urine x 2 weeks. Denies any odor, dark color or cloudy. Pt also endorse flank pain, pelvic pain . Pt denies any N/V or fever. Denies any vaginal discharge. Pt advised of disposition, agrees to [facility] app[place] today. Reviewedhome care advise, ER precautions and reasons to call back. Protocol Used: Urination Pain - Female (Adult) Protocol-Based Disposition: Go to Office or Video Visit Now Future Appointments Date Time Provider Department Center 10/13/2024 3:20 PM [facility] DAY [facility] Insurance verified as active per Real Time Eligibility in [facility]. Video visit offer not recorded Positive Triage Question: * Side (flank) or lower back pain present * All higher-acuity triage questions were negative Care Advice Discussed: * Reassurance and Education - Possible Urine Infection * Drink Extra Fluids * Reasons To Call Back - Fever or back pain occurs - You become worse * Telephone Encounter - Ariana Roche - 10/13/2024 2:16 PM EST Symptom: Urination Pain Outcome: Schedule a same-day appointment or talk to a nurse or provider today Reason: Caller denied all higher acuity questions The caller accepted this outcome. documented in this encounter Plan of Treatment Not on file documented as of this encounter Visit Diagnoses Not on filedocumented in this encounter Additional Health Concerns Assessment Noted Time PHQ-9 Depression Total Score: 4 12/24/19 24 2:58 PM EDT documented as of this encounter Care Teams Manuscripts Curator Relationship Specialty Start Date End Date Kapil Quispe MD [address] [place] [id number] PCP - General Internal Medicine 01/09/20 documented as of this encounter
--- OUTSIDE RECORDS SUMMARY | 2024-10-13 18:17 | XMS_ITS | Encounter Summary ---
Author Organization [employer] Address [address] [place] [address] [address] [place] [address] Care Team Providers Care Nursery School Teacher Name Role Phone Kapil Quispe MD Primary Care Prov ider Encounter Details Date Type Department Care Team ([facility] st Contact Info) Description 03/16/2023 Abstract [facility] MED & PEDS [address] [place] [address] Kapil Quispe MD [address] [place] [address] Social History Tobacco Use Types Packs/Day Years [...] on filedocumented in this encounter Care Teams Nursery School Teacher Relationship Specialty Start Date End Date Kapil Quispe MD [address] [place] [address] PCP - General Internal Medicine 01/09/20 documented as of this encounter
[2024-10-13 18:36] LABS: Anion Gap 11 (12-20); Blood Urea Nitrogen 9 mg/dL (9-16); Calcium 9.2 mg/dL (8.4-10.2); Carbon Dioxide 24 mmol/L (22-29); Chloride 109 mmol/L (96-108); Estimated Glomerular Filt Rate > 60; Glucose Random 86 mg/dL (60-115); Potassium 3.7 mmol/L (3.3-5.1); Sodium 140 mmol/L (135-145)
[2024-10-14 11:50] LABS: CT PCR NOT DETECTED (Not Detect.); NG PCR NOT DETECTED (Not Detect.)
[2024-10-14 14:58] LABS: Bacterial Vaginosis PCR NEGATIVE (Negative); Candida Group PCR DETECTED (Not Detect); Candida glab krusei PCR NOT DETECTED (Not Detect); Trichomonas vaginalis PCR NOT DETECTED (Not Detect)
== END 2024-10-13 16:11 | disposition home or self-care (01) ==
LOC: HO.CHCLDS 16:10
PROVIDERS: Visit Provider Internal Medicine
DX: R10.2 Pelvic and perineal pain (principal)
CPT/HCPCS: 36415; 80048; 81001; 81515; 85025; 87491; 87591

== ENCOUNTER 2024-11-14 12:59 | Outpatient (REF) | payer MEDICAID, SELFPAY ==
--- NOTE | 2024-11-14 13:03 | EMG_ITS ---
Chief complaint: Bilateral hand numbness, left worse than right Reason for referral: Evaluate for Carpal Tunnel Syndrome Referred by: Dr. Moreira Procedure done: Bilateral upper extremities NCS Precautions and/or limitations: Patient was anxious about the test, performed minimal NCS that would give us enough information. Needle EMG deferred. The limb temperature was monitored continuously and remained between 32-36 degrees C during the performance of the NCS. Nerve Conduction Studies Motor Summary Table ?Stim Site NR Onset (ms) Norm Onset (ms) O-P Amp (mV) Norm O-P Amp iAmp (mV) Amp (1st) (%) Site1 Site2 Delta-0 (ms) Dist (cm) Francis (m/s) Norm Francis (m/s) Left Median Motor (Abd Poll Brev) Wrist ? 3.1 <3.9 11.9 >4.5 13.5 100.0 Elbow Wrist 3.7 19.0 51 >45 Elbow ? 6.8 11.1 12.6 93.3 Right Median Motor (Abd Poll Brev) Wrist ? 3.4 <3.9 15.8 >4.5 18.8 100.0 Elbow Wrist 3.3 20.0 61 >45 Elbow ? 6.7 15.5 18.6 98.1 Left Ulnar Motor (Abd Dig Minimi) Wrist ? 2.6 <3.0 8.3 >5 9.6 100.0 B Elbow Wrist 3.0 18.0 60 >45 B Elbow ? 5.6 8.2 9.5 98.8 A Elbow B Elbow 1.8 10.0 56 >45 A Elbow ? 7.4 8.5 9.7 102.4 Right Ulnar Motor (Abd Dig Minimi) Wrist ? 2.6 <3.0 10.0 >5 12.0 100.0 B Elbow Wrist 2.8 18.0 64 >45 B Elbow ? 5.4 9.7 11.6 97.0 A Elbow B Elbow 1.7 10.0 59 >45 A Elbow ? 7.1 8.6 10.6 86.0 Comparison Summary Table ?Stim Site NR Peak (ms) Norm Peak (ms) P-T Amp (?V) Site1 Site2 Delta-P (ms) Norm Delta (ms) Left Median/Radial Dig I Comparison (Digit 1 - 10cm) Median ? 2.7 <2.9 99.3 Median Radial -0.3 Radial ? 3.0 <2.8 12.7 Right Median/Radial Dig I Comparison (Digit 1 - 10cm) Median ? 2.8 <2.9 73.1 Median Radial -0.3 Radial ? 3.1 <2.8 68.7 FINDINGS: All motor and sensory nerves tested showed normal latencies, amplitudes and conduction velocities. IMPRESSION: 1. This is a normal NCS. 2. There is no electrodiagnostic evidence for median neuropathy or ulnar neuropathy. Thank you for your kind referral. Dina Payne MD, AMAN Board Certified, [place] Board [employer] and Rehabilitation (ABPMR) Board Certified, [place] Board of Electrodiagnostic Medicine (ABEM) CODIN MTDD
== END 2024-11-14 13:00 | disposition home or self-care (01) ==
LOC: HO.NEURO 12:59
PROVIDERS: PCP Internal Medicine; Visit Provider Emergency Medicine
DX: R20.0 Anesthesia of skin (principal)
CPT/HCPCS: 95910

== ENCOUNTER → 2024-11-14 13:03 | Outpatient (BNV) | payer MEDICAID, SELFPAY | PROVIDERS: PCP Internal Medicine; Visit Provider Physical Medicine & Rehabilitation | DX: R20.0 Anesthesia of skin (principal); R20.2 Paresthesia of skin | CPT/HCPCS: 95910 ==

== ENCOUNTER 2024-11-24 08:08 | Outpatient (REF) | payer MEDICAID, SELFPAY ==
--- OUTSIDE RECORDS SUMMARY | 2024-11-24 08:28 | XMS_ITS | Clinical Summary ---
Author Organization [facility] Address [address] [facility] [address] [place] [address] Care Team Providers Care Supervisor Dried Yeast Name Role Phone Kapil Quispe MD Primary [...] in the morning. 30 tablet 11 4 Active Blood Pressure kit 1 kit Once [...] to 30 doses. 30 tablet 5 Active Miconazole Nitrate Applicator (Monistat 3 Combo Pack Yury) 200 & 2 MG-% (9GM) kitIndications:V aginal candidiasis Insert 1 Application into the vagina at bedtime. 1 kit 5 Active Active Problems Problem Noted Date Diagnosed Date Elevated blood pressure read ing in office without diagnosis of hypertension 12/24/2023 Assessment & Plan (12/24/2023 5:49 PM EDT): Will provide a bp monitor, keep bp log, keep low sodium diet, follow up in 1 month Physical exam 12/24/2023 Assessment & Plan (12/24/2023 5:52 PM EDT): Unremarkble, pap smear done by Ob-staple laster, she refers will undergo biopsy hx oh [...] Services needed PCP management Off-site services for BH. Referral for OP individual therapy and PPD program will be placed. Encounters Date Type Department Care Team Description 11/18/2024 Telephone [facility] [address] [place] [phone] Cong Mendoza MD 10/31/2024 Population Health Risk Score [facility] (C3) Department [address] [place] [phone] Provider, Population Health Generic 10/15/2024 Telephone [facility] [address] [place] [address] Lien Kwan MD 10/14/2024 Telephone [facility] [address] [place] [address] Kapil Quispe MD Medication Question 10/13/2024 3:20 PM EST Office Visit [facility] [address] [place] [address] Lien Kwan MD Pelvic pain (Primary Dx); Acute pyelonephritis 10/13/2024 Travel 10/13/2024 Telephone [facility] [address] [place], [place] [phone] Kapil Quispe MD Nurse Triage 10/08/2024 9:40 AM EST Office Visit [facility] [address] [place] [phone] Cong Mendoza MD Right wrist pain (Primary Dx); Numbness of fingers of both hands 10/08/2024 Telephone [facility] [address] [place] [phone] Kapil Quispe MD Nurse Triage from Last [...] Depression Screening 12/23/2024 12/24/2023, 12/24/19 Tobacco Screening 10/13/2025 10/13/2024 DTaP/Tdap/Td Vaccines (9 [...] Additional history exists HPV Vaccines Completed 11/21/2008, 0 11/2008, 07/28/2008, Additional history exists Meningococcal Vaccine [...] Routine 10/13/2024 4:12 PM EST Pelvic pain BASIC METABOLIC PANEL Routine 10/13/2024 4:12 PM EST Pelvic pain CHLAMYDIA/N. GONORRHOEAE RNA, TMA, UROGENITAL Routine 10/13/2024 4:07 PM EST Pelvic pain BACTERIAL VAGINOSIS PANEL Routine 10/13/2024 4:07 PM EST Pelvic pain URINALYSIS, COMPLETE, WITH [...] Appearance, UA clear QC Media Lot # Comment:[id number] Lot# Expiration Date Comment:11/17/2024 Urine 10/13/2024 4:15 PM EST us Lien Kwan MD POINT OF CARE TEST ENTER/EDIT ORDERABLES Final Result * CBC auto differential (10/13/2024 4:12 PM EST) White Blood Count 7.1 4.8 - 10.8 X10*3/uL [facility] Red Blood Count 4.53 4.20 - 5.50 X10*6/uL [facility] Hemoglobin 13.9 12.0 - 16.0 g/dl [facility] Hematocrit 41.8 37.0 - 47.0 % [facility] Mean Corpuscular Volume 92.3 80.0 - 98.0 fL [facility] Mean Corpuscular Hemoglobin 30.7 27.0 - 33.0 pg [facility] Mean Corpuscular HGB Conc 33.3 31.0 - 35.0 g/dl [facility] Red Cell Distribution Width 14.0 11.0 - 16.0 % [facility] Platelet Count 271 160 - 400 X10*3/uL [facility] Mean Platelet Volume 9.5 9.4 - 12.3 fL [facility] Neutrophils Percent Auto 56.4 45 - 73 % [facility] Imm Gran Pct Auto 0.1 0.0 - 0.4 % [facility] Lymphocytes Percent Auto 34.2 20 - 40 % [facility] Monocytes Percent Auto 6.2 2 - 11 % [facility] Eosinophils Percent Auto 2.0 0 - 4 % [facility] Basophils Percent Auto 1.1 0 - 2 % [facility] NRBC Pct Auto 0.0 0.0 - 0.2 /100WBC [facility] Neutrophils Absolute Auto 4.0 2.0 - 8.3 x10*3/uL [facility] Imm Gran Abs Auto 0.01 0.00 - 0.03 X10*3/uL [facility] Lymphocytes Absolute Auto 2.4 1.2 - 4.9 X10*3/uL [facility] Monocytes Absolute Auto 0.4 0.1 - 1.2 X10*3/uL [facility] Eosinophils Absolute Auto 0.1 0.0 - 0.4 X10*3/uL [facility] Basophils Absolute Auto 0.1 0.0 - 0.2 X10*3/uL [facility] NRBC Abs Auto 0.000 0.0 - 0.012 X10*3/uL [facility] Blood Venous blood specimen / Unknown 10/13/2024 4:12 PM EST 10/13/2024 5:51 PM EST Lien Kwan MD LAB BLOOD ORDERABLES Final Re sult Performing Organization Address [facility] Co de Phone Number [facility] [address] [place] [phone] * (ABNORMAL) Basic Metabolic Panel (10/13/2024 4:12 PM EST) Sodium 140 135 - 145 mmol/L [facility] Potassium 3.7 3.3 - 5.1 mmol/L [facility] Chloride 109(H) 96 - 108 mmol/L [facility] Carbon Dioxide 24 22 - 29 mmol/L [facility] Anion Gap 11(L) 12 - 20 [facility] Urea Nitrogen (BUN) 9 9 - 16 mg/dL [facility] Creatinine, Serum 0.76 0.5 - 1.4 mg/dL [facility] Estimated Glomerular Filt Rate >60 [facility] Comment:Chronic Kidney Disea se: Estimated GFR < 60 mL/min/1.79t9Nifojr Kidney Disease: Estimated GFR < 15 mL/min/1.73m2 Glucose 86 60 - 115 mg/dL [facility] Calcium 9.2 8.4 - 10.2 mg/dL [facility] Blood Venous blood specimen / Unknown 10/13/2024 4:12 PM EST 10/13/2024 5:51 PM EST Lien Kwan MD LAB BLOOD ORDERABLES Final Re sult Performing Organization Address [facility] Co de Phone Number [facility] [address] [place] [phone] * (ABNORMAL) Bacterial Vaginosis Panel (10/13/2024 4:07 PM EST) Pathologist [facility] TRICHOMONAS VAGINALIS DETECTION BY PCR NOT DETECTED Not Detect [facility] BACTERIAL VAGINOSIS DETECTION BY PCR NEGATIVE Negative [facility] Comment:The BV organism targ ets of the Xpert Xpress MVP test can becommensal in women; Xpert Xpress MVP positive results forbacterial vaginosis should be considered in conjunction withother clinical and patient information to determine thedisease status. Organisms that are not detected by the XpertXpress MVP test have also been reported to be associatedwith BV and aerobic vaginitis.The Xpert Xpress MVP test performance has not been evaluatedin patients under the age of 14. TERESA GROUP DETECTION BY PCR DETECTED(A) Not Detect [facility] Teresa glab krusei PCR NOT DETECTED Not Detect [facility] Swab Vaginal structure / Unknown 10/13/2024 4:07 PM EST 10/13/2024 5:54 PM EST Lien Kwan MD LAB MICROBIOLOGY - GENERAL OR DERABLES Final Result [facility] [address] [place] [phone] * Chlamydia/N. Gonorrhoeae RNA, TMA, Urogenitial (10/13/2024 4:07 PM EST) CT PCR NOT DETECTED Not Detect. [facility] Comment:A not detected test result does not exclude the possibilityof infection because test results can be affected byimproper specimen collection, concurrent antibiotic therapy,or the number of organisms in the specimen which may bebelow the sensitivity of the test. As with many diagnostictests, results from the Xpert CT/NG assay should beinterpreted in conjunction with other laboratory andclinical data available to the clinician.Xpert CT/NG performance has not been evaluated in patientsless than 14 years of age. The assay should not be used forthe evaluationof suspected sexual abuse or for other medico-legalindications. Additional testing is recommended in anycircumstance when false positive or false negative resultscould lead to adverse medical, social or psychologicalconsequences. NG PCR NOT DETECTED Not Detect. [facility] Comment:A not detected test result does not exclude the possibilityof infection because test results can be affected byimproper specimen collection, concurrent antibiotic therapy,or the number of organisms in the specimen which may bebelow the sensitivity of the test. As with many diagnostictests, results from the Xpert CT/NG assay should beinterpreted in conjunction with other laboratory andclinical data available to the clinician.Xpert CT/NG performance has not been evaluated in patientsless than 14 years of age. The assay should not be used forthe evaluationof suspected sexual abuse or for other medico-legalindications. Additional testing is recommended in anycircumstance when false positive or false negative resultscould lead to adverse medical, social or psychologicalconsequences. Swab (Vaginal Swab) 10/13/2024 4:07 PM EST 10/13/2024 5:54 PM EST Narrative [facility] - 10/14/2024 11:50 AM EST Vaginal us Lien Kwan MD LAB MICROBIOLOGY - GENERAL OR DERABLES Final Result [facility] [address] [place] [address] [phone] * (ABNORMAL) Urinalysis, Complete, with Reflex to Culture (10/13/2024 12:00 AM EST) Color Urine Yellow [facility] Appearance Urine Clear [facility] PH 5.5 5.0 - 9.0 [facility] Glucose Urine UA Negative Negative mg/dL [facility] Urine Blood Negative Negative [facility] Specific [place] - Urine >=1.030(H) 1.005 - 1.025 [facility] Urine Protein Negative Neg-Trace mg/dL [facility] Urine Ketones Trace Negative mg/dL [facility] Nitrite Urine Negative Negative [facility] Leukocyte Esterase Urine Negative Negative [facility] RBC Urine 0-2 0 - 2 /HPF [facility] Urine WBC 0-5 0 - 5 /HPF [facility] Urine Squamous Epithelial Cell 0-2 0 - 2 /HPF [facility] Urine Bacteria None Seen None Seen [facility] Hyaline Casts, Urine 0-2 0 - 2 /LPF [facility] Urine 10/13/2024 10/13/2024 Narrative [facility] - 10/13/2024 6:20 PM EST [id number], Clean Catch us Lien Kwan MD LAB URINE ORDERABLES Final Re sult [facility] [address] [place] [address] [phone] * XR Wrist 3+ Views Right (10/08/2024 10:37 AM EST) Anatomical Region Laterality Modality Upper Extremities, Wrist Right Radiogr aphic Imaging 10/08/2024 10:3 7 AM EST Narrative 10/08/2024 11:28 AM EST ?[facility] ?[address] ?[place] [address] ?XRay Report ? Signed ? Patient: Davis,Alyce ?MR#: [id number] ? : 1995 ?Acct:[id number] ? Age/Sex: 29 / F ?ADM Date: 10/08/24 ? Loc: HO.HHCX ? Attending Dr: Cong Mendoza MD ? Ordering Physician: CONG MENDOZA MD ?? Date of Service: 10/08/24 ?? Procedure(s): XR wrist RT min 3V ?? Accession Number(s): [id number] ? cc: CONG MENDOZA MD ? EXAMINATION: [...] DD/ 1037 ? TD/TT: 10/08/24 1100 ? De Alcoholizer: ? Procedure Note Donotuseinterpreter, Image - 10/08/[address] [address] XRay Report Signed Patient: Sumit Davis#: [id number] : 1995Acct:[id number] Age/Sex: 29 FADM Date: 10/08/24 Loc: HO.HHCX Attending Dr: Cong Mendoza MD Ordering Physician: CONG MENDOZA MD Date of Service: 10/08/24 Procedure(s): XR wrist RT min 3V Accession Number(s): [id number] cc: CONG MENDOZA MD EXAMINATION: XR WRIST, [...] 10/08/24 1125 DD/ 1037 TD/TT: 10/08/24 1100 De Alcoholizer: Cong Mendoza MD IMG XR PROCEDURES Edited Result - Final * Hm Pap Smear (12/11/2022) Historical Provider HEALTH MAINTENANCE Final Result * HEPATITIS C ANTIBODY RFLX (08/28/2019 1:37 PM EST) HEPATITIS C ANTIBODY [facility] Comment: Antibodies to HCV not detected; does not exclude early acute HCV infection. 08/28/2019 1:37 PM EST Historical Provider HISTORICAL/NON ORDERABLE LABS Final Result Performing Organization Address [facility] Phone Number [facility] [address] * HIV AB/AG (08/28/2019 1:37 PM [...] detection of this assay. ?? The [employer] Tipple Tender HIV Ag/Ab Combo assay result and supplemental assay results should be interpreted in conjunction with the patient's clinical presentation, history and other laboratory results. ??If the results are inconsistent with clinical evidence, additional testing is suggested to confirm the result. 08/28/2019 1:37 PM EST Historical Provider HISTORICAL/NON ORDERABLE LABS Final Result Performing Organization Address [facility] Phone Number [facility] [address] from Last 3 Months or Most Recently Relevant to Health Maintenance Insurance [facility] C3 Care Teams Supervisor Dried Yeast Relationship Specialty Start Date End Date VelázquezKapil Mayer MD [address] [place] [address] [place] [phone] PCP - General Internal Medicine 01/09/20
--- OUTSIDE RECORDS SUMMARY | 2024-11-24 08:28 | XMS_ITS | Clinical Summary ---
Author Organization [facility] Address [address] [place] [id number] Care Team Providers Care Car Checker Name Role Phone Unavailable Primary Care Provider [...] - 19+ 3-dose series) 2015 Influenza Vaccine (Season Ended) 2025 Pneumococcal Vaccine: Pediat rics (0 to 5 Years) and At-Risk Patients (6 to 64 Years) Aged Out No longer eligi ble based on patient's age to complete this topic Insurance [place]ICAID [place]
--- OUTSIDE RECORDS SUMMARY | 2024-11-24 08:28 | XMS_ITS | Clinical Summary ---
Author Organization [facility] Address [address] [facility] [place] [address] Care Team Providers Care Parcel Contractor Name Role Phone Community, Pcp Primary Care Provider Unavailabl e Allergies Active Allergy Reactions Severity Noted Date Comments Seasonal Allergies 10/11/2015 Medications Medication Sig Dispensed Refills Start Date End Date Status ALBUTEROL SULFATE 108 (90 BASE) MCG/ACT Aero Soln Inhale 2 Puffs into the lungs 4 times daily as needed for Cough, Wheezing or Shortness of Breath. 1 Inhaler 5 05/10/2016 Active amitriptyline (ELAVIL) 25 MG tablet Take 25 mg by mouth at bedtime. 0 Active levetiracetam (KEPPRA) 750 MG tablet Take 750 mg by mouth 2 times daily. 0 Active Folic Acid 0.8 MG Cap Take 1 Tab by mouth daily. 0 Active Vit-Fe Fumarate-FA ( PLUS) 27-1 MG TabIndications:Enco unter for supervision of other normal in first trimester Take 1 Tab by mouth daily. 90 Tab 3 01/29/2018 Active ondansetron (ZOFRAN) 8 MG tabletIndications:N ausea and vomiting during Take 1 Tab by mouth 2 times daily as needed for Nausea for up to 7 days. 30 Tab 1 01/29/2018 Active promethazine (PHENERGAN) [address] 1 Suppository rectally every 6 hours as needed for Nausea for up to 7 days. 30 Each 0 02/06/2018 Active Active Problems Problem Noted Date Seizures 01/30/2018 Overview: 2 seizures in the last 2 years, Seeing neurology Dr. Medeiros, medication Keppra 750mg BID Last seizure Aug 2016 Needs Anesthesia consult MFM consult Encounter for supervision of other ruddy l 01/29/2018 Overview: 1. [place] site: [facility] [facility] 2. Delivery site: [facility] 3. Dating criteria: LMP confirmed by 1st trimester ultrasound 3. Blood type: B+ 4. Genetic screening: Date: Result: 5. GBS: Date: 6. FOB name: Eric 7. Plans A. Epidural or other pain management - B. Labor support identified - C. Tdap - Date: D. Breast or Bottle feed: breast E. Baby's name - F. Circumcision - G. Hx of epilepsy. Depression 09/28/2015 Asthma 09/28/2015 Migraine 09/28/2015 Eczema 09/28/2015 Allergic rhinitis 09/28/2015 Immunizations Name Administration Dates Next Due DTaP 07/06/2000, 8,01/02/1997,1996,08/20 HIB 10/09/1997,01/02/1997,1996 ,1996 HPV (Gardasil) 11/21/2008,07/28/2008,06/30/2008 Hepatitis B-3 Dose (<19yrs) 1996, 6 Influenza (> 6 Months) 05/10/2016,06/02/2015 MMR (Xkvqjie-Innxu-Gldudzk) 07/06/2000, 8 Meningococcal (Menactra) 08/05/2010 Polio (OPV) 01/02/1997,1996,1996 Tdap 06/30/2008 Varicella 07/06/2000,01/27/1998 Family History Medical History Relation Name Comments Cancer, Other Maternal Grandfather Skin C ancer Hypertension Maternal Grandmother Relation Name Status Comments Maternal Grandfather Maternal Grandmother Social History Tobacco Use Types Packs/Day Years Used Date Smoking Tobacco: Never Smokeless Tobacco: Never Alcohol Use Standard Drinks/Week Comments Yes 0 (1 standard drink = 0.6 oz pur e alcohol) Socially Sex Assigned at Date Recorded Not on file Last Filed Vital Signs Vital Sign Reading Time Taken Comments Blood Pressure 114/68 02/08/2018 9:01 AM EDT Pulse 98 02/08/2018 9:01 AM EDT Temperature 36.7 ??C (98 ??F) 05/10/2016 2:58 PM EDT Respiratory Rate 14 02/08/2018 9:01 AM EDT Oxygen Saturation - - Inhaled Oxygen Concentration - - Weight 71.7 kg (158 lb) 02/08/2018 9:01 AM EDT Height 157.5 cm (5' 2 ) 05/10/2016 2:58 PM EDT Body Mass Index 28.9 05/10/2016 2:58 PM EDT Plan of Treatment Health Maintenance Due Date Last Done Comments Covid-19 Vaccine (#1) 1996 PNEUMOCOCCAL VACCINE FOR HIG H RISK PATIENTS (#1) 2015 CERVICAL CANCER SCREENING 2017 DTAP/TDAP/TD (7 - Td or Tdap) 06/30/2018, 07/06/2000, 10/09/1997, Additional history exists CHOLESTEROL SCREENING 10/11/2020 10/11/2015 BASELINE HEALTH EXAM 18-39 05/10/2021 05/10/2016 BMI CHECK/ADVISE 08/20/2024 INFLUENZA (Season Ended) 2025 05/10/2016, 05/20 Care Teams Parcel Contractor Relationship Specialty Start Date End Date Community, Pcp PCP - General Internal Medicine 08/16/16
--- OUTSIDE RECORDS SUMMARY | 2024-11-24 08:28 | XMS_ITS | Encounter Summary ---
Author Organization [facility] Address [address] [place] [address] Care Team Providers Care Calendar Control Clerk Blood Bank Name Role Phone Ej Mitchell MD Primary Care Provider [phone] [facility], Pcp Primary Care Provider Amador whitney Encounter Details Date Type Department Care Team Description 10/13/2015 Release of Information Medical Records [address] [place] [id number] Abstract, Provider Social History Tobacco Use Types Packs/Day Years Used Date Smoking Tobacco: Never Alcohol Use Standard Drinks/Week Comments No 0 (1 standard drink = 0.6 oz pur e alcohol) Sex Assigned at Date Recorded Not on file documented as of this encounter Plan of Treatment Not on file documented as of this encounter Visit Diagnoses Not on filedocumented in this encounter Care Teams Calendar Control Clerk Blood Bank Relationship Specialty Start Date End Date Ej Mitchell MD [address] [place] [address] [phone] PCP - General Internal Medicine 07/21/15 08/15/16 [facility], Pcp [address] [place] [phone] PCP - General Internal Medicine 08/16/16 documented as of this encounter
--- OUTSIDE RECORDS SUMMARY | 2024-11-24 08:28 | XMS_ITS | Encounter Summary ---
Author Organization [facility] Address [address] [facility] [place] [address] Care Team Providers Care Family Engagement Specialist Name Role Phone Ej Mitchell MD Primary Care Provider [phone] [facility], Pcp Primary Care Provider Unavaildiego e Reason for Visit * Reason Onset Date Comments REFERRAL 03/08/2016 Encounter Details Date Type Department Care Team Description 03/08/2016 Telephone Dermatology [address] [place] [address] Aung King PA-C REFERRAL Social History Tobacco Use Types Packs/Day Years Used Date Smoking Tobacco: Never Smokeless Tobacco: Never Alcohol Use Standard Drinks/Week Comments No 0 (1 standard drink = 0.6 oz pur e alcohol) Sex Assigned at Date Recorded Not on file documented as of this encounter Miscellaneous Notes * Telephone Encounter - Dayanara Martin - 03/08/2016 9:00 AM EDT Patient was referred to Dermatology for hair loss. Patient no showed appointment on 03/02/16. Tried to contact patient several times to reschedule with no response. Patient will be taken off of referrals report. FYI documented in this encounter Plan of Treatment Not on file documented as of this encounter Visit Diagnoses Not on filedocumented in this encounter Care Teams Family Engagement Specialist Relationship Specialty Start Date End Date Ej Mitchell MD [address] [place] [phone] PCP - General Internal Medicine 07/21/15 08/15/16 [facility], Pcp [address] [place] [phone] PCP - General Internal Medicine 08/16/16 documented as of this encounter
--- OUTSIDE RECORDS SUMMARY | 2024-11-24 08:28 | XMS_ITS | Encounter Summary ---
Author Organization [facility] Address [address] [place] [address] Care Team Providers Care Operator Maintainer Name Role Phone Ej Mitchell MD Primary Care Provider [phone] [facility], Pcp Primary Care Provider Unavailabl e Reason for Visit * Reason Onset Date Comments Faxed Refill 04/10/2016 Encounter Details Date Type Department Care Team Description 04/10/2016 Refill Adult Medicine [facility] [address] [place] [address] [phone] Ej Mitchell MD [address] [place] [address] [phone] Faxed Refill Social History Tobacco Use Types Packs/Day Years Used Date Smoking Tobacco: Never Smokeless Tobacco: Never Alcohol Use Standard Drinks/Week Comments No 0 (1 standard drink = 0.6 oz pur e alcohol) Sex Assigned at Date Recorded Not on file documented as of this encounter Miscellaneous Notes * Telephone Encounter - Jessica Jacome M.A. - 04/10/2016 1:07 PM EDT Call patient left message to call office back to schedule appt * Telephone Encounter - Lynn Garrison M.A. - 04/10/2016 10:23 AM EDT Pt would need an appt. Please schedule. Thanks Himanshu dia * Telephone Encounter - Jolly Go - 04/10/2016 10:03 AM EDT Patient would like script to be: E-PRESCRIBED/FAXED TO PHARMACY When was the patients last office visit in Adult Medicine?: 10-11-2015 When was the last time the patient saw their PCP? Same as above Does patient have an upcoming appointment? No-patient refused appointment, will call back to book appointment (THE MEDICATION IS NOT ON THE MED LIST AND IS IDENTIFIED BELOW): {MED LIST:60117) Med name: Triamcinolone cream Dosage: 0.1 mg # of tablets: n/a Local pharmacy with request for 30 -day supply Instructions: Apply daily for excema Did you check the pharmacy information above?: YES Patients current insurance carrier: Payor: [employer] F[employer] / Plan: FFS HMO $0 [employer] [id number] / Product Type: MEDICAID RISK documented in this encounter Plan of Treatment Not on file documented as of this encounter Visit Diagnoses Not on filedocumented in this encounter Care Teams Operator Maintainer Relationship Specialty Start Date End Date Ej Mitchell MD [address] [place] [id number] PCP - General Internal Medicine 07/21/15 08/15/[address] [address] PCP - General Internal Medicine 08/16/16 documented as of this encounter
--- OUTSIDE RECORDS SUMMARY | 2024-11-24 08:28 | XMS_ITS | Encounter Summary ---
Author Organization [employer] Address [address] [place] [address] [address] [place] [address] Care Team Providers Care Traffic Court Referee Name Role Phone Kapil Quispe MD Primary Care Prov ider Encounter Details Date Type Department Care Team ([facility] st Contact Info) Description 03/16/2023 Abstract [facility] [address] [place] [address] Kapil Quispe MD [address] [place] [address] Social History Tobacco Use Types Packs/Day Years [...] on filedocumented in this encounter Care Teams Traffic Court Referee Relationship Specialty Start Date End Date Kapil Quispe MD [address] [place] [address] PCP - General Internal Medicine 01/09/20 documented as of this encounter
--- OUTSIDE RECORDS SUMMARY | 2024-11-24 08:28 | XMS_ITS | Encounter Summary ---
Author Organization [email or web address] Address [address] [facility] [address] [place] [address] Care Team Providers Care House Carpenter Name Role Phone Kapil Quispe MD Primary Care Prov ider Reason for Visit * Reason Onset Date Comments Med Refill 08/28/2022 Encounter Details Date Type Department Care Team (Late st Contact Info) Description 08/28/[address] [facility] [address] [place] [address] Kapil Quispe MD [address] [place], [place] [phone] Med Refill Social History Tobacco Use Types [...] on filedocumented in this encounter Care Teams House Carpenter Relationship Specialty Start Date End Date VelázquezKapil Mayer MD [address] [place] [phone] PCP - General Internal Medicine 01/09/20 documented as of this encounter
--- OUTSIDE RECORDS SUMMARY | 2024-11-24 08:28 | XMS_ITS | Encounter Summary ---
Author Organization [facility] Address [address] [facility] [place] [address] Care Team Providers Care Forest Economist Name Role Phone Community, Pcp Primary Care Provider Amador whitney Encounter Details Date Type Department Care Team Description 01/15/2018 Automotive Brake Specialist Report Medical Records [address] [place] [phone] Boris Medeiros MD Social History Tobacco Use Types Packs/Day Years [...] on filedocumented in this encounter Care Teams Forest Economist Relationship Specialty Start Date End Date Community, Pcp PCP - General Internal Medicine 08/16/16 documented as of this encounter
--- OUTSIDE RECORDS SUMMARY | 2024-11-24 08:28 | XMS_ITS | Encounter Summary ---
Author Organization [employer] [facility] Address [address] [facility] 7[address] [place] [address] Care Team Providers Care Ultrasound Technol Name Role Phone Kapil Quispe MD Primary Care Prov ider Encounter Details Date Type Department Care Team (Late st Contact Info) Description 03/16/2023 Orders Only [facility] [address] [place] [phone] Provider, MD Jeovany Social History Tobacco Use [...] on filedocumented in this encounter Care Teams Ultrasound Technol Relationship Specialty Start Date End Date Kapil Quispe MD [address] [facility] [place] [address] PCP - General Internal Medicine 01/09/20 documented as of this encounter
== END 2024-11-24 08:09 | disposition home or self-care (01) ==
LOC: HO.HOSX 08:08
DX: Z13.89 Encounter for screening for other disorder (principal)

== ENCOUNTER 2025-03-10 10:39 | Outpatient (REF) | payer MEDICAID, SELFPAY ==
--- OUTSIDE RECORDS SUMMARY | 2025-03-10 11:50 | XMS_ITS | Clinical Summary ---
Author Organization [facility] Address [address] [place] [address] Care Team Providers Care Special Needs Tutor Name Role Phone Unavailable Primary Care Provider [...] 19+ 3-dose series) 2015 Influenza Vaccine (#1) 2025 Pneumococcal Vaccine: Peds ( 0 to 5 Years) and At-Risk Patients (6 to 49 Years) Aged Out No longer eligible b ased on patient's age to complete this topic Insurance Medicaid [place]
--- OUTSIDE RECORDS SUMMARY | 2025-03-10 11:50 | XMS_ITS | Encounter Summary ---
Author Organization [employer] Address [address] [facility] 7[address] [place] [address] Care Team Providers Care Bed Operator Name Role Phone Kapil Quispe MD Primary Care Prov ider Encounter Details Date Type Department Care Team (Late st Contact Info) Description 03/16/2023 Orders Only [facility] [address] [place] [address] Provider, Jeovany, Social History Tobacco Use Types Packs/Day Years [...] on filedocumented in this encounter Care Teams Bed Operator Relationship Specialty Start Date End Date Kapil Quispe MD [address] [facility] [place] [address] PCP - General Internal Medicine 01/09/20 documented as of this encounter
[2025-03-10 22:32] LABS: Bacterial Vaginosis PCR NEGATIVE (Negative); Candida Group PCR NOT DETECTED (Not Detect); Candida glab krusei PCR NOT DETECTED (Not Detect); Trichomonas vaginalis PCR NOT DETECTED (Not Detect)
[2025-03-10 23:00] LABS: CT PCR NOT DETECTED (Not Detect.); NG PCR NOT DETECTED (Not Detect.)
[2025-03-11 06:53] LABS: Follicle Stimulating Hormone 7.8 mIU/mL
== END 2025-03-10 10:40 | disposition home or self-care (01) ==
LOC: HO.HHCL 10:39
PROVIDERS: PCP Internal Medicine; Visit Provider Internal Medicine
DX: N91.1 Secondary amenorrhea (principal); N89.8 Other specified noninflammatory disorders of vagina
CPT/HCPCS: 36415; 81515; 82672; 83001; 84146; 84443; 84702; 87491; 87591